=== PATIENT | male | born 1960 | race Caucasian/White ===

== ENCOUNTER 2021-02-07 11:41 | Emergency (ER) | payer OTHER ==
[2021-02-07 11:45] VITALS: TEMP 98
--- NOTE | 2021-02-07 12:02 | ED ---
General Adult HPI - General Chief complaint: Recheck/Abnormal Lab/Rx Stated complaint: cough, let sided abd pain Source: patient, RN notes reviewed, old records reviewed Mode of arrival: ambulatory Limitations: no limitations - History of Present Illness Initial comments: 61-year-old well-appearing alert and oriented 4 white male presents to the emergency room with complaints of cough since last Monday. He denies any fevers, chest pain, nausea vomiting or diarrhea. He states that his father was just diagnosed with pneumonia and told him his symptoms sounded similar to his and to come get checked out. Patient states that he decided to come in today because he's been coughing so hard that he feels like he pulled a muscle in his left side. He tried taking NyQuil and honey with no relief. Patient states the cough is nonproductive. He has a history of diabetes and hypertension -: days(s) (6) Location: abdomen (Left-sided abdominal) Severity scale (1-10): 7 Consistency: intermittent Improves with: rest Worsens with: other (Cough) Associated Symptoms: cough Treatments Prior to Arrival: other (honey, NyQuil) - Related Data Home Medications Medication Instructions Recorded Confirmed Clopidogrel [Plavix] 75 mg PO DAILY 04/02/18 07/09/18 amLODIPine [Norvasc] 10 mg PO DAILY 04/02/18 07/09/18 glipiZIDE [Glucotrol] 5 mg PO AC-BRKFST 04/02/18 07/09/18 Allergies Allergy/AdvReac Type Severity Reaction Status Date / Time No Known Allergies Allergy Verified 02/07/21 11:45 Review of Systems ROS Statement: Those systems with pertinent positive or pertinent negative responses have been documented in the HPI. ROS Other: All systems not noted in ROS Statement are negative. Past Medical History Past Medical History: Diabetes Mellitus, Hypertension History of Any Multi-Drug Resistant Organisms: None Reported Past Surgical History: Cholecystectomy Additional Past Surgical History / Comment(s): march 2018 left 5th toe amputation. Past Psychological History: No Psychological Hx Reported Smoking Status: Never smoker Past Alcohol Use History: None Reported Past Drug Use History: None Reported - Past Family History Father Family Medical History: AFIB, Hypertension Mother Family Medical History: Rheumatoid Arthritis (RA) General Exam Limitations: no limitations General appearance: alert, in no apparent distress Head exam: Present: atraumatic, normocephalic, normal inspection Eye exam: Present: normal appearance, PERRL, EOMI. Absent: scleral icterus, conjunctival injection, periorbital swelling ENT exam: Present: normal exam, normal oropharynx, mucous membranes moist Neck exam: Present: normal inspection, full ROM. Absent: tenderness, meningismus, lymphadenopathy Respiratory exam: Present: normal lung sounds bilaterally. Absent: respiratory distress, wheezes, rales, rhonchi, stridor, chest wall tenderness, accessory muscle use, decreased breath sounds Cardiovascular Exam: Present: regular rate, normal rhythm, normal heart sounds. Absent: systolic murmur, diastolic murmur, rubs, gallop, clicks GI/Abdominal exam: Present: distended. Absent: tenderness, guarding, rebound, rigid, mass, hernia Extremities exam: Present: normal inspection, full ROM, normal capillary refill. Absent: tenderness, pedal edema, joint swelling, calf tenderness Back exam: Present: full ROM. Absent: tenderness, CVA tenderness (R), CVA tenderness (L) Neurological exam: Present: alert, oriented X3, CN II-XII intact Psychiatric exam: Present: normal affect, normal mood Skin exam: Present: warm, dry, intact, normal color. Absent: rash, cyanosis, diaphoretic, petechiae, pallor Course Vital Signs 02/07/21 02/07/21 02/07/21 11:42 11:45 12:43 Temperature 98.0 F Pulse Rate 77 80 Pulse Rate [ 80 [facility] ] Respiratory 18 20 20 Rate Blood Pressure 206/104 152/101 O2 Sat by Pulse 96 97 Oximetry 02/07/21 13:34 Temperature 98.0 F Pulse Rate 82 Pulse Rate [ [facility] ] Respiratory 18 Rate Blood Pressure 158/91 O2 Sat by Pulse 98 Oximetry Medical Decision Making - Medical Decision Making Chest x-ray shows no acute pulmonary process. Patient has been afebrile and his oxygen saturation was 96% in the emergency room. He denies any chest pain, nausea , vomiting or diarrhea. States reason for visit today was he felt he pulled a muscle in the left side of his abdomen with coughing. This left-sided abdominal pain is reproducible with palpation or when patient tries to sit forward. He did get his coronavirus vaccine series in October of this year and tested negative here in the ER today. He believes that this is just a common cold as he gets them a couple times a year and usually exacerbated with his air conditioning. He states again he was here just because of muscle pain and to get some pain medication for his left side. Patient is well-appearing and was directed to return to the emergency room with any worsening symptoms. He was given some Tylenol threes to help sleep at night and directed to follow up with his primary care doctor in 1 week. Case was discussed with Dr. Interiano.. - Lab Data Lab Results 02/07/21 Range/Units 12:36 Coronavirus (PCR) Not Detected (Not Detectd) Disposition Clinical Impression: Abdominal muscle strain Disposition: HOME SELF-CARE Condition: Good Instructions (If sedation given, give patient instructions): Muscle Strain (ED) Additional Instructions: Return to the emergency room with any worsening symptoms including chest pain, worsening cough, fevers or shortness of breath. Follow-up with the primary care doctor in 1 week. Is patient prescribed a controlled substance at d/c from ED?: No Referrals: Anthony Potter [Primary Care Provider] - 1-2 days Time of Disposition: 13:16
[2021-02-07] MEDS ORDERED: HYDROcodone/APAP 5-325MG 1 EACH TAB PO STA (12:04)
--- NOTE | 2021-02-07 12:16 | XR ---
EXAMINATION TYPE: XR chest 2V DATE OF EXAM: 02/07/2021 COMPARISON: None INDICATION: Cough TECHNIQUE: Frontal and lateral views of the chest are obtained. FINDINGS: The heart size is normal. The pulmonary vasculature is normal. The lungs are clear. Nipple shadows. Be present bilaterally. IMPRESSION: 1. No acute pulmonary process.
[2021-02-07] MEDS ORDERED: ACET/COD 300 MG/30 MG STARTER PACK 6 TAB BTL PO STA (13:16)
[2021-02-07 13:37] VITALS: BP 158/91; PULSE 82; RESP 18
== END 2021-02-07 13:34 | disposition home or self-care (01) ==
LOC: EC 11:41
DX: S39.011A Strain of muscle, fascia and tendon of abdomen, initial encounter (principal); E11.9 Type 2 diabetes mellitus without complications; I10 Essential (primary) hypertension; Z82.49 Family history of ischemic heart disease and other diseases of the circulatory system; Z79.84 Long term (current) use of oral hypoglycemic drugs; Z79.899 Other long term (current) drug therapy; X58.XXXA Exposure to other specified factors, initial encounter
CPT/HCPCS: 71046; 87635; 99284

== ENCOUNTER 2021-02-26 10:29 | Emergency (ER) | payer OTHER ==
[2021-02-26 10:47] VITALS: RESP 20; TEMP 98.1
--- NOTE | 2021-02-26 12:12 | ED ---
Abdominal Pain HPI - General Chief Complaint: Abdominal Pain Stated Complaint: unable to urinate Time Seen by Provider: 02/26/21 10:51 Source: patient, RN notes reviewed Mode of arrival: ambulatory Limitations: no limitations - History of Present Illness Initial Comments: This a 61-year-old male presents emergency department complaint of lower abdominal pressure, unable to urinate. Patient states his only been getting some dribbling out. He's never been diagnosed with prostate issues. Patient states never any urinary tract infection no. Showed no upper abdominal pain. He states just feels pressure that he has to urinate. Patient denies flank pain chest pain shortness of breath or any other complaints - Related Data Home Medications Medication Instructions Recorded Confirmed glipiZIDE [Glucotrol] 5 mg PO AC-BID 04/02/18 02/26/21 Brimonidine Tartrate/Timolol 1 drop BOTH EYES BID 02/26/21 02/26/21 [Combigan 0.2%-0.5% Eye Drops] Latanoprost [Xalatan 0.005%] 1 drop BOTH EYES HS 02/26/21 02/26/21 Losartan Potassium 50 mg PO DAILY 02/26/21 02/26/21 metFORMIN HCL [Glucophage] 1,000 mg PO BID 02/26/21 02/26/21 Previous Rx's Medication Instructions Recorded Sulfamethox-Tmp 800-160Mg [Bactrim 1 each PO Q12HR #20 tab 02/26/21 Ds] Allergies Allergy/AdvReac Type Severity Reaction Status Date / Time No Known Allergies Allergy Verified 02/26/21 11:59 Review of Systems ROS Statement: Those systems with pertinent positive or pertinent negative responses have been documented in the HPI. ROS Other: All systems not noted in ROS Statement are negative. Past Medical History Past Medical History: Diabetes Mellitus, Hypertension History of Any Multi-Drug Resistant Organisms: None Reported Past Surgical History: Cholecystectomy Additional Past Surgical History / Comment(s): march 2018 left 5th toe amputation. Past Psychological History: No Psychological Hx Reported Smoking Status: Never smoker - Past Family History Father Family Medical History: AFIB, Hypertension Mother Family Medical History: Rheumatoid Arthritis (RA) General Exam Limitations: no limitations General appearance: alert, in no apparent distress Head exam: Present: atraumatic, normocephalic, normal inspection Respiratory exam: Present: normal lung sounds bilaterally. Absent: respiratory distress, wheezes, rales, rhonchi, stridor Cardiovascular Exam: Present: regular rate, normal rhythm, normal heart sounds. Absent: systolic murmur, diastolic murmur, rubs, gallop, clicks GI/Abdominal exam: Present: soft, tenderness (Suprapubic), normal bowel sounds. Absent: distended, guarding, rebound, rigid Back exam: Absent: CVA tenderness (R), CVA tenderness (L) Course Vital Signs 02/26/21 10:45 Temperature 98.1 F Pulse Rate 105 H Respiratory 20 Rate Blood Pressure 139/60 O2 Sat by Pulse 96 Oximetry Medical Decision Making - Medical Decision Making This a 61-year-old male presents emergency department for difficulty urinating. Patient does not have significant retention. Patient does have evidence of urinary tract infection. Patient we discharged on oral antibiotics return parameters were discussed. - Lab Data Lab Results 02/26/21 Range/Units 11:33 Urine Color Yellow Urine Appearance Cloudy (Clear) Urine pH 5.5 (5.0-8.0) Ur Specific [place] 1.014 (1.001-1.035) Urine Protein 2+ H (Negative) Urine Glucose (UA) Negative (Negative) Urine Ketones Trace H (Negative) Urine Blood Moderate H (Negative) Urine Nitrite Negative (Negative) Urine Bilirubin Negative (Negative) Urine Urobilinogen <2.0 (<2.0) mg/dL Ur Leukocyte Esterase Large H (Negative) Urine RBC 7 H (0-5) /hpf Urine WBC 91 H (0-5) /hpf Urine WBC Clumps Occasional H (None) /hpf Ur Squamous Epith Cells <1 (0-4) /hpf Urine Bacteria Rare H (None) /hpf Urine Mucus Rare H (None) /hpf Disposition Clinical Impression: Urinary tract infection Disposition: HOME SELF-CARE Condition: Stable Instructions (If sedation given, give patient instructions): Urinary Tract Infection in Men (ED) Additional Instructions: Please return to the Emergency Department if symptoms worsen or any other concerns. Prescriptions: Sulfamethox-Tmp 800-160Mg [Bactrim Ds] 1 each PO Q12HR #20 tab Is patient prescribed a controlled substance at d/c from ED?: No Referrals: Anthony Potter [Primary Care Provider] - 1-2 days Musa Galloway MD [STAFF PHYSICIAN] - 1-2 days Time of Disposition: 12:46
[2021-02-26 12:22] LABS: Appearance,Urine Cloudy (Clear); Bacteria,Urine Rare /hpf; Bilirubin,Urine Negative (Negative); Blood,Urine Moderate (Negative); Color,Urine Yellow; Glucose,Urine (UA) Negative (Negative); Ketones,Urine Trace (Negative); Leukocyte Esterase,Urine Large (Negative); Mucus,Urine Rare /hpf; Nitrite,Urine Negative (Negative); PH, Urine 5.5 (5.0-8.0); Protein,Urine 2+ (Negative); RBC,Urine 7 /hpf (0-5); Specific Gravity,Urine 1.014 (1.001-1.035); Squamous Epithelial Cell,Urine <1 /hpf (0-4); Urobilinogen,Urine <2.0 mg/dL (<2.0); WBC,Urine 91 /hpf (0-5)
[2021-02-26 12:58] VITALS: BP 124/85; PULSE 75
== END 2021-02-26 13:01 | disposition home or self-care (01) ==
LOC: EC 10:29
DX: R10.9 Unspecified abdominal pain (principal); N39.0 Urinary tract infection, site not specified; E11.9 Type 2 diabetes mellitus without complications; I10 Essential (primary) hypertension; Z79.84 Long term (current) use of oral hypoglycemic drugs; Z79.899 Other long term (current) drug therapy
CPT/HCPCS: 81001; 87086; 99284

== ENCOUNTER 2021-03-02 06:57 | Inpatient (IN) | payer OTHER ==
[2021-03-02] MEDS ORDERED: SODIUM CHLORIDE 0.9% 1,000 ML IV STA (07:22)
[2021-03-02] MEDS ORDERED: MORPHINE SULFATE 4 MG/ML SYRINGE IVP STA (07:24)
--- NOTE | 2021-03-02 07:46 | ED ---
General Adult HPI - General Chief complaint: Urogenital Stated complaint: Groin Pain Time Seen by Provider: 03/02/21 07:08 Source: patient Mode of arrival: ambulatory Limitations: no limitations - History of Present Illness Initial comments: 61-year-old male with a past medical history of NIDDM, hypertension presents to the emergency room for testicle swelling. Patient states he has had left testicle swelling for 2 days. States that it is very painful. Patient reports he was here last for being unable to urinate and had a catheter for ab out one hour and was treated for a urinary tract infection. Patient denies fevers or chills.Patient has no other complaints at this time including shortness of breath, chest pain, abdominal pain, nausea or vomiting, headache, or visual changes. - Related Data Home Medications Medication Instructions Recorded Confirmed glipiZIDE [Glucotrol] 5 mg PO AC-BID 04/02/18 03/02/21 Brimonidine Tartrate/Timolol 1 drop BOTH EYES BID 02/26/21 03/02/21 [Combigan 0.2%-0.5% Eye Drops] Latanoprost [Xalatan 0.005%] 1 drop BOTH EYES HS 02/26/21 03/02/21 Losartan Potassium 50 mg PO DAILY 02/26/21 03/02/21 metFORMIN HCL [Glucophage] 1,000 mg PO BID 02/26/21 03/02/21 Sulfamethox-Tmp 800-160Mg [Bactrim 1 tab PO Q12HR 03/02/21 03/02/21 Ds] Allergies Allergy/AdvReac Type Severity Reaction Status Date / Time No Known Allergies Allergy Verified 03/02/21 09:05 Review of Systems ROS Statement: Those systems with pertinent positive or pertinent negative responses have been documented in the HPI. ROS Other: All systems not noted in ROS Statement are negative. Past Medical History Past Medical History: Diabetes Mellitus, Hypertension History of Any Multi-Drug Resistant Organisms: None Reported Past Surgical History: Cholecystectomy Additional Past Surgical History / Comment(s): march 2018 left 5th toe amputation. Past Psychological History: No Psychological Hx Reported Smoking Status: Never smoker Past Alcohol Use History: None Reported Past Drug Use History: None Reported - Past Family History Father Family Medical History: AFIB, Hypertension Mother Family Medical History: Rheumatoid Arthritis (RA) General Exam Limitations: no limitations General appearance: alert Head exam: Present: atraumatic Eye exam: Present: normal appearance, PERRL, EOMI. Absent: scleral icterus ENT exam: Present: normal exam, mucous membranes moist Neck exam: Present: normal inspection, full ROM. Absent: tenderness Respiratory exam: Present: normal lung sounds bilaterally. Absent: respiratory distress, wheezes Cardiovascular Exam: Present: regular rate, normal rhythm, normal heart sounds GI/Abdominal exam: Present: soft, normal bowel sounds. Absent: distended, tenderness exam: Present: testicular tenderness (Worse on the left side), scrotal swelling (Moderate to significant scrotal swelling with erythema). Absent: other (No perineal tenderness) Course Vital Signs 03/02/21 06:59 Temperature 98 F Pulse Rate 96 Respiratory 24 Rate Blood Pressure 109/62 O2 Sat by Pulse 98 Oximetry - Reevaluation(s) Reevaluation #1: 03/02/21 07:15 Dr Tamayo also examined patient's scrotum. Medical Decision Making - Medical Decision Making Vitals are stable. Physical exam does reveal an erythematous and edematous scrotum concerning for infectious process. Laboratory evaluation was initiated. CBC shows a white blood cell count of 16.9. Left shift noted. CRP also elevated 32.7 CMP does reveal elevated creatinine compared to baseline at 2.54. Patient also has acidosis noted with a CO2 of 17. Lactic acid is normal. Pos sibly patient has ketones in his urine however we're still waiting on a urine as he is adamantly refusing a straight catheterization and has not been able to urinate. Scrotal ultrasound did reveal possible left-sided orchitis. CT abdomen and pelvis without contrast given his kidney function shows scrotal wall thickening with left-sided hydrocele, inflammatory (6 in the left inguinal canal. No evidence for drainable abscess. Patient was started on Zosyn and vancomycin. Case was discussed with Dr. Lundberg who recommended calling urology. I did talk with Dr. Blanca. At this time as there is no gas on CAT scan he does not feel this has progressed to a Ravi's gangrene. He recommends starting broad-spectrum antibiotics and admitting to medicine. I discussed this case with Dr. Anne who does except the admission. - Lab Data Result diagrams: 03/02/21 07:30 03/02/21 07:30 Lab Results 03/02/21 03/02/21 03/02/21 Range/Units 07:30 07:30 07:30 WBC 16.9 H (3.8-10.6) k/uL RBC 4.05 L (4.30-5.90) m/uL Hgb 12.8 L (13.0-17.5) gm/dL Hct 39.7 (39.0-53.0) % MCV 98.0 (80.0-100.0) fL MCH 31.6 (25.0-35.0) pg MCHC 32.2 (31.0-37.0) g/dL RDW 13.1 (11.5-15.5) % Plt Count 380 (150-450) k/uL MPV 7.9 Neutrophils % 84 % Lymphocytes % 7 % Monocytes % 5 % Eosinophils % 3 % Basophils % 0 % Neutrophils # 14.2 H (1.3-7.7) k/uL Lymphocytes # 1.1 (1.0-4.8) k/uL Monocytes # 0.9 (0-1.0) k/uL Eosinophils # 0.5 (0-0.7) k/uL Basophils # 0.1 (0-0.2) k/uL Sodium 131 L (137-145) mmol/L Potassium 4.5 (3.5-5.1) mmol/L Chloride 96 L (98-107) mmol/L Carbon Dioxide 17 L (22-30) mmol/L Anion Gap 18 mmol/L BUN 60 H (9-20) mg/dL Creatinine 2.54 H (0.66-1.25) mg/dL Est GFR (CKD-EPI)AfAm 30 (>60 ml/min/1.73 sqM) Est GFR (CKD-EPI)NonAf 26 (>60 ml/min/1.73 sqM) Glucose 143 H (74-99) mg/dL Plasma Lactic Acid Thom 1.7 (0.7-2.0) mmol/L Calcium 8.4 (8.4-10.2) mg/dL Total Bilirubin 0.6 (0.2-1.3) mg/dL AST 34 (17-59) U/L ALT 27 (4-49) U/L Alkaline Phosphatase 133 H (38-126) U/L C-Reactive Protein 32.7 H (<1.0) mg/dL Total Protein 6.7 (6.3-8.2) g/dL Albumin 3.5 (3.5-5.0) g/dL Disposition Clinical Impression: Cellulitis of scrotum, Leukocytosis, Elevated C-reactive protein (CRP), Acidosis, Scrotal edema, EMERITA (acute kidney injury) Disposition: ADMITTED IP TO THIS HOSP Is patient prescribed a controlled substance at d/c from ED?: No Referrals: Anthony Potter [Primary Care Provider] - 1-2 days Time of Disposition: 10:46
[2021-03-02 07:55] LABS: Basophils # (A) 0.1 k/uL (0-0.2); Basophils % (A) 0 %; Eosinophils # (A) 0.5 k/uL (0-0.7); Eosinophils % (A) 3 %; HCT 39.7 % (39.0-53.0); HGB 12.8 gm/dL (13.0-17.5); Lymphocytes # (A) 1.1 k/uL (1.0-4.8); Lymphocytes % (A) 7 %; MCH 31.6 pg (25.0-35.0); MCHC 32.2 g/dL (31.0-37.0); Mean Platelet Volume 7.9; Monocytes # (A) 0.9 k/uL (0-1.0); Monocytes % (A) 5 %; Neutrophils # (A) 14.2 k/uL (1.3-7.7); Neutrophils % (A) 84 %; Platelet Count 380 k/uL (150-450); RBC 4.05 m/uL (4.30-5.90); RDW 13.1 % (11.5-15.5); WBC 16.9 k/uL (3.8-10.6)
--- NOTE | 2021-03-02 08:26 | US ---
EXAMINATION TYPE: US scrotum with doppler. Grayscale and color Doppler Duplex imaging performed of t ana scrotum. DATE OF EXAM: 03/02/2021 COMPARISON: NONE CLINICAL HISTORY: edema. Redness. Swelling. Left side pain. No injury. hx recent catheter x 5 day s ago. EXAM MEASUREMENTS: TESTICLES: Right Testicle: 5.7 x 3.3 x 3.6 cm Left Testicle: 4.3 x 4.5 x 3.9 cm EPIDIDYMIS HEAD: Right Epididymis: 1.4 x 0.8 x 0.8 cm Left Epididymis: 1.9 x 1.3 x 1.0 cm Doppler performed to assess for testicular vascularity; good bilateral color flow and waveforms are s een. There is no evidence of testicular torsion. Presence of hydroceles: no Presence of varicoceles: no Left testicle appears heterogenous. Edema visualized. Left teste appears hypervascular compared to right. IMPRESSION: 1. Clinical consideration for left side orchitis.
[2021-03-02 08:46] LABS: Albumin 3.5 g/dL (3.5-5.0); Calcium 8.4 mg/dL (8.4-10.2); Potassium 4.5 mmol/L (3.5-5.1); Total Bilirubin 0.6 mg/dL (0.2-1.3); Total Protein 6.7 g/dL (6.3-8.2)
[2021-03-02] MEDS ORDERED: VANCOMYCIN IV PER PHARMACY 1 EACH MISC MISCELLANE PRN (09:08)
[2021-03-02] MEDS ORDERED: PIPERACILLIN-TAZOBACTAM 3.375 GM in SODIUM CHLORIDE 0.9% 100 ML IVPB STA (09:08)
[2021-03-02] MEDS ORDERED: SODIUM CHLORIDE 0.9% 500 ML 500 ML IV STA (09:09)
[2021-03-02] MEDS ORDERED: VANCOMYCIN 1,750 MG in SODIUM CHLORIDE 0.9% 500 ML 500 ML IVPB STA (09:14)
--- NOTE | 2021-03-02 09:40 | CT ---
EXAMINATION TYPE: CT abdomen pelvis wo con DATE OF EXAM: 03/02/2021 COMPARISON: HISTORY: Scrotum pain. CT DLP: 1359.9 mGycm Examination of the solid and hollow viscera is limited given the lack of contrast. FINDINGS: LUNG BASES: No evidence for nodule. No evidence for infiltrate. LIVER/GB: The gallbladder is surgically absent. No space-occupying hepatic lesion. PANCREAS: No pancreatic mass identified. No inflammatory process seen. SPLEEN: No evidence for splenomegaly. No intrasplenic lesions seen. ADRENALS: No adrenal nodules identified. No evidence for thickening. KIDNEYS: No evidence for renal mass. 4 mm calculus lower pole right kidney. No hydronephrosis. BOWEL: Appendix has a normal appearance. No evidence of bowel obstruction. No inflammatory process. Lymph nodes: No evidence for adenopathy greater than 1 cm. Abdominal aorta: Atheromatous changes seen. No evidence for aneurysm. Genital organs: There is scrotal wall thickening noted with left-sided hydrocele. Inflammatory proces s extends into the left inguinal canal. No evidence for drainable abscess. Other: No significant abnormality. IMPRESSION: 1.There is scrotal wall thickening noted with left-sided hydrocele. Inflammatory process extends into the left inguinal canal. No evidence for drainable abscess. 2. Nonobstructing nephrolithiasis.
[2021-03-02 09:55] LABS: C Reactive Protein 32.7 mg/dL (<1.0)
[2021-03-02] MEDS ORDERED: NALOXONE 0.4 MG/ML 1 ML VIAL IV PRN (10:46)
[2021-03-02 11:21] LABS: Glucose,Whole Blood 136 mg/dL (75-99)
[2021-03-02] MEDS: SODIUM CHLORIDE 0.9% 1,000 ML IV SCH ×2 (11:41→17:47)
[2021-03-02] MEDS: INSULIN ASPART (NovoLOG) 100 UNIT/ML VIAL SQ SCH ×3 (11:44→20:46)
[2021-03-02 14:15] LABS: Appearance,Urine Cloudy (Clear); Bilirubin,Urine Negative (Negative); Blood,Urine Moderate (Negative); Color,Urine Yellow; Glucose,Urine (UA) Negative (Negative); Hyaline Casts,Urine 7 /lpf (0-2); Ketones,Urine 1+ (Negative); Leukocyte Esterase,Urine Large (Negative); Nitrite,Urine Negative (Negative); PH, Urine 5.5 (5.0-8.0); Protein,Urine 1+ (Negative); RBC,Urine 8 /hpf (0-5); Specific Gravity,Urine 1.011 (1.001-1.035); Urobilinogen,Urine <2.0 mg/dL (<2.0); WBC,Urine 132 /hpf (0-5)
[2021-03-02] MEDS: MORPHINE SULFATE 4 MG/ML SYRINGE IV PRN (14:27)
--- NOTE | 2021-03-02 14:30 | P.HPIM ---
<Kei Harding - Last Filed: 03/02/21 15:37> History of Present Illness H&P Date: 03/02/21 History of Presenting Illness: Patient is a 61-year-old male with a past medical history of hypertension and type II uav-rifzufb-fieqcinal diabetes mellitus. Patient reports that he was re cently diagnosed with a UTI on 02/26/21 after presenting to the emergency department with the chief complaint of difficulties with urination and was discharged home on Bactrim 8001 60 mg every 12 hours 10 days. Patient reports he has been taking antibiotic as prescribed but states that evening he began noticing testicular pain and swelling. Patient reports this pain and swelling significantly increased throughout the weekend and states he came to the emergency department today because he could no longer tolerate the pain he was in. Patient was seen and fully evaluated in the emergency department. CT abdomen and pelvis revealing scrotal wall thickening with left-sided hydrocele reporting inflammatory process extended into the left inguinal canal with no evidence of drainable abscess reported. Scrotal ultrasound concerning for left- sided orchitis. Lactate normal findings at 1.7. CRP was elevated at 32.7 and patient positive for leukocytosis with WBC count of 16.9. Urinalysis was positive for infection. Patient started on IV antibiotics vancomycin and Zosyn. Patient admitted under our services with consultation to urology. Upon physical exam at bedside, patient reports having chills with testicular pain and swelling but states over the past 2 days he has been urinating without any difficulties. Patient denies having fever, headache, lightheadedness, dizziness, chest pain, palpitations, shortness of breath, abdominal pain, suprapubic pain or pressure, or experiencing any penile discharge, hematuria, or dysuria. Review of systems: Pertinent positives and negatives as discussed in HPI, a complete review of systems was performed and all other systems are negative. Physical exam: Vital signs reviewed and stable. General: Nontoxic, no distress and appears stated age. Derm: Skin warm and dry, normal coloration for ethnicity. Head: Atraumatic, normocephalic and symmetric. Eyes: EOMs intact, no lid lag, and anicteric sclera Mouth: no lip lesions, mucus membranes moist Cardiovascular: regular rate and rhythm with normal S1S2, no murmur, positive posterior tibial pulses bilaterally, and cap refill < 2 seconds. Lungs: Respirations even, regular, and unlabored on room air. Lungs CTA bilaterally, no rhonchi, no rales, no wheezing, and no accessory muscle usage. GI/: Abdomen soft, nontender to palpation, no guarding, no appreciable organomegaly. Significant left testicular swelling and erythema with increased warmth. Patient reports significantly painful to touch. Ext: ROM intact. No gross muscle atrophy, no edema, no contractures Neuro: Speech clear, face symmetrical and CN II-XII grossly intact with no noted focal neuro deficits Psych: Alert and oriented to person, place, time, and situation. Appropriate and pleasant affect. Assessment and Plan of Care: Left testicular pain and swelling, scrotal ultrasound concerning for left-sided Orchitis UTI, failed outpatient treatment -CT abdomen and pelvis revealing scrotal wall thickening with left-sided hydrocele reporting inflammatory process extended into the left inguinal canal with no evidence of drainable abscess reported. -Scrotal ultrasound concerning for left-sided orchitis. -Urine culture -Blood culture -Continue IV antibiotics vancomycin and Zosyn pending culture results -Bladder management -Consult to urology, appreciate further recommendations. Hypertension -Monitor vital signs and continue daily medication regimen with losartan. Type II ahp-[id number] diabetes mellitus -Hold oral glycemic medications in place patient on glycemic protocol with NovoLog sliding scale. -Heart healthy and carb consistent diet. Glaucoma -Continue daily medication regimen The patient is admitted with an anticipated greater than 2 midnight stay for evaluation of left-sided orchitis. CODE STATUS: Full code DVT prophylaxis: Heparin Discussed with: Patient and RN Anticipated discharge date: Clinical course to determine Anticipated discharge place: Home A total of 45 minutes was spent on the care of this complex patient more than 50% of the time was spent in counseling and care coordination. Past Medical History Past Medical History: Diabetes Mellitus, Hypertension History of Any Multi-Drug Resistant Organisms: None Reported Past Surgical History: Cholecystectomy Additional Past Surgical History / Comment(s): march 2018 left 5th toe amputation. Past Anesthesia/Blood Transfusion Reactions: No Reported Reaction Past Psychological History: No Psychological Hx Reported Smoking Status: Never smoker Past Alcohol Use History: None Reported Past Drug Use History: None Reported - Past Family History Father Family Medical History: AFIB, Hypertension Mother Family Medical History: Rheumatoid Arthritis (RA) Medications and Allergies Home Medications Medication Instructions Recorded Confirmed Type glipiZIDE [Glucotrol] 5 mg PO AC-BID 04/02/18 03/02/21 History Brimonidine Tartrate/Timolol 1 drop BOTH EYES BID 02/26/21 03/02/21 History [Combigan 0.2%-0.5% Eye Drops] Latanoprost [Xalatan 0.005%] 1 drop BOTH EYES HS 02/26/21 03/02/21 History Losartan Potassium 50 mg PO DAILY 02/26/21 03/02/21 History metFORMIN HCL [Glucophage] 1,000 mg PO BID 02/26/21 03/02/21 History Sulfamethox-Tmp 800-160Mg [Bactrim 1 tab PO Q12HR 03/02/21 03/02/21 History Ds] Allergies Allergy/AdvReac Type Severity Reaction Status Date / Time No Known Allergies Allergy Verified 03/02/21 09:05 Physical Exam Vitals: Vital Signs Temp Pulse Pulse Resp BP BP Pulse Ox 03/02/21 14:23 97.9 F 84 18 122/67 96 03/02/21 11:29 76 18 103/69 96 03/02/21 06:59 98 F 96 24 109/62 98 Intake and Output 03/01/21 03/02/21 03/02/21 22:59 06:59 14:59 Other: Voiding Method Urinal # Voids 1 Weight 104.326 kg 104.326 kg Results CBC & Chem 7: 03/02/21 07:30 03/02/21 07:30 Labs: Abnormal Lab Results - Last 24 Hours (Table) 03/02/21 03/02/21 03/02/21 Range/Units 07:30 07:30 07:30 WBC 16.9 H (3.8-10.6) k/uL RBC 4.05 L (4.30-5.90) m/uL Hgb 12.8 L (13.0-17.5) gm/dL Neutrophils # 14.2 H (1.3-7.7) k/uL Sodium 131 L (137-145) mmol/L Chloride 96 L (98-107) mmol/L Carbon Dioxide 17 L (22-30) mmol/L BUN 60 H (9-20) mg/dL Creatinine 2.54 H (0.66-1.25) mg/dL Glucose 143 H (74-99) mg/dL POC Glucose (mg/dL) (75-99) mg/dL Alkaline Phosphatase 133 H (38-126) U/L C-Reactive Protein 32.7 H (<1.0) mg/dL Urine Protein 1+ H (Negative) Urine Ketones 1+ H (Negative) Urine Blood Moderate H (Negative) Ur Leukocyte Esterase Large H (Negative) Urine RBC 8 H (0-5) /hpf Urine WBC 132 H (0-5) /hpf Urine WBC Clumps Occasional H (None) /hpf Hyaline Casts 7 H (0-2) /lpf 03/02/21 Range/Units 11:18 WBC (3.8-10.6) k/uL RBC (4.30-5.90) m/uL Hgb (13.0-17.5) gm/dL Neutrophils # (1.3-7.7) k/uL Sodium (137-145) mmol/L Chloride (98-107) mmol/L Carbon Dioxide (22-30) mmol/L BUN (9-20) mg/dL Creatinine (0.66-1.25) mg/dL Glucose (74-99) mg/dL POC Glucose (mg/dL) 136 H (75-99) mg/dL Alkaline Phosphatase (38-126) U/L C-Reactive Protein (<1.0) mg/dL Urine Protein (Negative) Urine Ketones (Negative) Urine Blood (Negative) Ur Leukocyte Esterase (Negative) Urine RBC (0-5) /hpf Urine WBC (0-5) /hpf Urine WBC Clumps (None) /hpf Hyaline Casts (0-2) /lpf Thrombosis Risk Factor Assmnt - Choose All That Apply Each Factor Represents 1 point: Obesity (BMI >25) Each Risk Factor Represents 2 Points: Age 61-74 years Each Risk Factor Represents 3 Points: Family history of DVT/PE Thrombosis Risk Factor Assessment Total Risk Factor Score: 6 Thrombosis Risk Factor Assessment Level: High Risk <Yumiko Chavarria - Last Filed: 03/02/21 19:44> History of Present Illness Patient seen and examined independently. Patient was also seen by Kei Harding NP and case was discussed. I am in agreement with subjective, physical exam, assessment and plan as written above and amended below. Complains of testicular pain, does not want recurrent Vu catheter. No nausea, vomiting, or diarrhea. Additional diagnosis: Acute kidney injury, hyponatremia Anion gap metabolic acidosis of undetermined etiology -Likely secondary to decreased oral intake, also possible interstitial nephritis due to bactrim -Hold Cozaar and bactrim -IV fluids -Repeat BMP in a.m. -Pharmacy to dose vancomycin -Avoid additional nephrotoxic agents General: non toxic, no distress, appears at stated age Derm: warm, dry Head: atraumatic, normocephalic, symmetric Eyes: EOMI, no lid lag, anicteric sclera Mouth: no lip lesion, mucus membranes moist Cardiovascular: S1S2 reg, no murmur, positive posterior tibial pulse bilateral, Lungs: CTA bilateral, no rhonchi, no rales , no accessory muscle use Abdominal: soft, nontender to palpation, no guarding, no appreciable organomegaly Genitourinary: Circumcised male with significant induration, erythema, and swelling of bilateral testicles with tenderness to palpation Ext: no gross muscle atrophy, no edema, no contractures Neuro: CN II-XI grossly intact, no focal neuro deficits Psych: Alert, oriented, appropriate affect Physical Exam Osteopathic Statement: *. No significant issues noted on an osteopathic structural exam other than those noted in the History and Physical/Consult. Vitals: Vital Signs Temp Pulse Pulse Resp BP BP Pulse Ox 03/02/21 14:23 97.9 F 84 18 122/67 96 03/02/21 11:29 76 18 103/69 96 03/02/21 06:59 98 F 96 24 109/62 98 Intake and Output 03/02/21 03/02/21 03/02/21 06:59 14:59 22:59 Other: Voiding Method Urinal # Voids 1 Weight 104.326 kg 104.326 kg Results CBC & Chem 7: 03/02/21 07:30 03/02/21 07:30 Labs: Abnormal Lab Results - Last 24 Hours (Table) 03/02/21 03/02/21 03/02/21 Range/Units 07:30 07:30 07:30 WBC 16.9 H (3.8-10.6) k/uL RBC 4.05 L (4.30-5.90) m/uL Hgb 12.8 L (13.0-17.5) gm/dL Neutrophils # 14.2 H (1.3-7.7) k/uL Sodium 131 L (137-145) mmol/L Chloride 96 L (98-107) mmol/L Carbon Dioxide 17 L (22-30) mmol/L BUN 60 H (9-20) mg/dL Creatinine 2.54 H (0.66-1.25) mg/dL Glucose 143 H (74-99) mg/dL POC Glucose (mg/dL) (75-99) mg/dL Alkaline Phosphatase 133 H (38-126) U/L C-Reactive Protein 32.7 H (<1.0) mg/dL Urine Protein 1+ H (Negative) Urine Ketones 1+ H (Negative) Urine Blood Moderate H (Negative) Ur Leukocyte Esterase Large H (Negative) Urine RBC 8 H (0-5) /hpf Urine WBC 132 H (0-5) /hpf Urine WBC Clumps Occasional H (None) /hpf Hyaline Casts 7 H (0-2) /lpf 03/02/21 03/02/21 Range/Units 11:18 17:20 WBC (3.8-10.6) k/uL RBC (4.30-5.90) m/uL Hgb (13.0-17.5) gm/dL Neutrophils # (1.3-7.7) k/uL Sodium (137-145) mmol/L Chloride (98-107) mmol/L Carbon Dioxide (22-30) mmol/L BUN (9-20) mg/dL Creatinine (0.66-1.25) mg/dL Glucose (74-99) mg/dL POC Glucose (mg/dL) 136 H 182 H (75-99) mg/dL Alkaline Phosphatase (38-126) U/L C-Reactive Protein (<1.0) mg/dL Urine Protein (Negative) Urine Ketones (Negative) Urine Blood (Negative) Ur Leukocyte Esterase (Negative) Urine RBC (0-5) /hpf Urine WBC (0-5) /hpf Urine WBC Clumps (None) /hpf Hyaline Casts (0-2) /lpf
--- NOTE | 2021-03-02 16:32 | P.GSCN ---
History of Present Illness Consult date: 03/02/21 Reason for Consult: Left epididymo-orchitis Requesting physician: Yumiko Chavarria History of present illness: The patient is a 61-year-old white male who presented to the ER on February 26 with complaints of difficulty voiding. Urinalysis was suggestive of infection, and he was treated with Bactrim DS. A urine culture showed Staph aureus. He presented back to the ER today with left scrotal pain and swelling of 2-3 days duration. Ultrasound shows the left testicle to be heterogenous, hypervascular, with surrounding edema. CT scan shows similar findings. Neither study shows evidence of abscess or subcutaneous air. Review of Systems - Constitutional Denies chills, Denies fever - Genitourinary Reports as per HPI Past Medical History Past Medical History: Diabetes Mellitus, Hypertension History of Any Multi-Drug Resistant Organisms: None Reported Past Surgical History: Cholecystectomy Additional Past Surgical History / Comment(s): march 2018 left 5th toe amputation. Past Anesthesia/Blood Transfusion Reactions: No Reported Reaction Past Psychological History: No Psychological Hx Reported Smoking Status: Never smoker Past Alcohol Use History: None Reported Past Drug Use History: None Reported - Past Family History Father Family Medical History: AFIB, Hypertension Mother Family Medical History: Rheumatoid Arthritis (RA) Medications and Allergies Home Medications Medication Instructions Recorded Confirmed Type glipiZIDE [Glucotrol] 5 mg PO AC-BID 04/02/18 03/02/21 History Brimonidine Tartrate/Timolol 1 drop BOTH EYES BID 02/26/21 03/02/21 History [Combigan 0.2%-0.5% Eye Drops] Latanoprost [Xalatan 0.005%] 1 drop BOTH EYES HS 02/26/21 03/02/21 History Losartan Potassium 50 mg PO DAILY 02/26/21 03/02/21 History metFORMIN HCL [Glucophage] 1,000 mg PO BID 02/26/21 03/02/21 History Sulfamethox-Tmp 800-160Mg [Bactrim 1 tab PO Q12HR 03/02/21 03/02/21 History Ds] Allergies Allergy/AdvReac Type Severity Reaction Status Date / Time No Known Allergies Allergy Verified 03/02/21 09:05 Surgical - Exam Vital Signs Temp Pulse Resp BP Pulse Ox 98 F 96 24 109/62 98 03/02/21 06:59 03/02/21 06:59 03/02/21 06:59 03/02/21 06:59 03/02/21 06:59 - General well developed, well nourished, no distress - Respiratory normal respiratory effort - Abdomen Abdomen: soft, non tender, no guarding, no rigid, no rebound - Genitourinary Normal phallus, normal urethral meatus. The left testicle is enlarged and tender, consistent with epididymo-orchitis. There is evidence of left scrotal wall edema. There is no evidence of fluctuance, crepitance, or drainage. - Psychiatric oriented to time, oriented to person, oriented to place, speech is normal, memory intact Results - Labs 03/02/21 07:30 03/02/21 07:30 Abnormal Lab Results - Last 24 Hours (Table) 03/02/21 03/02/21 03/02/21 Range/Units 07:30 07:30 07:30 WBC 16.9 H (3.8-10.6) k/uL RBC 4.05 L (4.30-5.90) m/uL Hgb 12.8 L (13.0-17.5) gm/dL Neutrophils # 14.2 H (1.3-7.7) k/uL Sodium 131 L (137-145) mmol/L Chloride 96 L (98-107) mmol/L Carbon Dioxide 17 L (22-30) mmol/L BUN 60 H (9-20) mg/dL Creatinine 2.54 H (0.66-1.25) mg/dL Glucose 143 H (74-99) mg/dL POC Glucose (mg/dL) (75-99) mg/dL Alkaline Phosphatase 133 H (38-126) U/L C-Reactive Protein 32.7 H (<1.0) mg/dL Urine Protein 1+ H (Negative) Urine Ketones 1+ H (Negative) Urine Blood Moderate H (Negative) Ur Leukocyte Esterase Large H (Negative) Urine RBC 8 H (0-5) /hpf Urine WBC 132 H (0-5) /hpf Urine WBC Clumps Occasional H (None) /hpf Hyaline Casts 7 H (0-2) /lpf 03/02/21 Range/Units 11:18 WBC (3.8-10.6) k/uL RBC (4.30-5.90) m/uL Hgb (13.0-17.5) gm/dL Neutrophils # (1.3-7.7) k/uL Sodium (137-145) mmol/L Chloride (98-107) mmol/L Carbon Dioxide (22-30) mmol/L BUN (9-20) mg/dL Creatinine (0.66-1.25) mg/dL Glucose (74-99) mg/dL POC Glucose (mg/dL) 136 H (75-99) mg/dL Alkaline Phosphatase (38-126) U/L C-Reactive Protein (<1.0) mg/dL Urine Protein (Negative) Urine Ketones (Negative) Urine Blood (Negative) Ur Leukocyte Esterase (Negative) Urine RBC (0-5) /hpf Urine WBC (0-5) /hpf Urine WBC Clumps (None) /hpf Hyaline Casts (0-2) /lpf Diabetes panel 03/02/21 Range/Units 07:30 Sodium 131 L (137-145) mmol/L Potassium 4.5 (3.5-5.1) mmol/L Chloride 96 L (98-107) mmol/L Carbon Dioxide 17 L (22-30) mmol/L BUN 60 H (9-20) mg/dL Creatinine 2.54 H (0.66-1.25) mg/dL Glucose 143 H (74-99) mg/dL Calcium 8.4 (8.4-10.2) mg/dL AST 34 (17-59) U/L ALT 27 (4-49) U/L Alkaline Phosphatase 133 H (38-126) U/L Total Protein 6.7 (6.3-8.2) g/dL Albumin 3.5 (3.5-5.0) g/dL Calcium panel 03/02/21 Range/Units 07:30 Calcium 8.4 (8.4-10.2) mg/dL Albumin 3.5 (3.5-5.0) g/dL Pituitary panel 03/02/21 Range/Units 07:30 Sodium 131 L (137-145) mmol/L Potassium 4.5 (3.5-5.1) mmol/L Chloride 96 L (98-107) mmol/L Carbon Dioxide 17 L (22-30) mmol/L BUN 60 H (9-20) mg/dL Creatinine 2.54 H (0.66-1.25) mg/dL Glucose 143 H (74-99) mg/dL Calcium 8.4 (8.4-10.2) mg/dL Adrenal panel 03/02/21 Range/Units 07:30 Sodium 131 L (137-145) mmol/L Potassium 4.5 (3.5-5.1) mmol/L Chloride 96 L (98-107) mmol/L Carbon Dioxide 17 L (22-30) mmol/L BUN 60 H (9-20) mg/dL Creatinine 2.54 H (0.66-1.25) mg/dL Glucose 143 H (74-99) mg/dL Calcium 8.4 (8.4-10.2) mg/dL Total Bilirubin 0.6 (0.2-1.3) mg/dL AST 34 (17-59) U/L ALT 27 (4-49) U/L Alkaline Phosphatase 133 H (38-126) U/L Total Protein 6.7 (6.3-8.2) g/dL Albumin 3.5 (3.5-5.0) g/dL - Imaging CT scan - pelvis: report reviewed, image reviewed US - pelvic: report reviewed Assessment and Plan Plan: The patient has been admitted for treatment of left epididymo-orchitis. He is receiving Zosyn and vancomycin, pending urine and blood cultures. As stated, the urine culture from February 26 showed Staph aureus, sensitive to vancomycin. There is no indication for surgical intervention at this time, the but the patient will be watched closely for the development of an abscess or necrotizing fasciitis. Time with Patient: Greater than 30
[2021-03-02] MEDS: HEPARIN SODIUM,PORCINE/PF 5,000 UNIT/0.5 ML SYRINGE SQ SCH (17:01)
[2021-03-02] MEDS: PIPERACILLIN-TAZOBACTAM 3.375 GM in SODIUM CHLORIDE 0.9% 100 ML IVPB SCH (17:01)
[2021-03-02 17:21] LABS: Glucose,Whole Blood 182 mg/dL (75-99)
[2021-03-02] MEDS: TIMOLOL 0.5% OPHTH DROPS 5 ML BTL BOTH EYES SCH (20:11)
[2021-03-02] MEDS: BRIMONIDINE TARTRATE 0.2% DROPS 5 ML BTL BOTH EYES SCH (20:12)
[2021-03-02] MEDS: LATANOPROST 0.005% OPHTH DROPS 2.5 ML BTL BOTH EYES SCH (20:12)
[2021-03-02 20:38] LABS: Glucose,Whole Blood 165 mg/dL (75-99)
[2021-03-02] MEDS ORDERED: NON FORMULARY DRUG (Brimonidine Tartrate/Timolol [Combigan 0.2%-0.5% Eye Drops] 5 ML Drops BOTH EYES SCH (21:00)
[2021-03-02 21:44] LABS: Alcohol <10 mg/dL
[2021-03-03] MEDS: HEPARIN SODIUM,PORCINE/PF 5,000 UNIT/0.5 ML SYRINGE SQ SCH ×4 (01:08→23:29)
[2021-03-03] MEDS: PIPERACILLIN-TAZOBACTAM 3.375 GM in SODIUM CHLORIDE 0.9% 100 ML IVPB SCH ×4 (01:09→23:29)
[2021-03-03] MEDS: SODIUM CHLORIDE 0.9% 1,000 ML IV SCH ×3 (03:31→18:01)
[2021-03-03] MEDS: VANCOMYCIN 1,750 MG in SODIUM CHLORIDE 0.9% 500 ML 500 ML IVPB SCH (05:44)
[2021-03-03 06:10] LABS: HCT 34.5 % (39.0-53.0); HGB 10.7 gm/dL (13.0-17.5); MCH 30.9 pg (25.0-35.0); MCHC 30.9 g/dL (31.0-37.0); MCV 100.1 fL (80.0-100.0); Platelet Count 355 k/uL (150-450); RBC 3.45 m/uL (4.30-5.90); RDW 12.6 % (11.5-15.5); WBC 15.1 k/uL (3.8-10.6)
[2021-03-03 06:20] LABS: Magnesium 1.8 mg/dL (1.6-2.3)
[2021-03-03 06:31] LABS: C Reactive Protein 21.1 mg/dL (<1.0)
[2021-03-03 06:47] LABS: African American GFR (CKD) 42 (>60 ml/min/1.73 sqM); Anion Gap 10 mmol/L; Blood Urea Nitrogen 49 mg/dL (9-20); Calcium 7.9 mg/dL (8.4-10.2); Carbon Dioxide 16 mmol/L (22-30); Chloride 107 mmol/L (98-107); Glucose 203 mg/dL (74-99); Non-African American GFR(CKD) 37 (>60 ml/min/1.73 sqM); Potassium 4.9 mmol/L (3.5-5.1); Sodium 133 mmol/L (137-145)
[2021-03-03 07:03] LABS: Glucose,Whole Blood 179 mg/dL (75-99)
[2021-03-03] MEDS: INSULIN ASPART (NovoLOG) 100 UNIT/ML VIAL SQ SCH ×4 (07:47→21:33)
[2021-03-03] MEDS: MORPHINE SULFATE 4 MG/ML SYRINGE IV PRN ×3 (07:49→23:29)
[2021-03-03] MEDS: BRIMONIDINE TARTRATE 0.2% DROPS 5 ML BTL BOTH EYES SCH ×2 (08:00→21:34)
[2021-03-03] MEDS: TIMOLOL 0.5% OPHTH DROPS 5 ML BTL BOTH EYES SCH ×2 (08:00→21:34)
[2021-03-03] MEDS ORDERED: LOSARTAN 50 MG TAB PO SCH (09:00)
--- NOTE | 2021-03-03 09:00 | P.PN ---
Subjective Progress Note Date: 03/03/21 Principal diagnosis: Left epididymo-orchitis The patient was admitted yesterday for treatment of left epididymo-orchitis. He is currently receiving vancomycin and Zosyn. He feels that his pain may be slightly improved. Objective - Vital Signs Vital signs: Vital Signs Temp 97.5 F L 03/03/21 04:41 Pulse 88 03/03/21 04:41 Resp 18 03/03/21 04:41 BP 132/61 03/03/21 04:41 Pulse Ox 94 L 03/03/21 04:41 Intake & Output 03/02/21 03/02/21 03/03/21 06:59 18:59 06:59 Intake Total 600 Balance 600 Weight 104.326 kg 104.326 kg Intake: Oral 600 Other: Voiding Method Urinal Urinal # Voids 1 - Constitutional General appearance: Present: cooperative, no acute distress - Genitourinary Genitourinary Comment(s): The penis is normal. The left testicle remains enlarged and tender. The scrotal skin is edematous. There is no evidence of abscess or crepitus. - Labs CBC & Chem 7: 03/03/21 05:22 03/03/21 05:22 Labs: Abnormal Lab Results - Last 24 Hours (Table) 03/02/21 03/02/21 03/02/21 Range/Units 07:30 07:30 07:30 WBC 16.9 H (3.8-10.6) k/uL RBC 4.05 L (4.30-5.90) m/uL Hgb 12.8 L (13.0-17.5) gm/dL Hct (39.0-53.0) % MCV (80.0-100.0) fL MCHC (31.0-37.0) g/dL Neutrophils # 14.2 H (1.3-7.7) k/uL Sodium 131 L (137-145) mmol/L Chloride 96 L (98-107) mmol/L Carbon Dioxide 17 L (22-30) mmol/L BUN 60 H (9-20) mg/dL Creatinine 2.54 H (0.66-1.25) mg/dL Glucose 143 H (74-99) mg/dL POC Glucose (mg/dL) (75-99) mg/dL Calcium (8.4-10.2) mg/dL Alkaline Phosphatase 133 H (38-126) U/L C-Reactive Protein 32.7 H (<1.0) mg/dL Urine Protein 1+ H (Negative) Urine Ketones 1+ H (Negative) Urine Blood Moderate H (Negative) Ur Leukocyte Esterase Large H (Negative) Urine RBC 8 H (0-5) /hpf Urine WBC 132 H (0-5) /hpf Urine WBC Clumps Occasional H (None) /hpf Hyaline Casts 7 H (0-2) /lpf 03/02/21 03/02/21 03/02/21 Range/Units 11:18 17:20 20:37 WBC (3.8-10.6) k/uL RBC (4.30-5.90) m/uL Hgb (13.0-17.5) gm/dL Hct (39.0-53.0) % MCV (80.0-100.0) fL MCHC (31.0-37.0) g/dL Neutrophils # (1.3-7.7) k/uL Sodium (137-145) mmol/L Chloride (98-107) mmol/L Carbon Dioxide (22-30) mmol/L BUN (9-20) mg/dL Creatinine (0.66-1.25) mg/dL Glucose (74-99) mg/dL POC Glucose (mg/dL) 136 H 182 H 165 H (75-99) mg/dL Calcium (8.4-10.2) mg/dL Alkaline Phosphatase (38-126) U/L C-Reactive Protein (<1.0) mg/dL Urine Protein (Negative) Urine Ketones (Negative) Urine Blood (Negative) Ur Leukocyte Esterase (Negative) Urine RBC (0-5) /hpf Urine WBC (0-5) /hpf Urine WBC Clumps (None) /hpf Hyaline Casts (0-2) /lpf 03/03/21 03/03/21 03/03/21 Range/Units 05:22 05:22 05:22 WBC 15.1 H (3.8-10.6) k/uL RBC 3.45 L (4.30-5.90) m/uL Hgb 10.7 L (13.0-17.5) gm/dL Hct 34.5 L (39.0-53.0) % MCV 100.1 H (80.0-100.0) fL MCHC 30.9 L (31.0-37.0) g/dL Neutrophils # (1.3-7.7) k/uL Sodium 133 L (137-145) mmol/L Chloride (98-107) mmol/L Carbon Dioxide 16 L (22-30) mmol/L BUN 49 H (9-20) mg/dL Creatinine 1.92 H (0.66-1.25) mg/dL Glucose 203 H (74-99) mg/dL POC Glucose (mg/dL) (75-99) mg/dL Calcium 7.9 L (8.4-10.2) mg/dL Alkaline Phosphatase (38-126) U/L C-Reactive Protein 21.1 H (<1.0) mg/dL Urine Protein (Negative) Urine Ketones (Negative) Urine Blood (Negative) Ur Leukocyte Esterase (Negative) Urine RBC (0-5) /hpf Urine WBC (0-5) /hpf Urine WBC Clumps (None) /hpf Hyaline Casts (0-2) /lpf Microbiology - Last 24 Hours (Table) 03/02/21 07:30 Urine Culture - Preliminary Urine,Voided Assessment and Plan Plan: The patient's epididymo-orchitis is stable to slightly improved. He is receiving Zosyn and vancomycin, pending urine and blood cultures. There is no indication for surgical intervention at this time, the but the patient will be watched closely for the development of an abscess or necrotizing fasciitis.
[2021-03-03 10:47] LABS: Amphetamine Screen,Urine Not Detected (NotDetected); Barbiturate Screen,Urine Not Detected (NotDetected); Benzodiazepines Screen,Urine Not Detected (NotDetected); Cocaine Screen,Urine Not Detected (NotDetected); Methadone Screen, Urine Not Detected (NotDetected); Opiate Screen,Urine Detected (NotDetected); Oxycodone Screen, Urine Not Detected (NotDetected); Phencyclidine Screen,Urine Not Detected (NotDetected); Tricyclic Antidepressant,Urine Not Detected (NotDetected); Urn Cannabinoid Scrn Not Detected (NotDetected)
[2021-03-03 11:33] LABS: Glucose,Whole Blood 261 mg/dL (75-99)
--- NOTE | 2021-03-03 14:21 | P.PN ---
<Kei Harding - Last Filed: 03/03/21 14:08> Progress Note - Text Progress Note Date: 03/03/21 Hospital course: Patient is a 61-year-old male with a past medical history of hypertension and type II byv-gfucdjz-ofefogtbw diabetes mellitus. Patient reports that he was recently diagnosed with a UTI on 02/26/21 after presenting to the emergency department with the chief complaint of difficulties with urination and was discharged home on Bactrim 8001 60 mg every 12 hours 10 days. Patient reports he has been taking antibiotic as prescribed but states that evening he began noticing testicular pain and swelling. Patient reports this pain and swelling significantly increased throughout the weekend and states he came to the emergency department today because he could no longer tolerate the pain he was in. Patient was seen and fully evaluated in the emergency department. CT abdomen and pelvis revealing scrotal wall thickening with left-sided hydrocele reporting inflammatory process extended into the left inguinal canal with no evidence of drainable abscess reported. Scrotal ultrasound concerning for left- sided orchitis. Lactate normal findings at 1.7. CRP was elevated at 32.7 and patient positive for leukocytosis with WBC count of 16.9. AK with BUN 60, creatinine 2.54, and GFR of 26. Urinalysis was positive for infection. Patient started on IV antibiotics vancomycin and Zosyn. Patient admitted under our services with consultation to urology. 03/03/21: Patient was seen and fully evaluated at the bedside this morning. He reports continued testicular swelling and pain. Upon assessment testicular swelling shows slight improvement however significant erythema and reports of tenderness to touch remains. Patient reports that he continues to urinate without any difficulties and denies having any dysuria or hematuria. Physical exam: Vital signs reviewed and stable. General: Nontoxic, no distress and appears stated age. Derm: Skin warm and dry, normal coloration for ethnicity. Head: Atraumatic, normocephalic and symmetric. Eyes: EOMs intact, no lid lag, and anicteric sclera Mouth: no lip lesions, mucus membranes moist Cardiovascular: regular rate and rhythm with normal S1S2, no murmur, positive posterior tibial pulses bilaterally, and cap refill < 2 seconds. Lungs: Respirations even, regular, and unlabored on room air. Lungs CTA bilaterally, no rhonchi, no rales, no wheezing, and no accessory muscle usage. GI/: Abdomen soft, nontender to palpation, no guarding, no appreciable organomegaly. Significant left testicular swelling and erythema with increased warmth. Patient reports significantly painful to touch. Ext: ROM intact. No gross muscle atrophy, no edema, no contractures Neuro: Speech clear, face symmetrical and CN II-XII grossly intact with no noted focal neuro deficits Psych: Alert and oriented to person, place, time, and situation. Appropriate and pleasant affect. Assessment and Plan of Care: Left testicular pain and swelling, scrotal ultrasound concerning for left-sided epididymo-orchitis UTI, failed outpatient treatment -CT abdomen and pelvis revealing scrotal wall thickening with left-sided hydrocele reporting inflammatory process extended into the left inguinal canal with no evidence of drainable abscess reported. -Scrotal ultrasound concerning for left-sided orchitis. -Urine culture pending -Blood culture showing no growth after 24 hours -Continue IV antibiotics vancomycin and Zosyn pending culture results -Bladder management -Consult to urology, appreciate further recommendations. Acute kidney injury, improving with hydration -Likely secondary to reports of previous urinary retention, current infection, and dehydration. -Continue hydration with IV fluids -Hold nephrotoxic medications Bactrim and losartan -Continue close monitoring with repeat a.m. labs. Hyponatremia, improving -Continue hydration with IV fluids -Continue close monitoring with repeat a.m. labs. Anion gap metabolic acidosis of unclear etiology -Likely secondary to decreased oral intake/dehydration. -Continue hydration with IV fluid. -Continue close monitoring with repeat a.m. labs. Hypertension -Monitor vital signs, Cozaar held secondary to acute kidney injury. Type II jiu-udujatr-qqcbegoxy diabetes mellitus -Hold oral glycemic medications in place patient on glycemic protocol with NovoLog sliding scale. -Heart healthy and carb consistent diet. Glaucoma -Continue daily medication regimen CODE STATUS: Full code DVT prophylaxis: Heparin Discussed with: Patient and RN Anticipated discharge date: Clinical course to determine Anticipated discharge place: Home A total of 45 minutes was spent on the care of this complex patient more than 50% of the time was spent in counseling and care coordination. <Yumiko Chavarria - Last Filed: 03/03/21 15:11> Progress Note - Text Patient seen and examined independently. Patient was also seen by Kei Harding NP and case was discussed. I am in agreement with subjective, physical exam, assessment and plan as written above and amended below. He states that he does not want a Vu catheter. His pain is slightly improved from yesterday. Denies any nausea, vomiting, diarrhea. Patient will need a total of 10-14 days of IV antibiotics. We do not see significant improvement in 48 hours consider repeat ultrasound to rule out scrotal abscess. Urology is actively following. Monitor closely for increasing white blood cell count. General: non toxic, no distress, appears at stated age Derm: warm, dry Head: atraumatic, normocephalic, symmetric Eyes: EOMI, no lid lag, anicteric sclera Mouth: no lip lesion, mucus membranes moist Cardiovascular: S1S2 reg, no murmur, positive posterior tibial pulse bilateral, Lungs: CTA bilateral, no rhonchi, no rales , no accessory muscle use Abdominal: soft, nontender to palpation, no guarding, no appreciable organomegaly : Still with erythema, induration, and swelling and scrotal sac, some skin sloughing noted, no areas of necrotic tissue or purple discoloration noted. Ext: no gross muscle atrophy, no edema, no contractures Neuro: CN II-XI grossly intact, no focal neuro deficits Psych: Alert, oriented, appropriate affect
[2021-03-03 17:08] LABS: Glucose,Whole Blood 103 mg/dL (75-99)
[2021-03-03 20:05] LABS: Glucose,Whole Blood 139 mg/dL (75-99)
[2021-03-03] MEDS: LATANOPROST 0.005% OPHTH DROPS 2.5 ML BTL BOTH EYES SCH (21:34)
[2021-03-04 06:17] LABS: African American GFR (CKD) 55 (>60 ml/min/1.73 sqM); Non-African American GFR(CKD) 47 (>60 ml/min/1.73 sqM)
[2021-03-04] MEDS: SODIUM CHLORIDE 0.9% 1,000 ML IV SCH ×2 (06:27→09:10)
[2021-03-04] MEDS: VANCOMYCIN 1,750 MG in SODIUM CHLORIDE 0.9% 500 ML 500 ML IVPB SCH (06:29)
[2021-03-04 07:24] LABS: Glucose,Whole Blood 154 mg/dL (75-99)
[2021-03-04 08:08] LABS: HCT 35.3 % (39.0-53.0); HGB 11.2 gm/dL (13.0-17.5); MCH 31.4 pg (25.0-35.0); MCHC 31.6 g/dL (31.0-37.0); MCV 99.2 fL (80.0-100.0); Platelet Count 411 k/uL (150-450); RBC 3.56 m/uL (4.30-5.90); RDW 12.9 % (11.5-15.5); WBC 12.7 k/uL (3.8-10.6)
[2021-03-04 08:15] LABS: Anion Gap 7 mmol/L; Blood Urea Nitrogen 33 mg/dL (9-20); Calcium 8.1 mg/dL (8.4-10.2); Carbon Dioxide 18 mmol/L (22-30); Chloride 112 mmol/L (98-107); Glucose 161 mg/dL (74-99); Potassium 4.7 mmol/L (3.5-5.1); Sodium 137 mmol/L (137-145)
[2021-03-04] MEDS: INSULIN ASPART (NovoLOG) 100 UNIT/ML VIAL SQ SCH ×4 (09:09→21:25)
[2021-03-04] MEDS: PIPERACILLIN-TAZOBACTAM 3.375 GM in SODIUM CHLORIDE 0.9% 100 ML IVPB SCH ×3 (09:09→23:25)
[2021-03-04] MEDS: HEPARIN SODIUM,PORCINE/PF 5,000 UNIT/0.5 ML SYRINGE SQ SCH ×3 (09:10→23:25)
[2021-03-04] MEDS: TIMOLOL 0.5% OPHTH DROPS 5 ML BTL BOTH EYES SCH ×2 (09:12→21:26)
[2021-03-04] MEDS: BRIMONIDINE TARTRATE 0.2% DROPS 5 ML BTL BOTH EYES SCH ×2 (09:12→21:26)
[2021-03-04] MEDS: MORPHINE SULFATE 4 MG/ML SYRINGE IV PRN (09:14)
--- NOTE | 2021-03-04 10:34 | P.PN ---
Subjective Progress Note Date: 03/04/21 Principal diagnosis: Left epididymo-orchitis The patient continues to receive vancomycin and Zosyn. Urine and blood cultures are negative. He feels that his pain may be slightly improved. Objective - Vital Signs Vital signs: Vital Signs Temp 97.6 F 03/04/21 04:19 Pulse 71 03/04/21 04:19 Resp 18 03/04/21 04:19 BP 148/74 03/04/21 04:19 Pulse Ox 95 03/04/21 04:19 Intake & Output 03/03/21 03/04/21 03/04/21 18:59 06:59 18:59 Other: Voiding Method Urinal Urinal Urinal # Voids 1 - Constitutional General appearance: Present: average body habitus, no acute distress - Genitourinary Genitourinary Comment(s): The left testicle remains tender and enlarged. The right testicle is palpably normal. The left scrotal wall is edematous, and extending to the penis. There is no fluctuance or crepitus. - Labs CBC & Chem 7: 03/04/21 05:49 03/04/21 05:49 Labs: Abnormal Lab Results - Last 24 Hours (Table) 03/03/21 03/03/21 03/03/21 Range/Units 10:15 11:31 17:05 WBC (3.8-10.6) k/uL RBC (4.30-5.90) m/uL Hgb (13.0-17.5) gm/dL Hct (39.0-53.0) % Chloride (98-107) mmol/L Carbon Dioxide (22-30) mmol/L BUN (9-20) mg/dL Creatinine (0.66-1.25) mg/dL Glucose (74-99) mg/dL POC Glucose (mg/dL) 261 H 103 H (75-99) mg/dL Calcium (8.4-10.2) mg/dL Urine Opiates Screen Detected H (NotDetected) 03/03/21 03/04/21 03/04/21 Range/Units 20:03 05:49 05:49 WBC 12.7 H (3.8-10.6) k/uL RBC 3.56 L (4.30-5.90) m/uL Hgb 11.2 L (13.0-17.5) gm/dL Hct 35.3 L (39.0-53.0) % Chloride 112 H (98-107) mmol/L Carbon Dioxide 18 L (22-30) mmol/L BUN 33 H (9-20) mg/dL Creatinine 1.55 H (0.66-1.25) mg/dL Glucose 161 H (74-99) mg/dL POC Glucose (mg/dL) 139 H (75-99) mg/dL Calcium 8.1 L (8.4-10.2) mg/dL Urine Opiates Screen (NotDetected) 03/04/21 Range/Units 07:22 WBC (3.8-10.6) k/uL RBC (4.30-5.90) m/uL Hgb (13.0-17.5) gm/dL Hct (39.0-53.0) % Chloride (98-107) mmol/L Carbon Dioxide (22-30) mmol/L BUN (9-20) mg/dL Creatinine (0.66-1.25) mg/dL Glucose (74-99) mg/dL POC Glucose (mg/dL) 154 H (75-99) mg/dL Calcium (8.4-10.2) mg/dL Urine Opiates Screen (NotDetected) Microbiology - Last 24 Hours (Table) 03/02/21 07:30 Blood Culture - Preliminary Blood No Growth after 48 hours 03/02/21 07:30 Urine Culture - Final Urine,Voided 03/02/21 07:30 Blood Culture - Preliminary Blood No Growth after 24 hours Assessment and Plan Plan: The patient's epididymo-orchitis is stable to slightly improved. There is no indication for surgical intervention at this time. I am hopeful that he can be discharged home on oral antibiotics within the next couple of days. I would suggest that an oral antibiotic be chosen to which the Staph aureus was sensitive on the recent urine culture.
--- NOTE | 2021-03-04 11:39 | P.CONS ---
History of Present Illness - Reason for Consult Consult date: 03/04/21 - History of Present Illness This is a 61-year-old patient known to the wound care center who sees Dr. Lopez. Being seen on [address] for nonhealing ulcerations to the left plantar foot. The wound is currently classified as a Grade 2 wound with etiology of Diabetic Wound/Ulcer of the Lower Extremity and is located on the Left,Plantar Foot. The wound measures 1.1cm length x 1.4cm width x 0.1cm depth; 1.21cm^2 area and 0.121cm^3 volume. The wound is limited to skin breakdown. There is no tunneling or undermining noted. There is a medium amount of serous drainage noted. The wound margin is distinct with the outline attached to the wound base. There is large (67-100%) pink granulation within the wound bed. There is a small (1-33%) amount of necrotic tissue within the wound bed including Adherent Slough. The periwound skin appearance exhibited: Scarring. The periwound skin appearance did not exhibit: Callus, Crepitus, Excoriation, Induration, Rash, Dry/Scaly, Maceration, Atrophie [place], Cyanosis, Ecchymosis, Hemosiderin Staining, Mottled, Pallor, Rubor, Erythema. Periwound temperature was noted as No Abnormality. Review Of Systems: Constitutional: No fever, no chills, no night sweats. No weight change. No weakness, fatigue or lethargy. No daytime sleepiness. Integumentary:reports wounds, no lesions. No rash or pruritus. No unusual bruising. No change in hair or nails. Physical exam: General Appearance: Alert, cooperative, no distress, appears stated age. Skin: See HPI all other Skin color, texture, tugor normal, no rashes or lesions. Neurologic: Alert oriented x3 Assessment: 1. Type 2 diabetes with foot ulcer 2. 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 Apply theraHoney, dry gauze, thin rolled gauze, and secure with tape. Change Monday. Minimal weightbearing utilize diabetic shoes. 2. Next wound appointment is March 15 at 1:30 Thank you for the consultation any questions please contact the wound care center DNP note has been reviewed and discussed with Dr. Burks and the impression and plan of care has been directed as dictated. Past Medical History Past Medical History: Diabetes Mellitus, Hypertension History of Any Multi-Drug Resistant Organisms: None Reported Past Surgical History: Cholecystectomy Additional Past Surgical History / Comment(s): march 2018 left 5th toe amputation. Past Anesthesia/Blood Transfusion Reactions: No Reported Reaction Past Psychological History: No Psychological Hx Reported Smoking Status: Never smoker Past Alcohol Use History: None Reported Past Drug Use History: None Reported - Past Family History Father Family Medical History: AFIB, Hypertension Mother Family Medical History: Rheumatoid Arthritis (RA) Medications and Allergies Home Medications Medication Instructions Recorded Confirmed Type glipiZIDE [Glucotrol] 5 mg PO AC-BID 04/02/18 03/02/21 History Brimonidine Tartrate/Timolol 1 drop BOTH EYES BID 02/26/21 03/02/21 History [Combigan 0.2%-0.5% Eye Drops] Latanoprost [Xalatan 0.005%] 1 drop BOTH EYES HS 02/26/21 03/02/21 History Losartan Potassium 50 mg PO DAILY 02/26/21 03/02/21 History metFORMIN HCL [Glucophage] 1,000 mg PO BID 02/26/21 03/02/21 History Sulfamethox-Tmp 800-160Mg [Bactrim 1 tab PO Q12HR 03/02/21 03/02/21 History Ds] Allergies Allergy/AdvReac Type Severity Reaction Status Date / Time No Known Allergies Allergy Verified 03/02/21 09:05 Physical Exam Vitals: Vital Signs Temp Pulse Resp BP Pulse Ox 03/04/21 04:19 97.6 F 71 18 148/74 95 03/03/21 20:15 97.5 F L 79 18 144/69 95 Intake and Output 03/03/21 03/04/21 03/04/21 22:59 06:59 14:59 Other: Voiding Method Urinal Urinal # Voids 1 Results CBC & Chem 7: 03/04/21 05:49 03/04/21 05:49 Labs: Abnormal Lab Results - Last 24 Hours (Table) 03/03/21 03/03/21 03/04/21 Range/Units 17:05 20:03 05:49 WBC (3.8-10.6) k/uL RBC (4.30-5.90) m/uL Hgb (13.0-17.5) gm/dL Hct (39.0-53.0) % Chloride 112 H (98-107) mmol/L Carbon Dioxide 18 L (22-30) mmol/L BUN 33 H (9-20) mg/dL Creatinine 1.55 H (0.66-1.25) mg/dL Glucose 161 H (74-99) mg/dL POC Glucose (mg/dL) 103 H 139 H (75-99) mg/dL Calcium 8.1 L (8.4-10.2) mg/dL 03/04/21 03/04/21 Range/Units 05:49 07:22 WBC 12.7 H (3.8-10.6) k/uL RBC 3.56 L (4.30-5.90) m/uL Hgb 11.2 L (13.0-17.5) gm/dL Hct 35.3 L (39.0-53.0) % Chloride (98-107) mmol/L Carbon Dioxide (22-30) mmol/L BUN (9-20) mg/dL Creatinine (0.66-1.25) mg/dL Glucose (74-99) mg/dL POC Glucose (mg/dL) 154 H (75-99) mg/dL Calcium (8.4-10.2) mg/dL Microbiology - Last 24 Hours (Table) 03/02/21 07:30 Blood Culture - Preliminary Blood No Growth after 48 hours 03/02/21 07:30 Urine Culture - Final Urine,Voided 03/02/21 07:30 Blood Culture - Preliminary Blood No Growth after 24 hours Assessment and Plan (1) Diabetic foot ulcer Current Visit: Yes Status: Acute Code(s): E11.621 - TYPE 2 DIABETES MELLITUS WITH FOOT ULCER; L97.509 - NON-PRESSURE CHRONIC ULCER OTH PRT UNSP FOOT W UNSP SEVERITY SNOMED Code(s): 710288481 (2) Non-pressure chronic ulcer of other part of left foot with fat layer exposed Current Visit: Yes Status: Acute Code(s): L97.522 - NON-PRS CHRONIC ULCER OTH PRT LEFT FOOT W FAT LAYER EXPOSED SNOMED Code(s): 156819275
[2021-03-04 12:20] LABS: Glucose,Whole Blood 155 mg/dL (75-99)
--- NOTE | 2021-03-04 15:22 | P.PN ---
<Kei Harding - Last Filed: 03/04/21 15:14> Subjective Progress Note Date: 03/04/21 Hospital course: Patient is a 61-year-old male with a past medical history of hypertension and type II zdn-rpmlblx-fqsyekegv diabetes mellitus. Patient reports that he was recently diagnosed with a UTI on 02/26/21 after presenting to the emergency department with the chief complaint of difficulties with urination and was discharged home on Bactrim 8001 60 mg every 12 hours 10 days. Patient reports he has been taking antibiotic as prescribed but states that evening he began noticing testicular pain and swelling. Patient reports this pain and swelling significantly increased throughout the weekend and states he came to the emergency department today because he could no longer tolerate the pain he was in. Patient was seen and fully evaluated in the emergency department. CT abdomen and pelvis revealing scrotal wall thickening with left-sided hydrocele reporting inflammatory process extended into the left inguinal canal with no evidence of drainable abscess reported. Scrotal ultrasound concerning for left- sided orchitis. Lactate normal findings at 1.7. CRP was elevated at 32.7 and patient positive for leukocytosis with WBC count of 16.9. AK with BUN 60, creatinine 2.54, and GFR of 26. Urinalysis was positive for infection. Patient started on IV antibiotics vancomycin and Zosyn. Patient admitted under our services with consultation to urology. 03/03/21: Patient was seen and fully evaluated at the bedside this morning. He reports continued testicular swelling and pain. Upon assessment testicular swelling shows slight improvement however significant erythema and reports of tenderness to touch remains. Patient reports that he continues to urinate without any difficulties and denies having any dysuria or hematuria. 03/04/21: Patient was seen and fully evaluated at the bedside again this morning. Testicular swelling appears to be lightly improved however significant erythema and reports of tenderness remains. Patient reports pain is similar to the pain he felt upon arrival and states pain medication does help. Patient denies worsening of these symptoms. He continues to deny having any hematuria or dysuria and denies having any chills, diaphoresis, abdominal pain, suprapubic pain or pressure, nausea, vomiting, or any other concerns at this time. WBC count decreasing daily. Currently 12.7 from initial 16.9. Physical exam: Vital signs reviewed and stable. General: Nontoxic, no distress and appears stated age. Derm: Skin warm and dry, normal coloration for ethnicity. Head: Atraumatic, normocephalic and symmetric. Eyes: EOMs intact, no lid lag, and anicteric sclera Mouth: no lip lesions, mucus membranes moist Cardiovascular: regular rate and rhythm with normal S1S2, no murmur, positive posterior tibial pulses bilaterally, and cap refill < 2 seconds. Lungs: Respirations even, regular, and unlabored on room air. Lungs CTA bilaterally, no rhonchi, no rales, no wheezing, and no accessory muscle usage. GI/: Abdomen soft, nontender to palpation, no guarding, no appreciable organomegaly. Significant left testicular swelling and erythema with increased warmth. Patient reports significantly painful to touch. Slight decrease in swelling Ext: ROM intact. No gross muscle atrophy, no edema, no contractures Neuro: Speech clear, face symmetrical and CN II-XII grossly intact with no noted focal neuro deficits Psych: Alert and oriented to person, place, time, and situation. Appropriate and pleasant affect. Assessment and Plan of Care: Left testicular pain and swelling, scrotal ultrasound concerning for left-sided epididymo-orchitis UTI, failed outpatient treatment -CT abdomen and pelvis revealing scrotal wall thickening with left-sided hydrocele reporting inflammatory process extended into the left inguinal canal with no evidence of drainable abscess reported. -Scrotal ultrasound concerning for left-sided orchitis. -Urine culture pending -Blood culture showing no growth after 24 hours -Continue IV antibiotics vancomycin and Zosyn pending culture results -Bladder management -Consult to urology, appreciate further recommendations. Acute kidney injury, improving with hydration -Likely secondary to reports of previous urinary retention, current infection, and dehydration. -Hold nephrotoxic medications Bactrim and losartan -Continue close monitoring with repeat a.m. labs. Hyponatremia, resolved -Continue hydration with IV fluids -Continue close monitoring with repeat a.m. labs. Anion gap metabolic acidosis of unclear etiology -Fluid hydration showing no improvement, fluids discontinued at this time. -Continue close monitoring with repeat a.m. labs. Hypertension -Monitor vital signs, Cozaar held secondary to acute kidney injury. Type II uhn-mppcbgc-kneaxwahz diabetes mellitus -Hold oral glycemic medications in place patient on glycemic protocol with NovoLog sliding scale. -Heart healthy and carb consistent diet. Glaucoma -Continue daily medication regimen CODE STATUS: Full code DVT prophylaxis: Heparin Discussed with: Patient and RN Anticipated discharge date: Clinical course to determine Anticipated discharge place: Home A total of 45 minutes was spent on the care of this complex patient more than 50% of the time was spent in counseling and care coordination. Objective - Vital Signs Vital signs: Vital Signs Temp 97.6 F 03/04/21 04:19 Pulse 71 03/04/21 04:19 Resp 18 03/04/21 04:19 BP 148/74 03/04/21 04:19 Pulse Ox 95 03/04/21 04:19 Intake & Output 03/03/21 03/04/21 03/04/21 18:59 06:59 18:59 Other: Voiding Method Urinal Urinal # Voids 1 - Labs CBC & Chem 7: 03/04/21 05:49 03/04/21 05:49 Labs: Abnormal Lab Results - Last 24 Hours (Table) 03/03/21 03/03/21 03/03/21 Range/Units 10:15 11:31 17:05 WBC (3.8-10.6) k/uL RBC (4.30-5.90) m/uL Hgb (13.0-17.5) gm/dL Hct (39.0-53.0) % Chloride (98-107) mmol/L Carbon Dioxide (22-30) mmol/L BUN (9-20) mg/dL Creatinine (0.66-1.25) mg/dL Glucose (74-99) mg/dL POC Glucose (mg/dL) 261 H 103 H (75-99) mg/dL Calcium (8.4-10.2) mg/dL Urine Opiates Screen Detected H (NotDetected) 03/03/21 03/04/21 03/04/21 Range/Units 20:03 05:49 05:49 WBC 12.7 H (3.8-10.6) k/uL RBC 3.56 L (4.30-5.90) m/uL Hgb 11.2 L (13.0-17.5) gm/dL Hct 35.3 L (39.0-53.0) % Chloride 112 H (98-107) mmol/L Carbon Dioxide 18 L (22-30) mmol/L BUN 33 H (9-20) mg/dL Creatinine 1.55 H (0.66-1.25) mg/dL Glucose 161 H (74-99) mg/dL POC Glucose (mg/dL) 139 H (75-99) mg/dL Calcium 8.1 L (8.4-10.2) mg/dL Urine Opiates Screen (NotDetected) 03/04/21 Range/Units 07:22 WBC (3.8-10.6) k/uL RBC (4.30-5.90) m/uL Hgb (13.0-17.5) gm/dL Hct (39.0-53.0) % Chloride (98-107) mmol/L Carbon Dioxide (22-30) mmol/L BUN (9-20) mg/dL Creatinine (0.66-1.25) mg/dL Glucose (74-99) mg/dL POC Glucose (mg/dL) 154 H (75-99) mg/dL Calcium (8.4-10.2) mg/dL Urine Opiates Screen (NotDetected) Microbiology - Last 24 Hours (Table) 03/02/21 07:30 Urine Culture - Final Urine,Voided 03/02/21 07:30 Blood Culture - Preliminary Blood No Growth after 24 hours 03/02/21 07:30 Blood Culture - Preliminary Blood No Growth after 24 hours <Yumiko Chavarria - Last Filed: 03/04/21 18:51> Subjective Patient seen and examined independently. Patient was also seen by Kei Harding NP and case was discussed. I am in agreement with subjective, physical exam, assessment and plan as written above and amended below. Overall pain is better. Denies any nausea, vomiting, diarrhea. General: non toxic, no distress, appears at stated age Derm: warm, dry Head: atraumatic, normocephalic, symmetric Eyes: EOMI, no lid lag, anicteric sclera Mouth: no lip lesion, mucus membranes moist Cardiovascular: S1S2 reg, no murmur, positive posterior tibial pulse bilateral, Lungs: CTA bilateral, no rhonchi, no rales , no accessory muscle use Abdominal: soft, nontender to palpation, no guarding, no appreciable organomegaly Genitourinary: Scrotal area appears less edematous, still with significant swelling left testicle, erythema Ext: no gross muscle atrophy, no edema, no contractures Neuro: CN II-XI grossly intact, no focal neuro deficits Psych: Alert, oriented, appropriate affect Objective - Vital Signs Vital signs: Vital Signs Temp 97.5 F L 03/04/21 16:00 Pulse 78 03/04/21 16:00 Resp 16 03/04/21 16:00 BP 149/77 03/04/21 16:00 Pulse Ox 98 03/04/21 16:00 Intake & Output 03/03/21 03/04/21 03/04/21 18:59 06:59 18:59 Other: Voiding Method Urinal Urinal Toilet # Voids 1 1 - Labs CBC & Chem 7: 03/04/21 05:49 03/04/21 05:49 Labs: Abnormal Lab Results - Last 24 Hours (Table) 03/03/21 03/04/21 03/04/21 Range/Units 20:03 05:49 05:49 WBC 12.7 H (3.8-10.6) k/uL RBC 3.56 L (4.30-5.90) m/uL Hgb 11.2 L (13.0-17.5) gm/dL Hct 35.3 L (39.0-53.0) % Chloride 112 H (98-107) mmol/L Carbon Dioxide 18 L (22-30) mmol/L BUN 33 H (9-20) mg/dL Creatinine 1.55 H (0.66-1.25) mg/dL Glucose 161 H (74-99) mg/dL POC Glucose (mg/dL) 139 H (75-99) mg/dL Calcium 8.1 L (8.4-10.2) mg/dL 03/04/21 03/04/21 03/04/21 Range/Units 07:22 12:05 17:14 WBC (3.8-10.6) k/uL RBC (4.30-5.90) m/uL Hgb (13.0-17.5) gm/dL Hct (39.0-53.0) % Chloride (98-107) mmol/L Carbon Dioxide (22-30) mmol/L BUN (9-20) mg/dL Creatinine (0.66-1.25) mg/dL Glucose (74-99) mg/dL POC Glucose (mg/dL) 154 H 155 H 266 H (75-99) mg/dL Calcium (8.4-10.2) mg/dL Microbiology - Last 24 Hours (Table) 03/02/21 07:30 Blood Culture - Preliminary Blood No Growth after 48 hours 03/02/21 07:30 Blood Culture - Preliminary Blood No Growth after 48 hours 03/02/21 07:30 Urine Culture - Final Urine,Voided
[2021-03-04 17:15] LABS: Glucose,Whole Blood 266 mg/dL (75-99)
[2021-03-04] MEDS ORDERED: VANCOMYCIN TROUGH DUE 1 EACH MISC MISCELLANE ONE (21:00)
[2021-03-04 21:06] LABS: Glucose,Whole Blood 198 mg/dL (75-99)
[2021-03-04] MEDS: LATANOPROST 0.005% OPHTH DROPS 2.5 ML BTL BOTH EYES SCH (21:26)
[2021-03-04] MEDS ORDERED: VANCOMYCIN 1,750 MG in SODIUM CHLORIDE 0.9% 500 ML 500 ML IVPB SCH (22:00)
[2021-03-05] MEDS: MORPHINE SULFATE 4 MG/ML SYRINGE IV PRN (01:22)
[2021-03-05 06:15] LABS: HCT 34.8 % (39.0-53.0); HGB 10.9 gm/dL (13.0-17.5); Hypochromasia Slight; MCH 31.5 pg (25.0-35.0); MCHC 31.4 g/dL (31.0-37.0); MCV 100.2 fL (80.0-100.0); Mean Platelet Volume 7.7; Platelet Count 409 k/uL (150-450); RBC 3.47 m/uL (4.30-5.90); RDW 12.4 % (11.5-15.5); WBC 12.7 k/uL (3.8-10.6)
[2021-03-05 06:40] LABS: African American GFR (CKD) 61 (>60 ml/min/1.73 sqM); Anion Gap 8 mmol/L; Blood Urea Nitrogen 24 mg/dL (9-20); Calcium 8.2 mg/dL (8.4-10.2); Carbon Dioxide 19 mmol/L (22-30); Chloride 110 mmol/L (98-107); Glucose 123 mg/dL (74-99); Non-African American GFR(CKD) 52 (>60 ml/min/1.73 sqM); Sodium 137 mmol/L (137-145)
[2021-03-05 06:47] LABS: Glucose,Whole Blood 110 mg/dL (75-99)
[2021-03-05] MEDS: INSULIN ASPART (NovoLOG) 100 UNIT/ML VIAL SQ SCH ×4 (08:02→21:41)
[2021-03-05] MEDS: PIPERACILLIN-TAZOBACTAM 3.375 GM in SODIUM CHLORIDE 0.9% 100 ML IVPB SCH (08:12)
[2021-03-05] MEDS: HEPARIN SODIUM,PORCINE/PF 5,000 UNIT/0.5 ML SYRINGE SQ SCH ×2 (08:12→16:57)
--- NOTE | 2021-03-05 08:12 | P.PN ---
Subjective Progress Note Date: 03/05/21 Principal diagnosis: Left epididymo-orchitis The patient continues to receive vancomycin and Zosyn. Urine and blood cultures are negative. He is a vague historian but believes that his pain is improved. Objective - Vital Signs Vital signs: Vital Signs Temp 97.9 F 03/05/21 05:15 Pulse 91 03/05/21 05:15 Resp 20 03/05/21 05:15 BP 159/73 03/05/21 05:15 Pulse Ox 95 03/05/21 05:15 Intake & Output 03/04/21 03/05/21 03/05/21 18:59 06:59 18:59 Other: Voiding Method Toilet Toilet # Voids 1 - Constitutional General appearance: Present: average body habitus, cooperative, no acute distress - Genitourinary Genitourinary Comment(s): The left testicle remains enlarged and tender, though somewhat less tender to palpation. There is no evidence of fluctuance or crepitus. The left scrotal wall edema may be slightly diminished. - Labs CBC & Chem 7: 03/05/21 04:51 03/05/21 04:51 Labs: Abnormal Lab Results - Last 24 Hours (Table) 03/04/21 03/04/21 03/04/21 Range/Units 05:49 12:05 17:14 WBC (3.8-10.6) k/uL RBC (4.30-5.90) m/uL Hgb (13.0-17.5) gm/dL Hct (39.0-53.0) % MCV (80.0-100.0) fL Chloride 112 H (98-107) mmol/L Carbon Dioxide 18 L (22-30) mmol/L BUN 33 H (9-20) mg/dL Creatinine (0.66-1.25) mg/dL Glucose 161 H (74-99) mg/dL POC Glucose (mg/dL) 155 H 266 H (75-99) mg/dL Calcium 8.1 L (8.4-10.2) mg/dL 03/04/21 03/05/21 03/05/21 Range/Units 21:04 04:51 04:51 WBC 12.7 H (3.8-10.6) k/uL RBC 3.47 L (4.30-5.90) m/uL Hgb 10.9 L (13.0-17.5) gm/dL Hct 34.8 L (39.0-53.0) % MCV 100.2 H (80.0-100.0) fL Chloride 110 H (98-107) mmol/L Carbon Dioxide 19 L (22-30) mmol/L BUN 24 H (9-20) mg/dL Creatinine 1.43 H (0.66-1.25) mg/dL Glucose 123 H (74-99) mg/dL POC Glucose (mg/dL) 198 H (75-99) mg/dL Calcium 8.2 L (8.4-10.2) mg/dL 03/05/21 Range/Units 06:47 WBC (3.8-10.6) k/uL RBC (4.30-5.90) m/uL Hgb (13.0-17.5) gm/dL Hct (39.0-53.0) % MCV (80.0-100.0) fL Chloride (98-107) mmol/L Carbon Dioxide (22-30) mmol/L BUN (9-20) mg/dL Creatinine (0.66-1.25) mg/dL Glucose (74-99) mg/dL POC Glucose (mg/dL) 110 H (75-99) mg/dL Calcium (8.4-10.2) mg/dL Microbiology - Last 24 Hours (Table) 03/02/21 07:30 Blood Culture - Preliminary Blood No Growth after 48 hours 03/02/21 07:30 Blood Culture - Preliminary Blood No Growth after 48 hours Assessment and Plan Plan: The patient's epididymo-orchitis is stable to slightly improved. There is no indication for surgical intervention at this time. I am hopeful that he can be discharged home on oral antibiotics within the next couple of days. I would suggest that an oral antibiotic be chosen to which the Staph aureus was sens itive on the recent urine culture.
[2021-03-05] MEDS: BRIMONIDINE TARTRATE 0.2% DROPS 5 ML BTL BOTH EYES SCH ×2 (08:24→20:08)
[2021-03-05] MEDS: TIMOLOL 0.5% OPHTH DROPS 5 ML BTL BOTH EYES SCH ×2 (08:24→20:08)
--- NOTE | 2021-03-05 11:11 | P.PN ---
<Kei Harding - Last Filed: 03/05/21 17:41> Subjective Progress Note Date: 03/05/21 Hospital course: Patient is a 61-year-old male with a past medical history of hypertension and type II zdz-njyaljb-jnbuuvgrw diabetes mellitus. Patient reports that he was recently diagnosed with a UTI on 02/26/21 after presenting to the emergency department with the chief complaint of difficulties with urination and was discharged home on Bactrim 8001 60 mg every 12 hours 10 days. Patient reports he has been taking antibiotic as prescribed but states that evening he began noticing testicular pain and swelling. Patient reports this pain and swelling significantly increased throughout the weekend and states he came to the emergency department today because he could no longer tolerate the pain he was in. Patient was seen and fully evaluated in the emergency department. CT abdomen and pelvis revealing scrotal wall thickening with left-sided hydrocele reporting inflammatory process extended into the left inguinal canal with no evidence of drainable abscess reported. Scrotal ultrasound concerning for left- sided orchitis. Lactate normal findings at 1.7. CRP was elevated at 32.7 and patient positive for leukocytosis with WBC count of 16.9. AK with BUN 60, creatinine 2.54, and GFR of 26. Urinalysis was positive for infection. Patient started on IV antibiotics vancomycin and Zosyn. Patient admitted under our services with consultation to urology. 03/03/21: Patient was seen and fully evaluated at the bedside this morning. He reports continued testicular swelling and pain. Upon assessment testicular swelling shows slight improvement however significant erythema and reports of tenderness to touch remains. Patient reports that he continues to urinate without any difficulties and denies having any dysuria or hematuria. 03/04/21: Patient was seen and fully evaluated at the bedside again this morning. Testicular swelling appears to be lightly improved however significant erythema and reports of tenderness remains. Patient reports pain is similar to the pain he felt upon arrival and states pain medication does help. Patient denies worsening of these symptoms. He continues to deny having any hematuria or dysuria and denies having any chills, diaphoresis, abdominal pain, suprapubic pain or pressure, nausea, vomiting, or any other concerns at this time. WBC count decreasing daily. Currently 12.7 from initial 16.9. 03/05/21: Patient was seen and fully evaluated at the bedside. Testicular swelling remains unchanged with persistent significant erythema. Patient states pain remains the same and unchanged from yesterday. Blood culture showing no growth after 72 hours and urine culture is negative. Secondary to be very slow to no improvement in epididymoorchitis, consult placed to infectious disease for further evaluation. Vital signs remained stable. Patient remains afebrile and leukocytosis continues to improve. Patient denies having any headache, lightheadedness, dizziness, chest pain, palpitations, shortness of breath, abdominal pain or suprapubic pain, dysuria, urinary retention, frequency, or urgency. Physical exam: Vital signs reviewed and stable. General: Nontoxic, no distress and appears stated age. Derm: Skin warm and dry, normal coloration for ethnicity. Head: Atraumatic, normocephalic and symmetric. Eyes: EOMs intact, no lid lag, and anicteric sclera Mouth: no lip lesions, mucus membranes moist Cardiovascular: regular rate and rhythm with normal S1S2, no murmur, positive posterior tibial pulses bilaterally, and cap refill < 2 seconds. Lungs: Respirations even, regular, and unlabored on room air. Lungs CTA bilaterally, no rhonchi, no rales, no wheezing, and no accessory muscle usage. GI/: Abdomen soft, nontender to palpation, no guarding, no appreciable organomegaly. Significant left testicular swelling and erythema with increased warmth. Patient reports significantly painful to touch. Slight decrease in swelling Ext: ROM intact. No gross muscle atrophy, no edema, no contractures Neuro: Speech clear, face symmetrical and CN II-XII grossly intact with no noted focal neuro deficits Psych: Alert and oriented to person, place, time, and situation. Appropriate and pleasant affect. Assessment and Plan of Care: Left testicular pain and swelling, scrotal ultrasound concerning for left-sided epididymo-orchitis UTI, failed outpatient treatment -CT abdomen and pelvis revealing scrotal wall thickening with left-sided hydrocele reporting inflammatory process extended into the left inguinal canal with no evidence of drainable abscess reported. -Scrotal ultrasound concerning for left-sided orchitis. -Urine culture negative -Blood culture showing no growth after 72 hours -Infectious disease consulted secondary to little to no improvement after 4 day course of vancomycin and Zosyn, Dr. Manriquez changed antibiotics to Unasyn at this time. -Continue Bladder management -Urology following Acute kidney injury, improving with hydration -Likely secondary to reports of previous urinary retention, current infection, and dehydration. -Hold nephrotoxic medications Bactrim and losartan -Continue close monitoring with repeat a.m. labs. Hyponatremia, resolved -Continue hydration with IV fluids. -Continue close monitoring with repeat a.m. labs. Anion gap metabolic acidosis of unclear etiology -Fluid hydration showing no improvement, fluids discontinued at this time. -Continue close monitoring with repeat a.m. labs. Hypertension -Monitor vital signs, Cozaar held secondary to acute kidney injury. Type II qdm-zkjihln-egatepikw diabetes mellitus -Hold oral glycemic medications in place patient on glycemic protocol with NovoLog sliding scale. -Heart healthy and carb consistent diet. Glaucoma -Continue daily medication regimen CODE STATUS: Full code DVT prophylaxis: Heparin Discussed with: Patient and RN Anticipated discharge date: Clinical course to determine Anticipated discharge place: Home A total of 45 minutes was spent on the care of this complex patient more than 50% of the time was spent in counseling and care coordination. Objective - Vital Signs Vital signs: Vital Signs Temp 97.9 F 03/05/21 05:15 Pulse 91 03/05/21 05:15 Resp 20 03/05/21 05:15 BP 159/73 03/05/21 05:15 Pulse Ox 95 03/05/21 05:15 Intake & Output 03/04/21 03/05/21 03/05/21 18:59 06:59 18:59 Other: Voiding Method Toilet Toilet # Voids 1 - Labs CBC & Chem 7: 03/05/21 04:51 03/05/21 04:51 Labs: Abnormal Lab Results - Last 24 Hours (Table) 03/04/21 03/04/21 03/04/21 Range/Units 12:05 17:14 21:04 WBC (3.8-10.6) k/uL RBC (4.30-5.90) m/uL Hgb (13.0-17.5) gm/dL Hct (39.0-53.0) % MCV (80.0-100.0) fL Chloride (98-107) mmol/L Carbon Dioxide (22-30) mmol/L BUN (9-20) mg/dL Creatinine (0.66-1.25) mg/dL Glucose (74-99) mg/dL POC Glucose (mg/dL) 155 H 266 H 198 H (75-99) mg/dL Calcium (8.4-10.2) mg/dL 03/05/21 03/05/21 03/05/21 Range/Units 04:51 04:51 06:47 WBC 12.7 H (3.8-10.6) k/uL RBC 3.47 L (4.30-5.90) m/uL Hgb 10.9 L (13.0-17.5) gm/dL Hct 34.8 L (39.0-53.0) % MCV 100.2 H (80.0-100.0) fL Chloride 110 H (98-107) mmol/L Carbon Dioxide 19 L (22-30) mmol/L BUN 24 H (9-20) mg/dL Creatinine 1.43 H (0.66-1.25) mg/dL Glucose 123 H (74-99) mg/dL POC Glucose (mg/dL) 110 H (75-99) mg/dL Calcium 8.2 L (8.4-10.2) mg/dL Microbiology - Last 24 Hours (Table) 03/02/21 07:30 Blood Culture - Preliminary Blood No Growth after 72 hours 03/02/21 07:30 Blood Culture - Preliminary Blood No Growth after 48 hours <Yumiko Chavarria - Last Filed: 03/05/21 18:54> Subjective Patient seen and examined independently. Patient was also seen by Kei Harding NP and case was discussed. I am in agreement with subjective, physical exam, assessment and plan as written above and amended below. Patient states his pain is somewhat better than yesterday, he does not want me to examine him. He denies any nausea, vomiting, diarrhea. He complains that we always at inappropriate times. General: non toxic, no distress, appears at stated age Derm: warm, dry Head: atraumatic, normocephalic, symmetric Eyes: EOMI, no lid lag, anicteric sclera Mouth: no lip lesion, mucus membranes moist Cardiovascular: S1S2 reg, no murmur, positive posterior tibial pulse bilateral, Lungs: Decreased breath sounds bilateral, no rhonchi, no rales , no accessory muscle use Neuro: CN II-XI grossly intact, no focal neuro deficits Psych: Alert, oriented, appropriate affect Objective - Vital Signs Vital signs: Vital Signs Temp 97.5 F L 03/05/21 12:37 Pulse 65 03/05/21 12:37 Resp 20 03/05/21 12:37 BP 157/84 03/05/21 12:37 Pulse Ox 97 03/05/21 12:37 Intake & Output 03/04/21 03/05/21 03/05/21 18:59 06:59 18:59 Intake Total 240 Balance 240 Intake: Oral 240 Other: Voiding Method Toilet Toilet Toilet # Voids 1 - Labs CBC & Chem 7: 03/05/21 04:51 03/05/21 04:51 Labs: Abnormal Lab Results - Last 24 Hours (Table) 03/04/21 03/05/21 03/05/21 Range/Units 21:04 04:51 04:51 WBC 12.7 H (3.8-10.6) k/uL RBC 3.47 L (4.30-5.90) m/uL Hgb 10.9 L (13.0-17.5) gm/dL Hct 34.8 L (39.0-53.0) % MCV 100.2 H (80.0-100.0) fL Chloride 110 H (98-107) mmol/L Carbon Dioxide 19 L (22-30) mmol/L BUN 24 H (9-20) mg/dL Creatinine 1.43 H (0.66-1.25) mg/dL Glucose 123 H (74-99) mg/dL POC Glucose (mg/dL) 198 H (75-99) mg/dL Calcium 8.2 L (8.4-10.2) mg/dL 03/05/21 03/05/21 03/05/21 Range/Units 06:47 11:57 17:05 WBC (3.8-10.6) k/uL RBC (4.30-5.90) m/uL Hgb (13.0-17.5) gm/dL Hct (39.0-53.0) % MCV (80.0-100.0) fL Chloride (98-107) mmol/L Carbon Dioxide (22-30) mmol/L BUN (9-20) mg/dL Creatinine (0.66-1.25) mg/dL Glucose (74-99) mg/dL POC Glucose (mg/dL) 110 H 176 H 276 H (75-99) mg/dL Calcium (8.4-10.2) mg/dL Microbiology - Last 24 Hours (Table) 03/02/21 07:30 Blood Culture - Preliminary Blood No Growth after 72 hours 03/02/21 07:30 Blood Culture - Preliminary Blood No Growth after 72 hours
[2021-03-05 12:00] LABS: Glucose,Whole Blood 176 mg/dL (75-99)
[2021-03-05] MEDS: AMPICILLIN-SULBACTAM 3 GM in SODIUM CHLORIDE 0.9% 100 ML IVPB SCH ×2 (12:14→17:00)
[2021-03-05 17:07] LABS: Glucose,Whole Blood 276 mg/dL (75-99)
[2021-03-05] MEDS: LATANOPROST 0.005% OPHTH DROPS 2.5 ML BTL BOTH EYES SCH (20:08)
[2021-03-05 21:33] LABS: Glucose,Whole Blood 250 mg/dL (75-99)
--- NOTE | 2021-03-05 22:45 | P.CONS ---
History of Present Illness - Reason for Consult Consult date: 03/05/21 epididmorchitis/scrotal cellulits Requesting physician: Kei Harding - Chief Complaint left scrotal pain x days - History of Present Illness History of present illness : Patient is 61-year-old male presenting to the ER 4 days ago for evaluation of left testicular swelling there was going on for 2 days before presentation to the hospital patient denies having history of any trauma patient was recently evaluated in this ER the patient did have a problem with difficulty to urinate did have a catheter and was treated for UTI however the patient subsequently presented hospital with her left testicular pain describing more of a throbbing almost 6-7 out of 10 and worse with touching patient recommend open wound or any drainage on presentation to the hospital pat ient was afebrile and did not have any fever the last 3 to 4 days patient did have a white count of 16.9 which is down to 12.7 patient did have a elevated creatinine 2.54 did have a positive UA james PCR was negative culture this admission so far negative urine culture done on the was MSSA patient has been treated with the vancomycin and Zosyn infectious disease was consulted today for further management of antibiotic therapy patient did have a scrotal ultrasound done on left testicle appears heterogeneous edema visualized no varicocele or hydrocele patient also have a CT of abdominal pelvis scrotal wall thickening with left-sided hydrocele inflammatory process extends into the left inguinal canal no evidence of drainable abscess patient has been evaluated by urology and no plan for any surgical intervention Review of system: CONSTITUTIONAL: Positive for weakness however denies high-grade fever. EYES: No complaint. ENT: No complaint. RESPIRATORY: No complaint. CARDIOVASCULAR: No complaint. GENITOURINARY: As per history of present illness. GASTROINTESTINAL: No complaint. MUSCULOSKELETAL: No complaint. INTEGUMENTARY: No complaint. PSYCHOLOGIC: No complaint. ENDOCRINE: No complaint. NEUROLOGIC: No complaint. Past medical history : Reviewed, documented below Past surgical history : Reviewed, documented below Social history: Reviewed, documented below Medications: Reviewed, as documented below GENERAL DESCRIPTION: Middle-aged male lying in bed, no distress. No tachypnea or accessory muscle of respiration use. HEENT: Shows Pallor , no scleral icterus. Oral mucous membrane is dry. NECK: Trachea central, no thyromegaly. LUNGS: Unlabored breathing. Clear to auscultation anteriorly. No wheeze or crackle. HEART: S1, S2, regular rate and rhythm. ABDOMEN: Soft, no tenderness , guarding or rigidity : Patient did have mild lateral testicular swelling and redness with left testicular more swollen and tender stretch EXTREMITIES: No edema of feet. SKIN: No rash, no masses palpable. NEUROLOGICAL: The patient is awake, alert, oriented x3, mood and affect normal. LABS AND RADIOLOGY: Reviewed results see below Assessment : Patient with left scrotal cellulitis with concern for possible epididymitis in this patient with recently treated for urinary retention and UTI and urine culture positive for MSSA patient not sure what antibiotic he was giv en bloody urine culture has been negative this admission and will need to target MSSA to the likely pathogen Plan: 1-discontinue vancomycin and Zosyn to decrease risk of his nephrotoxicity as the patient only have elevated creatinine on admission 2-start the patient on Unasyn 3 g every 6 hours and recommended to the patient for a another 24 to 48-hour before transition to oral antibiotics We will follow on clinical condition and cultures to further adjust medication if needed Thank you for this consultation we will follow the patient along with you Past Medical History Past Medical History: Diabetes Mellitus, Hypertension History of Any Multi-Drug Resistant Organisms: None Reported Past Surgical History: Cholecystectomy Additional Past Surgical History / Comment(s): march 2018 left 5th toe amputation. Past Anesthesia/Blood Transfusion Reactions: No Reported Reaction Past Psychological History: No Psychological Hx Reported Smoking Status: Never smoker Past Alcohol Use History: None Reported Past Drug Use History: None Reported - Past Family History Father Family Medical History: AFIB, Hypertension Mother Family Medical History: Rheumatoid Arthritis (RA) Medications and Allergies Home Medications Medication Instructions Recorded Confirmed Type glipiZIDE [Glucotrol] 5 mg PO AC-BID 04/02/18 03/02/21 History Brimonidine Tartrate/Timolol 1 drop BOTH EYES BID 02/26/21 03/02/21 History [Combigan 0.2%-0.5% Eye Drops] Latanoprost [Xalatan 0.005%] 1 drop BOTH EYES HS 02/26/21 03/02/21 History Losartan Potassium 50 mg PO DAILY 02/26/21 03/02/21 History metFORMIN HCL [Glucophage] 1,000 mg PO BID 02/26/21 03/02/21 History Sulfamethox-Tmp 800-160Mg [Bactrim 1 tab PO Q12HR 03/02/21 03/02/21 History Ds] Allergies Allergy/AdvReac Type Severity Reaction Status Date / Time No Known Allergies Allergy Verified 03/02/21 09:05 Physical Exam Vitals: Vital Signs Temp Pulse Resp BP Pulse Ox 03/05/21 19:16 97.5 F L 74 17 167/81 97 03/05/21 12:37 97.5 F L 65 20 157/84 97 03/05/21 05:15 97.9 F 91 20 159/73 95 Intake and Output 03/05/21 03/05/21 03/05/21 06:59 14:59 22:59 Intake Total 240 Balance 240 Intake: Oral 240 Other: Voiding Method Toilet Results CBC & Chem 7: 03/05/21 04:51 03/05/21 04:51 Labs: Abnormal Lab Results - Last 24 Hours (Table) 03/05/21 03/05/21 03/05/21 Range/Units 04:51 04:51 06:47 WBC 12.7 H (3.8-10.6) k/uL RBC 3.47 L (4.30-5.90) m/uL Hgb 10.9 L (13.0-17.5) gm/dL Hct 34.8 L (39.0-53.0) % MCV 100.2 H (80.0-100.0) fL Chloride 110 H (98-107) mmol/L Carbon Dioxide 19 L (22-30) mmol/L BUN 24 H (9-20) mg/dL Creatinine 1.43 H (0.66-1.25) mg/dL Glucose 123 H (74-99) mg/dL POC Glucose (mg/dL) 110 H (75-99) mg/dL Calcium 8.2 L (8.4-10.2) mg/dL 03/05/21 03/05/21 Range/Units 11:57 17:05 WBC (3.8-10.6) k/uL RBC (4.30-5.90) m/uL Hgb (13.0-17.5) gm/dL Hct (39.0-53.0) % MCV (80.0-100.0) fL Chloride (98-107) mmol/L Carbon Dioxide (22-30) mmol/L BUN (9-20) mg/dL Creatinine (0.66-1.25) mg/dL Glucose (74-99) mg/dL POC Glucose (mg/dL) 176 H 276 H (75-99) mg/dL Calcium (8.4-10.2) mg/dL Microbiology - Last 24 Hours (Table) 03/02/21 07:30 Blood Culture - Preliminary Blood No Growth after 72 hours 03/02/21 07:30 Blood Culture - Preliminary Blood No Growth after 72 hours
[2021-03-06] MEDS: HEPARIN SODIUM,PORCINE/PF 5,000 UNIT/0.5 ML SYRINGE SQ SCH ×4 (00:10→23:16)
[2021-03-06] MEDS: AMPICILLIN-SULBACTAM 3 GM in SODIUM CHLORIDE 0.9% 100 ML IVPB SCH ×5 (00:12→23:16)
[2021-03-06] MEDS ORDERED: VANCOMYCIN TROUGH DUE 1 EACH MISC MISCELLANE ONE (05:00)
[2021-03-06 07:38] LABS: Glucose,Whole Blood 135 mg/dL (75-99)
--- NOTE | 2021-03-06 08:18 | P.PN ---
Progress Note - Text Progress Note Date: 03/06/21 The patient reports diminished left orchialgia. He remains afebrile. The testicle remains tender and enlarged, though considerably less tender to palpation than it was at the time of admission. My suggestion is that he be discharged home soon on antibiotics targeting the MSSA. He will follow up with me in approximately 3 weeks.
[2021-03-06] MEDS: INSULIN ASPART (NovoLOG) 100 UNIT/ML VIAL SQ SCH ×4 (08:34→21:01)
[2021-03-06] MEDS: TIMOLOL 0.5% OPHTH DROPS 5 ML BTL BOTH EYES SCH ×2 (08:36→21:01)
[2021-03-06] MEDS: BRIMONIDINE TARTRATE 0.2% DROPS 5 ML BTL BOTH EYES SCH ×2 (08:36→21:02)
[2021-03-06 11:52] LABS: Glucose,Whole Blood 274 mg/dL (75-99)
--- NOTE | 2021-03-06 15:30 | P.PN ---
<Kei Harding - Last Filed: 03/06/21 15:09> Subjective Progress Note Date: 03/06/21 Hospital course: Patient is a 61-year-old male with a past medical history of hypertension and type II ixf-qrjrppl-hobhjwlxr diabetes mellitus. Patient reports that he was recently diagnosed with a UTI on 02/26/21 after presenting to the emergency department with the chief complaint of difficulties with urination and was discharged home on Bactrim 8001 60 mg every 12 hours 10 days. Patient reports he has been taking antibiotic as prescribed but states that evening he began noticing testicular pain and swelling. Patient reports this pain and swelling significantly increased throughout the weekend and states he came to the emergency department today because he could no longer tolerate the pain he was in. Patient was seen and fully evaluated in the emergency department. CT abdomen and pelvis revealing scrotal wall thickening with left-sided hydrocele reporting inflammatory process extended into the left inguinal canal with no evidence of drainable abscess reported. Scrotal ultrasound concerning for left- sided orchitis. Lactate normal findings at 1.7. CRP was elevated at 32.7 and patient positive for leukocytosis with WBC count of 16.9. AK with BUN 60, creatinine 2.54, and GFR of 26. Urinalysis was positive for infection. Patient started on IV antibiotics vancomycin and Zosyn. Patient admitted under our services with consultation to urology. 03/03/21: Patient was seen and fully evaluated at the bedside this morning. He reports continued testicular swelling and pain. Upon assessment testicular swelling shows slight improvement however significant erythema and reports of tenderness to touch remains. Patient reports that he continues to urinate without any difficulties and denies having any dysuria or hematuria. 03/04/21: Patient was seen and fully evaluated at the bedside again this morning. Testicular swelling appears to be lightly improved however significant erythema and reports of tenderness remains. Patient reports pain is similar to the pain he felt upon arrival and states pain medication does help. Patient denies worsening of these symptoms. He continues to deny having any hematuria or dysuria and denies having any chills, diaphoresis, abdominal pain, suprapubic pain or pressure, nausea, vomiting, or any other concerns at this time. WBC count decreasing daily. Currently 12.7 from initial 16.9. 03/05/21: Patient was seen and fully evaluated at the bedside. Testicular swelling remains unchanged with persistent significant erythema. Patient states pain remains the same and unchanged from yesterday. Blood culture showing no growth after 72 hours and urine culture is negative. Secondary to be very slow to no improvement in epididymoorchitis, consult placed to infectious disease for further evaluation. Vital signs remained stable. Patient remains afebrile and leukocytosis continues to improve. Patient denies having any headache, lightheadedness, dizziness, chest pain, palpitations, shortness of breath, abdominal pain or suprapubic pain, dysuria, urinary retention, frequency, or urgency. 03/06/21: Patient seen at bedside this morning. He was resting comfortably in bed at this time. He reports pain and swelling beginning to slightly improved today. Upon assessment mild improvement in swelling noted. Patient blood culture positive for Staphylococcus epidermidis, likely contaminant. Patient is on Unasyn at this time for treatment of his orchitis and ID is following. Patient denies having any questions or concerns at this time. We will continue to monitor with plans to transition over to oral antibiotics possibly tomorrow and likely discharge home in the next 1-2 days pending further blood culture results. Physical exam: Vital signs reviewed and stable. General: Nontoxic, no distress and appears stated age. Derm: Skin warm and dry, normal coloration for ethnicity. Head: Atraumatic, normocephalic and symmetric. Eyes: EOMs intact, no lid lag, and anicteric sclera Mouth: no lip lesions, mucus membranes moist Cardiovascular: regular rate and rhythm with normal S1S2, no murmur, positive posterior tibial pulses bilaterally, and cap refill < 2 seconds. Lungs: Respirations even, regular, and unlabored on room air. Lungs CTA bilaterally, no rhonchi, no rales, no wheezing, and no accessory muscle usage. GI/: Abdomen soft, nontender to palpation, no guarding, no appreciable organomegaly. Significant left testicular swelling and erythema with increased warmth. Patient reports significantly painful to touch. Slight decrease in swe lling Ext: ROM intact. No gross muscle atrophy, no edema, no contractures Neuro: Speech clear, face symmetrical and CN II-XII grossly intact with no noted focal neuro deficits Psych: Alert and oriented to person, place, time, and situation. Appropriate and pleasant affect. Assessment and Plan of Care: Left testicular pain and swelling, scrotal ultrasound concerning for left-sided epididymo-orchitis UTI, failed outpatient treatment -CT abdomen and pelvis revealing scrotal wall thickening with left-sided hydrocele reporting inflammatory process extended into the left inguinal canal with no evidence of drainable abscess reported. -Scrotal ultrasound concerning for left-sided orchitis. -Urine culture negative -Blood culture positive for Staphylococcus epidermidis, patient on Unasyn. Likely contaminant, blood cultures repeated. -Infectious disease consulted secondary to little to no improvement after 4 day course of vancomycin and Zosyn, Dr. Manriquez changed antibiotics to Unasyn.. -Continue Bladder management -Urology following Acute kidney injury, improving -Likely secondary to reports of previous urinary retention, current infection, a nd dehydration. -Hold nephrotoxic medications Bactrim and losartan -Continue close monitoring with repeat a.m. labs. Hyponatremia, resolved -Continue hydration with IV fluids. -Continue close monitoring with repeat a.m. labs. Anion gap metabolic acidosis of unclear etiology -Fluid hydration showing no improvement, fluids discontinued at this time. -Continue close monitoring with repeat a.m. labs. Hypertension -Monitor vital signs, Cozaar held secondary to acute kidney injury. Type II xqt-toxssue-jefxqpgnl diabetes mellitus -Hold oral glycemic medications in place patient on glycemic protocol with NovoLog sliding scale. -Heart healthy and carb consistent diet. Glaucoma -Continue daily medication regimen CODE STATUS: Full code DVT prophylaxis: Heparin Discussed with: Patient and RN Anticipated discharge date: Clinical course to determine Anticipated discharge place: Home A total of 45 minutes was spent on the care of this complex patient more than 50% of the time was spent in counseling and care coordination. Objective - Vital Signs Vital signs: Vital Signs Temp 98.2 F 03/06/21 04:00 Pulse 74 03/05/21 19:16 Resp 20 03/06/21 04:00 BP 156/88 03/06/21 04:00 Pulse Ox 95 03/06/21 04:00 Intake & Output 03/05/21 03/06/21 03/06/21 18:59 06:59 18:59 Intake Total 240 337 Balance 240 337 Intake: Oral 240 337 Other: Voiding Method Toilet Toilet # Voids 4 - Labs CBC & Chem 7: 03/05/21 04:51 03/05/21 04:51 Labs: Abnormal Lab Results - Last 24 Hours (Table) 03/05/21 03/05/21 03/05/21 Range/Units 11:57 17:05 21:31 POC Glucose (mg/dL) 176 H 276 H 250 H (75-99) mg/dL 03/06/21 Range/Units 07:34 POC Glucose (mg/dL) 135 H (75-99) mg/dL Microbiology - Last 24 Hours (Table) 03/02/21 07:30 Blood Culture - Preliminary Blood No Growth after 96 hours 03/02/21 07:30 Blood Culture Gram Stain - Preliminary Blood 03/02/21 07:30 Blood Culture - Final Blood <Yumiko Chavarria - Last Filed: 03/06/21 17:47> Subjective Patient seen and examined independently. Patient was also seen by Kei Harding NP and case was discussed. I am in agreement with subjective, physical exam, assessment and plan as written above and amended below. States that he thinks pain and swelling is slightly better. No nausea vomiting or diarrhea. Likely home in a.m. Blood culture came back as staph epi and this is likely reflective of contaminant and not true source of infection is urine culture has staph aureus General: non toxic, no distress, appears at stated age Derm: warm, dry Head: atraumatic, normocephalic, symmetric Eyes: EOMI, no lid lag, anicteric sclera Mouth: no lip lesion, mucus membranes moist Cardiovascular: S1S2 reg, no murmur, positive posterior tibial pulse bilateral, Lungs: Decreased breath sounds bilateral, no rhonchi, no rales , no accessory muscle use Abdominal: soft, nontender to palpation, no guarding, no appreciable organomegaly : Erythema with swelling, skin sloughing of left testicle Ext: no gross muscle atrophy, no edema, no contractures Neuro: CN II-XI grossly intact, no focal neuro deficits Psych: Alert, oriented, appropriate affect Objective - Vital Signs Vital signs: Vital Signs Temp 97.6 F 03/06/21 12:30 Pulse 63 03/06/21 12:30 Resp 19 03/06/21 12:30 BP 167/87 03/06/21 12:30 Pulse Ox 97 03/06/21 12:30 Intake & Output 03/05/21 03/06/21 03/06/21 18:59 06:59 18:59 Intake Total 240 337 Balance 240 337 Intake: Oral 240 337 Other: Voiding Method Toilet Toilet Toilet # Voids 4 - Labs CBC & Chem 7: 03/05/21 04:51 03/05/21 04:51 Labs: Abnormal Lab Results - Last 24 Hours (Table) 03/05/21 03/06/21 03/06/21 Range/Units 21:31 07:34 11:38 POC Glucose (mg/dL) 250 H 135 H 274 H (75-99) mg/dL 03/06/21 Range/Units 17:08 POC Glucose (mg/dL) 191 H (75-99) mg/dL Microbiology - Last 24 Hours (Table) 03/02/21 07:30 Blood Culture Gram Stain - Preliminary Blood Blood Culture - Preliminary Staphylococcus epidermidis 03/02/21 07:30 Blood Culture - Preliminary Blood No Growth after 96 hours 03/02/21 07:30 Blood Culture - Final Blood
[2021-03-06 17:10] LABS: Glucose,Whole Blood 191 mg/dL (75-99)
[2021-03-06 20:40] LABS: Glucose,Whole Blood 244 mg/dL (75-99)
--- NOTE | 2021-03-06 20:40 | PN ---
PROGRESS NOTE DATE OF SERVICE: 03/06/2021 REASON FOR FOLLOW UP: Left epididymo-orchitis and scrotal cellulitis. INTERVAL HISTORY: The patient is afebrile. Still complaining of pain to the left scrotal area, no worsening though. No chest pain, shortness of breath or cough. No abdominal pain or diarrhea. PHYSICAL EXAMINATION: Blood pressure is 137/87, pulse of 63, temperature is97.6. He is 97% on room air. General description is a middle-aged male lying in bed in no distress. Respiratory system: Unlabored breathing, clear to auscultation anteriorly. Heart S1, S2. Regular rate and rhythm. Abdomen soft, no tenderness. Scrotum still has significant swelling and some hardness on the left scrotal testicular area. No open wound or any drainage. DIAGNOSTIC IMPRESSION AND PLAN: Patient with left scrotal cellulitis and underlying epididymo-orchitis. Patient is covered with Unasyn on the basis of the culture positive for MSSA, to continue and monitor clinical course closely. Continue supportive care. MMODL / IJN: [id number] /
[2021-03-06] MEDS: LATANOPROST 0.005% OPHTH DROPS 2.5 ML BTL BOTH EYES SCH (21:01)
[2021-03-07] MEDS: AMPICILLIN-SULBACTAM 3 GM in SODIUM CHLORIDE 0.9% 100 ML IVPB SCH ×2 (06:15→12:19)
[2021-03-07 06:28] LABS: HCT 34.9 % (39.0-53.0); HGB 11.6 gm/dL (13.0-17.5); MCH 32.6 pg (25.0-35.0); MCHC 33.2 g/dL (31.0-37.0); Mean Platelet Volume 7.1; Platelet Count 522 k/uL (150-450); RBC 3.56 m/uL (4.30-5.90); RDW 12.8 % (11.5-15.5); WBC 10.3 k/uL (3.8-10.6)
[2021-03-07 07:37] LABS: Glucose,Whole Blood 124 mg/dL (75-99)
[2021-03-07] MEDS: INSULIN ASPART (NovoLOG) 100 UNIT/ML VIAL SQ SCH ×2 (07:48→12:19)
[2021-03-07 09:39] LABS: African American GFR (CKD) 74.7 (60.0-200.0); Anion Gap 7.7 mmol/L (4.00-12.00); BUN/Creat Ratio 15.83 Ratio (12.00-20.00); Calcium 8.4 mg/dL (8.7-10.3); Carbon Dioxide 24.3 mmol/L (21.6-31.8); Non-African American GFR(CKD) 64.4 (60.0-200.0); Potassium 4.1 mmol/L (3.5-5.5)
[2021-03-07] MEDS: TIMOLOL 0.5% OPHTH DROPS 5 ML BTL BOTH EYES SCH (10:16)
[2021-03-07] MEDS: HEPARIN SODIUM,PORCINE/PF 5,000 UNIT/0.5 ML SYRINGE SQ SCH (10:16)
[2021-03-07] MEDS: BRIMONIDINE TARTRATE 0.2% DROPS 5 ML BTL BOTH EYES SCH (10:16)
--- NOTE | 2021-03-07 10:54 | P.PN ---
Progress Note - Text Progress Note Date: 03/07/21 The patient's pain continues to improve, and he remains afebrile. On examination, the testicle remains enlarged but is somewhat less tender. I am in agreement with him being discharged home on an antibiotic to which the MSSA is sensitive. He will follow up with me in 3 weeks, sooner if needed. He has been advised to contact me if his condition begins to worsen.
[2021-03-07 12:05] LABS: Glucose,Whole Blood 144 mg/dL (75-99)
[2021-03-07 12:38] VITALS: BP 164/89; PULSE 67; RESP 18; TEMP 98.3
--- NOTE | 2021-03-07 13:38 | P.DS ---
<Kei Harding - Last Filed: 03/07/21 18:03> Providers Expected date of discharge: 03/07/21 Hospital Course: Discharge Diagnosis: Left testicular pain and swelling, scrotal ultrasound concerning for left-sided epididymo-orchitis UTI, failed outpatient treatment Acute kidney injury, resolved Hyponatremia, resolved Anion gap metabolic acidosis of unclear etiology likely secondary to EMERITA and current infection, resolved Hypertension Type II ddg-oootyrq-rsuptmwlv diabetes mellitus Glaucoma Hospital Course: Patient is a 61-year-old male with a past medical history of hypertension and type II lnf-nlgkzyc-nngfnwqpz diabetes mellitus. Patient reports that he was recently diagnosed with a UTI on 02/26/21 after presenting to the emergency department with the chief complaint of difficulties with urination and was discharged home on Bactrim 8001 60 mg every 12 hours 10 days. Patient reports he has been taking antibiotic as prescribed but states that evening he began noticing testicular pain and swelling. Patient reports this pain and swelling significantly increased throughout the weekend and states he came to the emergency department today because he could no longer tolerate the pain he was in. Patient was seen and fully evaluated in the emergency department. CT abdomen and pelvis revealing scrotal wall thickening with left-sided hydrocele reporting inflammatory process extended into the left inguinal canal with no evidence of drainable abscess reported. Scrotal ultrasound concerning for left- sided orchitis. Lactate normal findings at 1.7. CRP was elevated at 32.7 and patient positive for leukocytosis with WBC count of 16.9. EMERITA with BUN 60, creatinine 2.54, and GFR of 26. Urinalysis was positive for infection. Patient started on IV antibiotics and admitted under our services with consultation to urology and infectious disease. Urine culture negative. One blood culture positive for Staphylococcus epidermidis believed to be contaminant as additional Blood cultures 4 revealed no growth. Patient received 5 day course of IV antibiotics and has now began to show improvement in swelling and tenderness of testicles. Patient cleared by infectious disease and urology for discharge home on oral antibiotic at this time. Patient being discharged home on Augmentin 875-125 mg tablet to take every 12 hours 14 days. Patient to follow-up with Dr. Green in office in 3 weeks or sooner if symptoms worsen. Physical exam: Vital signs reviewed and stable. General: Nontoxic, no distress and appears stated age. Derm: Skin warm and dry, normal coloration for ethnicity. Head: Atraumatic, normocephalic and symmetric. Eyes: EOMs intact, no lid lag, and anicteric sclera Mouth: no lip lesions, mucus membranes moist Cardiovascular: regular rate and rhythm with normal S1S2, no murmur, positive posterior tibial pulses bilaterally, and cap refill < 2 seconds. Lungs: Respirations even, regular, and unlabored on room air. Lungs CTA bilaterally, no rhonchi, no rales, no wheezing, and no accessory muscle usage. GI/: Abdomen soft, nontender to palpation, no guarding, no appreciable organomegaly. Left testicular swelling and erythema with increased warmth. Patient reports improvement in pain and decrease in swelling. Ext: ROM intact. No gross muscle atrophy, no edema, no contractures Neuro: Speech clear, face symmetrical and CN II-XII grossly intact with no noted focal neuro deficits Psych: Alert and oriented to person, place, time, and situation. Appropriate and pleasant affect. A total of 45 minutes of time were spent preparing this complex discharge summary. Patient Condition at Discharge: Stable Plan - Discharge Summary Discharge Rx Participant: No New Discharge Prescriptions: New Amoxicillin/Potassium Clav [Augmentin 875-125 Tablet] 1 tab PO Q12HR 14 Days #28 tab Continue glipiZIDE [Glucotrol] 5 mg PO AC-BID metFORMIN HCL [Glucophage] 1,000 mg PO BID Latanoprost [Xalatan 0.005%] 1 drop BOTH EYES HS Losartan Potassium 50 mg PO DAILY Brimonidine Tartrate/Timolol [Combigan 0.2%-0.5% Eye Drops] 1 drop BOTH EYES BID Discontinued Sulfamethox-Tmp 800-160Mg [Bactrim Ds] 1 tab PO Q12HR Discharge Medication List glipiZIDE [Glucotrol] 5 mg PO AC-BID 04/02/18 [History] Brimonidine Tartrate/Timolol [Combigan 0.2%-0.5% Eye Drops] 1 drop BOTH EYES BID 02/26/21 [History] Latanoprost [Xalatan 0.005%] 1 drop BOTH EYES HS 02/26/21 [History] Losartan Potassium 50 mg PO DAILY 02/26/21 [History] metFORMIN HCL [Glucophage] 1,000 mg PO BID 02/26/21 [History] Amoxicillin/Potassium Clav [Augmentin 875-125 Tablet] 1 tab PO Q12HR 14 Days #28 tab 03/07/21 [Rx] Follow up Appointment(s)/Referral(s): Eduardo Green MD [STAFF PHYSICIAN] - [facility] [NON-STAFF] - 03/15/21 1:30 am Anthony Potter [Primary Care Provider] - 1-2 days Patient Instructions/Handouts: Amoxicillin (By mouth), Epididymo-Orchitis (GEN), Orchitis (GEN) Activity/Diet/Wound Care/Special Instructions: It is very important to take your antibiotic directly as prescribed without missing any doses. You will need to follow up outpatient with your urologist, Dr. Green as well as your primary care doctor, Dr. Potter. You also have an appointment at the wound care center on 03/15/21 at 1:30 PM Thank you for allowing us to participate in your care, it was truly a pleasure having a for our patient. Discharge Disposition: HOME SELF-CARE <Yumiko Chavarria - Last Filed: 03/07/21 18:38> Providers Date of admission: 03/02/21 10:35 Attending physician: Yumiko Chavarria DO Consults: 03/02/21 10:47 Consult Physician Routine Consulting Provider: Eduardo Green Consult Reason/Comments: scrotal edema/cellulitis Do you want consulting provider notified?: Yes 03/05/21 11:08 Consult Physician Routine Consulting Provider: Tushar Manriquez Consult Reason/Comments: pt w/ epididymo-orchitis little improvement day 4 vanc &zosyn w cult neg Do you want consulting provider notified?: Yes Primary care physician: Anthony Potter Hospital Course: Additional Diagnosis: left-sided epididymo-orchitis Kei Harding NP rendered care for this patient independently, reviewed the findings and plan as documented in the note above. I did not physically speak with or examine the patient on this date.
[2021-03-09 10:57] LABS: Chlamydia trachomatis rRNA Not detected (Not detected); Neisseria gonorrhoeae rRNA Not detected (Not detected)
== END 2021-03-07 16:07 | disposition home or self-care (01) | DRG 728 ==
LOC: EC 06:57 → 5NMEDONC 10:35
PROVIDERS: ADMIT Internal Medicine; ATTEND Internal Medicine
DX: N45.3 Epididymo-orchitis (principal); E87.1 Hypo-osmolality and hyponatremia; E87.2 Acidosis; N12 Tubulo-interstitial nephritis, not specified as acute or chronic; N17.9 Acute kidney failure, unspecified; L97.528 Non-pressure chronic ulcer of other part of left foot with other specified severity; E11.621 Type 2 diabetes mellitus with foot ulcer; L97.522 Non-pressure chronic ulcer of other part of left foot with fat layer exposed; T36.8X5A Adverse effect of other systemic antibiotics, initial encounter; Z20.822 Contact with and (suspected) exposure to COVID-19; N43.3 Hydrocele, unspecified; B95.61 Methicillin susceptible Staphylococcus aureus infection as the cause of diseases classified elsewhere; H40.9 Unspecified glaucoma; I10 Essential (primary) hypertension; Z79.84 Long term (current) use of oral hypoglycemic drugs; X58.XXXA Exposure to other specified factors, initial encounter; Z79.899 Other long term (current) drug therapy
CPT/HCPCS: 36415; 74176; 76870; 80048; 80053; 80202; 80306; 80320; 81001; 83605; 83735; 83930; 83935; 85025; 85027; 86140; 87040; 87086; 87491; 87635; 93975; 96361; 96365; 96367; 96375; 99285

== ENCOUNTER 2021-05-03 06:22 | Emergency (ER) | payer OTHER ==
[2021-05-03 06:27] VITALS: BP 180/90; PULSE 75; RESP 18; TEMP 98
[2021-05-03] MEDS ORDERED: KETOROLAC 15 MG/ML 1 ML VIAL IM STA (06:42)
--- NOTE | 2021-05-03 06:46 | ED ---
General Adult HPI - General Chief complaint: Extremity Injury, Upper Stated complaint: Right shoulder pain Time Seen by Provider: 05/03/21 06:28 Source: patient Mode of arrival: ambulatory - History of Present Illness Initial comments: 61-year-old male presents to the emergency room for a chief complaint of right arm pain. Patient states a couple weeks ago he fell and believes he injured his right shoulder. Patient states that he went to urgent care but they did not do x-rays and tried muscle relaxers. It is very painful to lift his arm. States sometimes he is unable to do this because of pain. States he thought his arm was maybe a bit swollen. States he would like an x-ray today. Patient denies any chest pain. Patient has no other complaints at this time including shortness of breath, chest pain, abdominal pain, nausea or vomiting, headache, or visual changes. - Related Data Home Medications Medication Instructions Recorded Confirmed glipiZIDE [Glucotrol] 5 mg PO AC-BID 04/02/18 03/02/21 Brimonidine Tartrate/Timolol 1 drop BOTH EYES BID 02/26/21 03/02/21 [Combigan 0.2%-0.5% Eye Drops] Latanoprost [Xalatan 0.005%] 1 drop BOTH EYES HS 02/26/21 03/02/21 Losartan Potassium 50 mg PO DAILY 02/26/21 03/02/21 metFORMIN HCL [Glucophage] 1,000 mg PO BID 02/26/21 03/02/21 Previous Rx's Medication Instructions Recorded Amoxicillin/Potassium Clav 1 tab PO Q12HR 14 Days #28 tab 03/07/21 [Augmentin 875-125 Tablet] Allergies Allergy/AdvReac Type Severity Reaction Status Date / Time No Known Allergies Allergy Verified 05/03/21 06:27 Review of Systems ROS Statement: Those systems with pertinent positive or pertinent negative responses have been documented in the HPI. ROS Other: All systems not noted in ROS Statement are negative. Past Medical History Past Medical History: Diabetes Mellitus, Hypertension History of Any Multi-Drug Resistant Organisms: None Reported Past Surgical History: Cholecystectomy Additional Past Surgical History / Comment(s): march 2018 left 5th toe amputation. Past Anesthesia/Blood Transfusion Reactions: No Reported Reaction Past Psychological History: No Psychological Hx Reported Smoking Status: Never smoker Past Alcohol Use History: None Reported Past Drug Use History: None Reported - Past Family History Father Family Medical History: AFIB, Hypertension Mother Family Medical History: Rheumatoid Arthritis (RA) General Exam General appearance: alert, in no apparent distress Head exam: Present: atraumatic Eye exam: Present: normal appearance, PERRL, EOMI. Absent: scleral icterus, conjunctival injection ENT exam: Present: normal exam, mucous membranes moist Neck exam: Present: normal inspection, full ROM. Absent: tenderness Respiratory exam: Present: normal lung sounds bilaterally. Absent: respiratory distress, wheezes Cardiovascular Exam: Present: regular rate, normal rhythm, normal heart sounds Extremities exam: Present: normal capillary refill (Capillary refill less than 2 seconds, radial pulse 2+ right upper extremity), other (Sensation intact right upper extremity.). Absent: full ROM (Patient has 30 flexion, 30 abduction of the right shoulder), tenderness (No tenderness in the right arm.) Course Vital Signs 05/03/21 06:23 Temperature 98 F Pulse Rate 75 Respiratory 18 Rate Blood Pressure 180/90 O2 Sat by Pulse 98 Oximetry Medical Decision Making - Medical Decision Making vitals stable, pt hypertensive likely secondary to pain with history of htn. HPI and physical exam as documented. Neurovascular status intact in the right arm. There is arthropathy at the AC joint. No fracture or dislocation in the right shoulder or right humerus. Ultrasound of the right arm shows no DVT. Patient needs further evaluation from orthopedics. He will be referred there and will call this morning. We will send him home with Tylenol 3 for pain. He will return here for any worsening symptoms. Disposition Clinical Impression: Shoulder pain, right Disposition: HOME SELF-CARE Condition: Good Instructions (If sedation given, give patient instructions): Shoulder Pain (ED) Additional Instructions: Please take pain medication as directed. Do not drive while taking it. Follow- up with your doctor in one to 2 days. Return to the emergency room for any worsening symptoms. Is patient prescribed a controlled substance at d/c from ED?: No Referrals: Anthony Potter [Primary Care Provider] - 1-2 days Chris Whitfield DO [Doctor of Osteopathic Medicine] - 1-2 days Time of Disposition: 08:01
--- NOTE | 2021-05-03 07:03 | XR ---
Right shoulder and right humerus HISTORY: Trauma and pain 2 views of the right humerus, 3 views the right shoulder, no comparisons Arthropathy is present at the acromioclavicular joint. Bone mineralization, joint spaces and alignmen t are maintained. Right lung apex as visualized is normal, thoracic spondylosis is present. IMPRESSION: No fracture or dislocation.
--- NOTE | 2021-05-03 07:44 | US ---
EXAMINATION TYPE: US venous doppler duplex UE RT DATE OF EXAM: 05/03/2021 COMPARISON: NONE CLINICAL HISTORY: pain. Right arm pain and swelling SIDE PERFORMED: Right Grayscale, color doppler, spectral doppler imaging performed of the deep veins of the right upper ext remity. Visualized portions of the right internal jugular vein, right subclavian vein, right axillary vein, b rachial veins, right basilic and right cephalic vein, radial and ulnar veins show normal compressibil ity, no abnormal luminal echoes, there are normal venous waveforms. Right Arm: Appears negative for DVT IMPRESSION: No evident deep venous thrombosis in the right upper extremity as described
[2021-05-03] MEDS ORDERED: ACET/COD 300 MG/30 MG STARTER PACK 6 TAB BTL PO STA (08:01)
== END 2021-05-03 08:18 | disposition home or self-care (01) ==
LOC: EC 06:22
DX: M25.511 Pain in right shoulder (principal); I10 Essential (primary) hypertension; E11.9 Type 2 diabetes mellitus without complications; Z79.84 Long term (current) use of oral hypoglycemic drugs; Z90.49 Acquired absence of other specified parts of digestive tract
CPT/HCPCS: 99284; 96372; 73030; 73060; 93971; J1885

== ENCOUNTER → 2021-06-24 | Outpatient (CLI) | payer OTHER ==
--- NOTE | 2021-06-25 05:02 | MR ---
EXAMINATION TYPE: MR shoulder RT wo con DATE OF EXAM: 06/24/2021 COMPARISON: None HISTORY: Right shoulder pain & limited range of movement since 2020 due to fall. Multiplanar multiecho imaging of the right shoulder without contrast. There is large amount of fluid at the shoulder joint. There is large defect in the supraspinatus tend on with significant retraction of the tendon to the AC joint. There is patchy increased signal on the T2 images in the humeral head. There is partial tear of the biceps tendon. There is some deformity o f the anterior glenoid labrum consistent with degenerative phenomenon. Subscapularis tendon shows thi ckening and increased signal on the anterior aspect consistent with partial tear. There is 3 cm area of increased signal on T2 images in the posterior aspect of the humeral head with irregular cortex an d cortical destruction and consistent with a depressed fracture. There is some spurring at the AC larisa nt. IMPRESSION: Large rotator cuff tear with retraction of the supraspinatus tendon. Large shoulder joint effusion. L arge lesion on the posterior aspect of the humeral head that could be sequela of a fracture. Destruct valerie tumor not excluded. There is spurring at the AC joint with subacromial impingement.
== END | disposition home or self-care (01) ==
LOC: RADMRIMAIN 12:35
PROVIDERS: ATTEND Orthopaedic Surgery Hand Surgery
DX: S43.421A Sprain of right rotator cuff capsule, initial encounter (principal); M89.8X2 Other specified disorders of bone, upper arm; M75.41 Impingement syndrome of right shoulder; M25.411 Effusion, right shoulder; W19.XXXA Unspecified fall, initial encounter

== ENCOUNTER 2021-07-21 10:14 | Emergency (ER) | payer OTHER ==
[2021-07-21 10:23] VITALS: BP 113/70; PULSE 95; RESP 18; TEMP 97.2
[2021-07-21 11:40] LABS: Basophils # (A) 0.1 k/uL (0-0.2); Basophils % (A) 1 %; Eosinophils # (A) 0.3 k/uL (0-0.7); Eosinophils % (A) 4 %; HCT 33.6 % (39.0-53.0); Lymphocytes # (A) 1.3 k/uL (1.0-4.8); Lymphocytes % (A) 15 %; MCH 30.4 pg (25.0-35.0); MCHC 32.7 g/dL (31.0-37.0); MCV 92.8 fL (80.0-100.0); Mean Platelet Volume 7.2; Monocytes # (A) 0.5 k/uL (0-1.0); Monocytes % (A) 6 %; Neutrophils # (A) 6.2 k/uL (1.3-7.7); Neutrophils % (A) 73 %; Platelet Count 396 k/uL (150-450); RBC 3.62 m/uL (4.30-5.90); RDW 13.4 % (11.5-15.5); WBC 8.5 k/uL (3.8-10.6)
--- NOTE | 2021-07-21 11:49 | ED ---
General Adult HPI - General Chief complaint: Recheck/Abnormal Lab/Rx Stated complaint: high potassium Time Seen by Provider: 07/21/21 10:25 Source: patient, family, RN notes reviewed Mode of arrival: ambulatory Limitations: no limitations - History of Present Illness Initial comments: 61-year-old male presents emergency Department with chief complaint of abnormal labs. Patient states he had some basic labs drawn yesterday for presurgical clearance states she received a phone call stating that his potassium was high. Patient states does not take any potassium medication denies any history of renal failure. Denies any complaints including chest pain palpitations shortness breath leg swelling abdominal pain - Related Data Home Medications Medication Instructions Recorded Confirmed glipiZIDE [Glucotrol] 5 mg PO AC-BID 04/02/18 07/21/21 Brimonidine Tartrate/Timolol 1 drop BOTH EYES BID 02/26/21 07/21/21 [Combigan 0.2%-0.5% Eye Drops] Latanoprost [Xalatan 0.005%] 1 drop BOTH EYES HS 02/26/21 07/21/21 Losartan Potassium 50 mg PO DAILY 02/26/21 07/21/21 metFORMIN HCL [Glucophage] 1,000 mg PO BID 02/26/21 07/21/21 HYDROcodone/APAP 5-325MG [[place] 1 tab PO Q8H PRN 07/21/21 07/21/21 5-325] Allergies Allergy/AdvReac Type Severity Reaction Status Date / Time No Known Allergies Allergy Verified 07/21/21 12:13 Review of Systems ROS Statement: Those systems with pertinent positive or pertinent negative responses have been documented in the HPI. ROS Other: All systems not noted in ROS Statement are negative. Past Medical History Past Medical History: Diabetes Mellitus, Hypertension History of Any Multi-Drug Resistant Organisms: None Reported Past Surgical History: Cholecystectomy Additional Past Surgical History / Comment(s): march 2018 left 5th toe amputation. Past Anesthesia/Blood Transfusion Reactions: No Reported Reaction Past Psychological History: No Psychological Hx Reported Smoking Status: Never smoker Past Alcohol Use History: None Reported Past Drug Use History: None Reported - Past Family History Father Family Medical History: AFIB, Hypertension Mother Family Medical History: Rheumatoid Arthritis (RA) General Exam Limitations: no limitations General appearance: alert, in no apparent distress Head exam: Present: atraumatic, normocephalic, normal inspection Eye exam: Present: normal appearance, PERRL, EOMI. Absent: scleral icterus, conjunctival injection, periorbital swelling ENT exam: Present: normal exam, normal oropharynx, mucous membranes moist Neck exam: Present: normal inspection, full ROM. Absent: tenderness, meningismus, lymphadenopathy Respiratory exam: Present: normal lung sounds bilaterally. Absent: respiratory distress, wheezes, rales, rhonchi, stridor Cardiovascular Exam: Present: regular rate, normal rhythm, normal heart sounds. Absent: systolic murmur, diastolic murmur, rubs, gallop, clicks GI/Abdominal exam: Present: soft, normal bowel sounds. Absent: distended, tenderness, guarding, rebound, rigid Course Vital Signs 07/21/21 10:16 Temperature 97.2 F L Pulse Rate 95 Respiratory 18 Rate Blood Pressure 113/70 O2 Sat by Pulse 98 Oximetry Medical Decision Making - Medical Decision Making patient's potassium is 5.2. patient's creatinine didn mildly trend down though patient hydrated, will continue oral hydration recheck in 48 hours. - Lab Data Result diagrams: 07/21/21 11:22 07/21/21 11:22 Lab Results 07/21/21 07/21/21 Range/Units 11:22 11:22 WBC 8.5 (3.8-10.6) k/uL RBC 3.62 L (4.30-5.90) m/uL Hgb 11.0 L (13.0-17.5) gm/dL Hct 33.6 L (39.0-53.0) % MCV 92.8 (80.0-100.0) fL MCH 30.4 (25.0-35.0) pg MCHC 32.7 (31.0-37.0) g/dL RDW 13.4 (11.5-15.5) % Plt Count 396 (150-450) k/uL MPV 7.2 Neutrophils % 73 % Lymphocytes % 15 % Monocytes % 6 % Eosinophils % 4 % Basophils % 1 % Neutrophils # 6.2 (1.3-7.7) k/uL Lymphocytes # 1.3 (1.0-4.8) k/uL Monocytes # 0.5 (0-1.0) k/uL Eosinophils # 0.3 (0-0.7) k/uL Basophils # 0.1 (0-0.2) k/uL Sodium 137 (137-145) mmol/L Potassium 5.2 H (3.5-5.1) mmol/L Chloride 107 (98-107) mmol/L Carbon Dioxide 17 L (22-30) mmol/L Anion Gap 13 mmol/L BUN 39 H (9-20) mg/dL Creatinine 1.54 H (0.66-1.25) mg/dL Est GFR (CKD-EPI)AfAm 55 (>60 ml/min/1.73 sqM) Est GFR (CKD-EPI)NonAf 48 (>60 ml/min/1.73 sqM) Glucose 87 (74-99) mg/dL Calcium 9.3 (8.4-10.2) mg/dL Magnesium 1.5 L (1.6-2.3) mg/dL Total Bilirubin 0.6 (0.2-1.3) mg/dL AST 22 (17-59) U/L ALT 16 (4-49) U/L Alkaline Phosphatase 102 (38-126) U/L Total Protein 7.7 (6.3-8.2) g/dL Albumin 3.7 (3.5-5.0) g/dL Disposition Clinical Impression: Hyperkalemia Disposition: HOME SELF-CARE Condition: Stable Instructions (If sedation given, give patient instructions): Hyperkalemia (ED) Additional Instructions: Please return to the Emergency Department if symptoms worsen or any other concerns. Is patient prescribed a controlled substance at d/c from ED?: No Referrals: Anthony Potter [Primary Care Provider] - 1-2 days Time of Disposition: 12:16
[2021-07-21 12:05] LABS: Albumin 3.7 g/dL (3.5-5.0); Calcium 9.3 mg/dL (8.4-10.2); Magnesium 1.5 mg/dL (1.6-2.3); Potassium 5.2 mmol/L (3.5-5.1); Total Bilirubin 0.6 mg/dL (0.2-1.3); Total Protein 7.7 g/dL (6.3-8.2)
== END 2021-07-21 12:45 | disposition home or self-care (01) ==
LOC: EC 10:14
DX: E87.5 Hyperkalemia (principal); E11.9 Type 2 diabetes mellitus without complications; I10 Essential (primary) hypertension; Z79.84 Long term (current) use of oral hypoglycemic drugs; Z79.899 Other long term (current) drug therapy
CPT/HCPCS: 36415; 80053; 83735; 85025; 99284

== ENCOUNTER 2021-09-17 14:50 | Observation (INO) | payer OTHER ==
[2021-09-17 15:23] LABS: Glucose,Whole Blood 172 mg/dL (75-99)
--- NOTE | 2021-09-17 15:43 | ED ---
General Adult HPI - General Chief complaint: Syncope Stated complaint: syncope Time Seen by Provider: 09/17/21 15:03 Source: patient, EMS Mode of arrival: EMS - History of Present Illness Initial comments: This 61-year-old male with past medical history of diabetes and hypertension who presents to the emergency department with a chief complaint of syncope. Patient reports he was getting over a cold and went to play [employer] today. Patient reports that during the game he experienced 2 syncopal episodes while sitting on a chair per the other individuals at his table. Patient woke up on the hard floor on his right side. Patient is unsure if he has had. Patient is not on bl ood thinners. Patient currently endorses right shoulder and right upper arm pain although this pain is unchanged from his previous supraspinatus tendon injury. Patient reports he is having surgery on the tendon on 09/29/21. Patient has no other concerns at this time including including fever, chills, headache, neck pain, shortness of breath, chest pain, abdominal pain, nausea, vomiting, diarrhea, and burning with urination. - Related Data Home Medications Medication Instructions Recorded Confirmed glipiZIDE [Glucotrol] 5 mg PO AC-BID 04/02/18 08/17/21 Brimonidine Tartrate/Timolol 1 drop BOTH EYES BID 02/26/21 08/17/21 [Combigan 0.2%-0.5% Eye Drops] Latanoprost [Xalatan 0.005%] 1 drop BOTH EYES HS 02/26/21 08/17/21 metFORMIN HCL [Glucophage] 1,000 mg PO BID 02/26/21 08/17/21 Losartan Potassium 100 mg PO DAILY 09/17/21 09/17/21 Allergies Allergy/AdvReac Type Severity Reaction Status Date / Time No Known Allergies Allergy Verified 09/17/21 17:22 Review of Systems ROS Statement: Those systems with pertinent positive or pertinent negative responses have been documented in the HPI. ROS Other: All systems not noted in ROS Statement are negative. Past Medical History Past Medical History: Diabetes Mellitus, Hypertension History of Any Multi-Drug Resistant Organisms: None Reported Past Surgical History: Cholecystectomy Additional Past Surgical History / Comment(s): march 2018 left 5th toe amputation. Past Anesthesia/Blood Transfusion Reactions: No Reported Reaction Past Psychological History: No Psychological Hx Reported Smoking Status: Never smoker Past Alcohol Use History: None Reported Past Drug Use History: None Reported - Past Family History Father Family Medical History: AFIB, Hypertension Mother Family Medical History: Rheumatoid Arthritis (RA) General Exam General appearance: alert, in no apparent distress Head exam: Absent: normal inspection (Mild contusion in the right parietal area, patient denies pain with palpation) Eye exam: Present: normal appearance, PERRL, EOMI. Absent: scleral icterus, conjunctival injection, periorbital swelling Neck exam: Present: normal inspection. Absent: tenderness Respiratory exam: Present: normal lung sounds bilaterally. Absent: respiratory distress, wheezes Cardiovascular Exam: Present: regular rate, normal rhythm GI/Abdominal exam: Present: soft, normal bowel sounds. Absent: distended, tenderness, guarding, rebound, rigid Right Shoulder Exam: Present: tenderness (Anteriorly near AC joint ), erythema (Anteriorly). Absent: full ROM (Range of motion limited due to pain) Upper Arm exam: Present: normal inspection. Absent: full ROM (ROM limited due to pain), tenderness Elbow exam: Present: normal inspection, full ROM. Absent: tenderness Forearm Wrist exam: Present: normal inspection, full ROM. Absent: tenderness Hand Wrist exam: Present: normal inspection, full ROM. Absent: tenderness Neuro motor exam: Present: wrist extension intact, thumb opposition intact, thumb IP flexion intact, thumb adduction intact, fingers 2-5 abduction intact Vascular: Present: radial pulse, brachial pulse, ulnar pulse. Absent: pulse deficit radial art, pulse deficit ulnar art, pulse deficit brachial art Neurological exam: Present: alert, oriented X3, CN II-XII intact Psychiatric exam: Present: normal affect, normal mood Skin exam: Present: warm, dry, intact, normal color. Absent: rash Course Vital Signs 09/17/21 09/17/21 14:56 16:32 Temperature 98.1 F Pulse Rate 74 71 Respiratory 18 18 Rate Blood Pressure 111/67 126/71 O2 Sat by Pulse 94 L 99 Oximetry EKG Findings - EKG Comments: EKG Findings:: EKG taken at 15:20. Sinus rhythm with sinus arrhythmia, moderate intraventricular conduction delay, nonspecific T-wave abnormality. Ventricular rate 75. WV interval 189. QRS duration 114. QTC 389 Medical Decision Making - Medical Decision Making This is a 61-year-old who presents with multiple syncopal episodes and fall off of a chair playing while playing [employer] today. Thorough history and examination were performed. Patient is hemodynamically stable. EKG reveals sinus rhythm with sinus arrhythmia. Patient has no white count at 10.6. Troponin is within normal limits. Other laboratory studies are significant for hyperkalemia at 5.9 and hyponatremia at 132. Patient has a mild EMERITA with creatinine at 1.71. CT of the brain and C-spine was obtained which was significant for a moderate scalp contusion along the right parietal convexity with underlying calvarial fracture. 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 Right shoulder and right humerus x-ray were obtained which show no acute changes. Patient offered pain medication and declined. Case discussed with Dr. Boswell. Patient will be admitted for observation due to syncope of unknown etiology, hyperkalemia, and EMERITA. Maintenance fluids were ordered. CTA of the chest and COVID-19 test were ordered per Dr. Boswell's request. Results discussed with patient who verbalizes understanding and is agreeable to admission for observation. Dr. Interiano is my attending. - Lab Data Result diagrams: 09/17/21 15:52 09/17/21 15:52 Lab Results 09/17/21 09/17/21 09/17/21 Range/Units 15:16 15:52 15:52 WBC 10.6 (3.8-10.6) k/uL RBC 4.28 L (4.30-5.90) m/uL Hgb 12.2 L (13.0-17.5) gm/dL Hct 38.1 L (39.0-53.0) % MCV 88.9 (80.0-100.0) fL MCH 28.5 (25.0-35.0) pg MCHC 32.0 (31.0-37.0) g/dL RDW 13.3 (11.5-15.5) % Plt Count 308 (150-450) k/uL MPV 7.2 Neutrophils % 77 % Lymphocytes % 11 % Monocytes % 7 % Eosinophils % 3 % Basophils % 1 % Neutrophils # 8.2 H (1.3-7.7) k/uL Lymphocytes # 1.2 (1.0-4.8) k/uL Monocytes # 0.8 (0-1.0) k/uL Eosinophils # 0.3 (0-0.7) k/uL Basophils # 0.1 (0-0.2) k/uL Sodium 132 L (137-145) mmol/L Potassium 5.9 H (3.5-5.1) mmol/L Chloride 102 (98-107) mmol/L Carbon Dioxide 18 L (22-30) mmol/L Anion Gap 12 mmol/L BUN 27 H (9-20) mg/dL Creatinine 1.71 H (0.66-1.25) mg/dL Est GFR (CKD-EPI)AfAm 49 (>60 ml/min/1.73 sqM) Est GFR (CKD-EPI)NonAf 42 (>60 ml/min/1.73 sqM) Glucose 176 H (74-99) mg/dL POC Glucose (mg/dL) 172 H (75-99) mg/dL POC Glu Team Driver ID John Jensen Calcium 8.6 (8.4-10.2) mg/dL Magnesium 1.4 L (1.6-2.3) mg/dL Total Bilirubin 0.6 (0.2-1.3) mg/dL AST 24 (17-59) U/L ALT 16 (4-49) U/L Alkaline Phosphatase 125 (38-126) U/L Troponin I (0.000-0.034) ng/mL Total Protein 7.7 (6.3-8.2) g/dL Albumin 3.6 (3.5-5.0) g/dL Serum Alcohol <10 mg/dL 09/17/21 Range/Units 15:52 WBC (3.8-10.6) k/uL RBC (4.30-5.90) m/uL Hgb (13.0-17.5) gm/dL Hct (39.0-53.0) % MCV (80.0-100.0) fL MCH (25.0-35.0) pg MCHC (31.0-37.0) g/dL RDW (11.5-15.5) % Plt Count (150-450) k/uL MPV Neutrophils % % Lymphocytes % % Monocytes % % Eosinophils % % Basophils % % Neutrophils # (1.3-7.7) k/uL Lymphocytes # (1.0-4.8) k/uL Monocytes # (0-1.0) k/uL Eosinophils # (0-0.7) k/uL Basophils # (0-0.2) k/uL Sodium (137-145) mmol/L Potassium (3.5-5.1) mmol/L Chloride (98-107) mmol/L Carbon Dioxide (22-30) mmol/L Anion Gap mmol/L BUN (9-20) mg/dL Creatinine (0.66-1.25) mg/dL Est GFR (CKD-EPI)AfAm (>60 ml/min/1.73 sqM) Est GFR (CKD-EPI)NonAf (>60 ml/min/1.73 sqM) Glucose (74-99) mg/dL POC Glucose (mg/dL) (75-99) mg/dL POC Glu Team Driver ID Calcium (8.4-10.2) mg/dL Magnesium (1.6-2.3) mg/dL Total Bilirubin (0.2-1.3) mg/dL AST (17-59) U/L ALT (4-49) U/L Alkaline Phosphatase (38-126) U/L Troponin I <0.012 (0.000-0.034) ng/mL Total Protein (6.3-8.2) g/dL Albumin (3.5-5.0) g/dL Serum Alcohol mg/dL Disposition Clinical Impression: Hyperkalemia, Syncope, Acute kidney injury Disposition: ADMITTED IP TO THIS HOSP Condition: Fair Referrals: Anthony Potter [Primary Care Provider] - 1-2 days Decision Time: 18:01
[2021-09-17 15:58] LABS: Basophils # (A) 0.1 k/uL (0-0.2); Basophils % (A) 1 %; Eosinophils # (A) 0.3 k/uL (0-0.7); Eosinophils % (A) 3 %; HCT 38.1 % (39.0-53.0); HGB 12.2 gm/dL (13.0-17.5); Lymphocytes # (A) 1.2 k/uL (1.0-4.8); Lymphocytes % (A) 11 %; MCH 28.5 pg (25.0-35.0); MCV 88.9 fL (80.0-100.0); Mean Platelet Volume 7.2; Monocytes # (A) 0.8 k/uL (0-1.0); Monocytes % (A) 7 %; Neutrophils # (A) 8.2 k/uL (1.3-7.7); Neutrophils % (A) 77 %; Platelet Count 308 k/uL (150-450); RBC 4.28 m/uL (4.30-5.90); RDW 13.3 % (11.5-15.5); WBC 10.6 k/uL (3.8-10.6)
[2021-09-17 16:08] LABS: ALT 16 U/L (4-49); AST 24 U/L (17-59); African American GFR (CKD) 49 (>60 ml/min/1.73 sqM); Albumin 3.6 g/dL (3.5-5.0); Alcohol <10 mg/dL; Alkaline Phosphatase 125 U/L (38-126); Anion Gap 12 mmol/L; Blood Urea Nitrogen 27 mg/dL (9-20); Calcium 8.6 mg/dL (8.4-10.2); Carbon Dioxide 18 mmol/L (22-30); Chloride 102 mmol/L (98-107); Glucose 176 mg/dL (74-99); Magnesium 1.4 mg/dL (1.6-2.3); Non-African American GFR(CKD) 42 (>60 ml/min/1.73 sqM); Potassium 5.9 mmol/L (3.5-5.1); Sodium 132 mmol/L (137-145); Total Bilirubin 0.6 mg/dL (0.2-1.3); Total Protein 7.7 g/dL (6.3-8.2)
--- NOTE | 2021-09-17 16:17 | CT ---
EXAMINATION TYPE: CT brain roland ramos con DATE OF EXAM: 09/17/2021 COMPARISON: None HISTORY: 61-year-old male Syncope with fall. CT DLP: 1696 mGycm Automated exposure control for dose reduction was used. Technique: Examination of the head was done in axial plane without intravenous contrast. Coronal and sagittal reconstructions performed. CT of the cervical spine was obtained in axial plane without intravenous injection of contrast mater ial. Coronal and sagittal reformatted images were obtained from the axial views for evaluation of f ractures, spinal alignment and canal. FINDINGS: Head: There is no evidence of acute intracranial hemorrhage, acute ischemic changes, mass, mass-effect, or extra-axial fluid collection. There is no effacement of cerebral sulci or basal subarachnoid cister ns. There is no hydrocephalus. There is no midline shift. Atkinson-white matter distinction is preserv ed. Scalp contusion along the right parietal region. Underlying calvarial fracture. Mild patchy white matter hypodensities in both cervical hemispheres. Moderate lobulated mucosal thickening floors of the maxillary sinuses. Additional moderate pleural th ickening ethmoid air cells. Rightward nasal septal deviation. Orbits and globes are intact. Left mastoid air cells are somewhat hypoplastic. Moderate cerumen right external auditory canal. Cervical spine: Large dental caries involving right maxillary molars. 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 No craniocervical junction of the midbody, predental space widening, or prevertebral soft tissue swel ling. Degenerative grade 1 anterolisthesis C3-C4 and C7-T1. Grade 1 retrolisthesis C4-C5, and C6/C7. Remaining alignment is maintained though there is straightening of the normal cervical lordosis. Moderate degenerative disc disease. Disc osteophyte complexes likely contributed to mild spinal canal stenoses such as at C6/C7 and C4-C5. Assessment of the spinal canal limited from C5 and below due to artifact from the patient's shoulders. Multilevel hypertrophic facet and uncovertebral joint arthropathy is present. No acute fracture of the cervical spine. At C3-C4, moderate right neural foraminal stenosis. At C4-C5, moderate to severe left and moderate right neuroforaminal stenosis. At C6-C7, mild bilateral neural foraminal stenosis. Sagittal and coronal reformatted images confirm above findings. COMBINED IMPRESSION: 1. Moderate scalp contusion along the right parietal convexity. No underlying calvarial fracture or a cute intracranial abnormality seen. There is mild patchy burden of chronic small vessel ischemic dise ase. 2. No acute fracture of the cervical spine. Moderate to advanced multilevel spondylotic change with d egenerative grade 1 spondylolisthesis C3-C4, C4-C5, C6-C7, and C7-T1. 3. Incidental: Moderate chronic ethmoid and maxillary sinus disease. 4. 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 5. Incidental: Large dental caries involving the right maxillary molars.
--- NOTE | 2021-09-17 16:33 | XR ---
EXAMINATION TYPE: XR shoulder complete 3 views RT, XR humerus 2 views RT DATE OF EXAM: 09/17/2021 Comparison: Humerus 05/03/2021 and MRI 06/24/2021. Outside radiographs to 822 Clinical History: 61-year-old male syncope with fall Findings: Right shoulder: Particular osteopenia. Large erosions both the greater and lesser tuberosity noted. Moderate degenera tive change AC joint. No displaced fracture identified. Soft tissue swelling along the lateral aspect of the shoulder probably bruising and soft tissue contu karlee. Right humerus: No humeral shaft fracture seen. Elbow articulation grossly intact. IMPRESSION: 1. Right shoulder: Osteopenia and redemonstrated large erosions involving both lesser and greater tub erosities. Correlate for any known diagnosis such as an inflammatory arthropathy/rheumatoid arthritis . Septic arthritis considered less likely given that these findings were present to some extent even back to 06/24/2021. No displaced fracture. Moderate AC joint OA. Suspect development of bruising and soft tissue swelling along the lateral aspect of the shoulder. 2. Right humerus: No acute osseous abnormality seen of the more mid to distal humerus.
[2021-09-17] MEDS ORDERED: RX INFO: IV CONTRAST WAS GIVEN 1 EACH MISC MISCELLANE PRN (17:32)
[2021-09-17] MEDS ORDERED: SODIUM CHLORIDE 0.9% 1,000 ML IV STA (17:32)
[2021-09-17] MEDS ORDERED: SODIUM CHLORIDE 0.9% 500 ML 500 ML IV ONE (18:09)
--- NOTE | 2021-09-17 18:51 | CT ---
EXAMINATION TYPE: CT angio chest DATE OF EXAM: 09/17/2021 COMPARISON: None HISTORY: Syncope. History of thoracic aneurysm. CT DLP: 1451.2 mGycm Automated exposure control for dose reduction was used. CONTRAST: Performed without and with IV Contrast, patient injected with 80ml mL of Isovue 370. There are Three-D postprocessed images. There are some mild interstitial infiltrate in the mid and lower lung masterson. Heart is enlarged. Ther e is no pericardial effusion. There are no hilar masses. There is no mediastinal adenopathy. There is a 5 cm aneurysm of the ascending aorta. No dissection. There is no evidence of filling defect in the pulmonary arteries. There are cystic changes and erosio n in the right humeral head. IMPRESSION: No evidence of pulmonary embolism. Cardiomegaly. Mild interstitial pulmonary infiltrates could be dwight e pulmonary fibrosis. No pleural fluid seen to suggest heart failure. Thoracic aortic aneurysm. Changes in the right humeral head could relate to inflammatory arthritis. This appears new compared t o the old x-ray exam of 05/03/2021. Septic arthritis also possible.
[2021-09-17] MEDS ORDERED: cloNIDine HCL 0.2 MG TAB PO PRN (19:55)
[2021-09-17 20:54] LABS: Glucose,Whole Blood 260 mg/dL (75-99)
[2021-09-17] MEDS: INSULIN ASPART (NovoLOG) 100 UNIT/ML VIAL SQ SCH (22:12)
[2021-09-18 00:17] LABS: Appearance,Urine Cloudy (Clear); Bacteria,Urine Few /hpf; Bilirubin,Urine Negative (Negative); Blood,Urine Small (Negative); Budding Yeast,Urine Few /hpf; Color,Urine Yellow; Glucose,Urine (UA) Negative (Negative); Hyaline Casts,Urine 7 /lpf (0-2); Ketones,Urine Negative (Negative); Leukocyte Esterase,Urine Large (Negative); Mucus,Urine Rare /hpf; Nitrite,Urine Positive (Negative); PH, Urine 5.5 (5.0-8.0); Protein,Urine 2+ (Negative); RBC,Urine 11 /hpf (0-5); Specific Gravity,Urine 1.042 (1.001-1.035); Squamous Epithelial Cell,Urine <1 /hpf (0-4); Urobilinogen,Urine <2.0 mg/dL (<2.0); WBC,Urine >182 /hpf (0-5)
[2021-09-18 00:20] LABS: Amphetamine Screen,Urine Not Detected (NotDetected); Barbiturate Screen,Urine Not Detected (NotDetected); Benzodiazepines Screen,Urine Not Detected (NotDetected); Cocaine Screen,Urine Not Detected (NotDetected); Methadone Screen, Urine Not Detected (NotDetected); Opiate Screen,Urine Not Detected (NotDetected); Oxycodone Screen, Urine Not Detected (NotDetected); Phencyclidine Screen,Urine Not Detected (NotDetected); Tricyclic Antidepressant,Urine Not Detected (NotDetected); Urn Cannabinoid Scrn Not Detected (NotDetected)
[2021-09-18] MEDS ORDERED: HYDROcodone/APAP 7.5-325MG 1 EACH TAB PO PRN (04:08)
--- NOTE | 2021-09-18 04:35 | P.HPIM ---
History of Present Illness H&P Date: 09/17/21 Chief Complaint: Syncope 61-year-old male with diabetes mellitus hypertension Patient comes in after having 2 episodes of syncope. while playing cards, after the second one he woke up on the floor , with pain in his shoulder . he was laying on his right side. this has never happened before. he denies any associated dizziness lightheadedness, denies any loss of bladder or bowel control with these episodes , no witnessed tonic clonic jerks. he felt fine after waking up from the episode, denies any changes in his medications. he does report having some cold symptoms over the past few days, mainly coughing, but denies any nausea , vomiting, diarrhea, muscle aches, sore throat, fever, or chills. he is vaccinated against covid and booster with moderna. he feels fine at time of interview. and denies any medical concerns in the ED CTA of chest performed, and was negative for PE, no d-dimer was done, CTA showed mild infiltrates or fibrosis , ascending thoracic aortic aneurysm of 4.2 cm and inflammatory arthritis of the right shoulder CT head showed moderate scalp contusion over the right parietal convexity , no fractures. blood work showed hyperkalemia , EMERITA, and hypomagnesemia trops were negative COVID positive Review of Systems Pertinent positives as noted in HPI. All other systems were reviewed and are negative Past Medical History Past Medical History: Diabetes Mellitus, Hypertension History of Any Multi-Drug Resistant Organisms: None Reported Past Surgical History: Cholecystectomy Additional Past Surgical History / Comment(s): march 2018 left 5th toe amputation, cataract surgery and retina repair Past Anesthesia/Blood Transfusion Reactions: No Reported Reaction Past Psychological History: No Psychological Hx Reported Smoking Status: Never smoker Past Alcohol Use History: None Reported Past Drug Use History: None Reported - Past Family History Father Family Medical History: AFIB, Hypertension Mother Family Medical History: Rheumatoid Arthritis (RA) Medications and Allergies Home Medications Medication Instructions Recorded Confirmed Type glipiZIDE [Glucotrol] 5 mg PO AC-BID 04/02/18 09/17/21 History Brimonidine Tartrate/Timolol 1 drop BOTH EYES BID 02/26/21 09/17/21 History [Combigan 0.2%-0.5% Eye Drops] Latanoprost [Xalatan 0.005%] 1 drop BOTH EYES HS 02/26/21 09/17/21 History metFORMIN HCL [Glucophage] 1,000 mg PO BID 02/26/21 09/17/21 History Losartan Potassium 100 mg PO DAILY 09/17/21 09/17/21 History Allergies Allergy/AdvReac Type Severity Reaction Status Date / Time No Known Allergies Allergy Verified 09/17/21 17:22 Physical Exam Vitals: Vital Signs Temp Pulse Pulse Resp BP BP Pulse Ox 09/17/21 20:00 72 18 09/17/21 19:52 97.6 F 72 18 177/76 99 09/17/21 18:33 71 18 136/85 99 09/17/21 16:32 71 18 126/71 99 09/17/21 14:56 98.1 F 74 18 111/67 94 L Intake and Output 09/17/21 09/17/21 09/18/21 14:59 22:59 06:59 Other: Voiding Method Toilet # Voids 1 Weight 104.326 kg 104.326 kg Constitutional: No acute distress, conversant, pleasant Eyes: Anicteric sclerae, moist conjunctiva, Pupils equal round reactive to light ENMT: Oropharynx clear, no erythema, or exudates Neck: Supple, no masses, or JVD No carotid bruits No thyromegaly Lungs: Clear to auscultation Clear to percussion Normal respiratory effort, no accessory muscle use Cardiovascular: Heart regular in rate and rhythm, No murmurs, gallops, or rubs No peripheral edema Abdominal: Soft Nontender, no guarding, rebound or rigidity Abdomen moving with respiration Normoactive bowel sounds No hepatomegaly, No splenomegaly No palpable mass No abdominal wall hernia noted Skin: Normal temperature, tone, texture, turgor No induration No subcutaneous nodules No rash, lesions No ulcers Extremities: No digital cyanosis No clubbing Pedal pulses intact and symmetrical Radial pulses intact and symmetrical No calf tenderness Psychiatric: Alert and oriented to person, place and time Appropriate affect fair judgement Neuro Muscles Strength 5/5 in all 4 extremities Sensation to light touch grossly present throughout Cranial nerves II-XII grossly intact No focal sensory deficits Lymphatics: no palpable cervical or supraclavicular , or inguinal lymph nodes Results CBC & Chem 7: 09/17/21 15:52 09/17/21 15:52 Labs: Abnormal Lab Results - Last 24 Hours (Table) 09/17/21 09/17/21 09/17/21 Range/Units 15:16 15:52 15:52 RBC 4.28 L (4.30-5.90) m/uL Hgb 12.2 L (13.0-17.5) gm/dL Hct 38.1 L (39.0-53.0) % Neutrophils # 8.2 H (1.3-7.7) k/uL Sodium 132 L (137-145) mmol/L Potassium 5.9 H (3.5-5.1) mmol/L Carbon Dioxide 18 L (22-30) mmol/L BUN 27 H (9-20) mg/dL Creatinine 1.71 H (0.66-1.25) mg/dL Glucose 176 H (74-99) mg/dL POC Glucose (mg/dL) 172 H (75-99) mg/dL Magnesium 1.4 L (1.6-2.3) mg/dL Ur Specific [place] (1.001-1.035) Urine Protein (Negative) Urine Blood (Negative) Ur Leukocyte Esterase (Negative) Urine RBC (0-5) /hpf Urine WBC (0-5) /hpf Urine WBC Clumps (None) /hpf Urine Bacteria (None) /hpf Hyaline Casts (0-2) /lpf Urine Mucus (None) /hpf Urine Yeast (Budding) (None) /hpf Coronavirus (PCR) (Not Detectd) 09/17/21 09/17/21 09/17/21 Range/Units 18:35 20:52 23:37 RBC (4.30-5.90) m/uL Hgb (13.0-17.5) gm/dL Hct (39.0-53.0) % Neutrophils # (1.3-7.7) k/uL Sodium (137-145) mmol/L Potassium (3.5-5.1) mmol/L Carbon Dioxide (22-30) mmol/L BUN (9-20) mg/dL Creatinine (0.66-1.25) mg/dL Glucose (74-99) mg/dL POC Glucose (mg/dL) 260 H (75-99) mg/dL Magnesium (1.6-2.3) mg/dL Ur Specific [place] 1.042 H (1.001-1.035) Urine Protein 2+ H (Negative) Urine Blood Small H (Negative) Ur Leukocyte Esterase Large H (Negative) Urine RBC 11 H (0-5) /hpf Urine WBC >182 H (0-5) /hpf Urine WBC Clumps Few H (None) /hpf Urine Bacteria Few H (None) /hpf Hyaline Casts 7 H (0-2) /lpf Urine Mucus Rare H (None) /hpf Urine Yeast (Budding) Few H (None) /hpf Coronavirus (PCR) Detected A (Not Detectd) Thrombosis Risk Factor Assmnt - Choose All That Apply Each Risk Factor Represents 2 Points: Age 61-74 years Thrombosis Risk Factor Assessment Total Risk Factor Score: 2 Thrombosis Risk Factor Assessment Level: Low Risk Assessment and Plan Assessment: 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 echocardiogram monitor vital signs fall precautions orthostatic vitals CT brain noted , no acute pathology intracranially EMERITA hyperkalemia monitor K level IVF hydration with normal saline avoid nephro toxic meds monitor urine output COVID positive mild cough not requiring oxygen CTA no acute PE continue with supportive care monitor oxygen requirement patient vaccinated fully contact and droplet precautions incidental findings of thoracic aortic aneurysm cardiology eval and echocardiogram Diabetes mellitus with A1c of 8.3 insulin sliding scale hypertension Continue with blood pressure medications Right shoulder pain with supraspinatus tendon injury norco PRN full code heparin sc tid for dvt ppx anticipated length of stay << 2 midnights
[2021-09-18 06:57] LABS: Glucose,Whole Blood 115 mg/dL (75-99)
[2021-09-18] MEDS: INSULIN ASPART (NovoLOG) 100 UNIT/ML VIAL SQ SCH ×4 (07:50→21:26)
[2021-09-18 09:23] LABS: Albumin 3.4 g/dL (3.8-4.9); Albumin/Globulin Ratio 0.92 (1.60-3.17); BUN/Creat Ratio 19.49 Ratio (12.00-20.00); Blood Urea Nitrogen 30.6 mg/dL (9.0-27.0); Calcium 8.7 mg/dL (8.7-10.3); Carbon Dioxide 19.6 mmol/L (20.0-27.5); Globulin 3.7 g/dL (1.6-3.3); Magnesium 1.7 mg/dL (1.5-2.4); Non-African American GFR(CKD) 46.6 (60.0-200.0); Potassium 4.9 mmol/L (3.5-5.5); Total Bilirubin 0.2 mg/dL (0.30-1.20); Total Protein 7.2 g/dL (6.2-8.2)
[2021-09-18] MEDS: HEPARIN SODIUM,PORCINE/PF 5,000 UNIT/0.5 ML SYRINGE SQ SCH ×3 (09:24→21:26)
[2021-09-18 11:45] LABS: Glucose,Whole Blood 211 mg/dL (75-99)
--- NOTE | 2021-09-18 14:27 | P.PN ---
Subjective Progress Note Date: 09/18/21 Pt has no new complaints today, feels back to baseline. Shoulder still quite painful. 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 echocardiogram, pending monitor vital signs fall precautions orthostatic vitals CT brain noted , no acute pathology intracranially EMERITA hyperkalemia monitor K level IVF hydration with normal saline avoid nephro toxic meds monitor urine output COVID positive mild cough not requiring oxygen CTA no acute PE continue with supportive care monitor oxygen requirement patient vaccinated fully contact and droplet precautions incidental findings of thoracic aortic aneurysm cardiology eval and echocardiogram Diabetes mellitus with A1c of 8.3 insulin sliding scale hypertension Continue with blood pressure medications Right shoulder pain with supraspinatus tendon injury norco PRN CTA of chest showed what appeared to be inflammatory changes in the shoulder joint full code heparin sc tid for dvt ppx anticipated length of stay << 2 midnights Objective - Vital Signs Vital signs: Vital Signs Temp 98.3 F 09/18/21 07:00 Pulse 79 09/18/21 08:00 Resp 20 09/18/21 08:00 BP 119/71 09/18/21 07:00 Pulse Ox 97 09/18/21 07:00 Intake & Output 09/17/21 09/18/21 09/18/21 18:59 06:59 18:59 Intake Total 236 Balance 236 Weight 104.326 kg 104.326 kg Intake: Oral 236 Other: Voiding Method Toilet Toilet # Voids 1 3 # Bowel Movements 0 - Labs CBC & Chem 7: 09/17/21 15:52 09/18/21 04:43 Labs: Abnormal Lab Results - Last 24 Hours (Table) 09/17/21 09/17/21 09/17/21 Range/Units 15:16 15:52 15:52 RBC 4.28 L (4.30-5.90) m/uL Hgb 12.2 L (13.0-17.5) gm/dL Hct 38.1 L (39.0-53.0) % Neutrophils # 8.2 H (1.3-7.7) k/uL Sodium 132 L (137-145) mmol/L Potassium 5.9 H (3.5-5.1) mmol/L Carbon Dioxide 18 L (22-30) mmol/L BUN 27 H (9-20) mg/dL Creatinine 1.71 H (0.66-1.25) mg/dL Est GFR (CKD-EPI)AfAm (60.0-200.0) Est GFR (CKD-EPI)NonAf (60.0-200.0) Glucose 176 H (74-99) mg/dL POC Glucose (mg/dL) 172 H (75-99) mg/dL Magnesium 1.4 L (1.6-2.3) mg/dL Total Bilirubin (0.30-1.20) mg/dL Albumin (3.8-4.9) g/dL Globulin (1.6-3.3) g/dL Albumin/Globulin Ratio (1.60-3.17) g/dL Ur Specific [place] (1.001-1.035) Urine Protein (Negative) Urine Blood (Negative) Ur Leukocyte Esterase (Negative) Urine RBC (0-5) /hpf Urine WBC (0-5) /hpf Urine WBC Clumps (None) /hpf Urine Bacteria (None) /hpf Hyaline Casts (0-2) /lpf Urine Mucus (None) /hpf Urine Yeast (Budding) (None) /hpf Coronavirus (PCR) (Not Detectd) 09/17/21 09/17/21 09/17/21 Range/Units 18:35 20:52 23:37 RBC (4.30-5.90) m/uL Hgb (13.0-17.5) gm/dL Hct (39.0-53.0) % Neutrophils # (1.3-7.7) k/uL Sodium (137-145) mmol/L Potassium (3.5-5.1) mmol/L Carbon Dioxide (22-30) mmol/L BUN (9-20) mg/dL Creatinine (0.66-1.25) mg/dL Est GFR (CKD-EPI)AfAm (60.0-200.0) Est GFR (CKD-EPI)NonAf (60.0-200.0) Glucose (74-99) mg/dL POC Glucose (mg/dL) 260 H (75-99) mg/dL Magnesium (1.6-2.3) mg/dL Total Bilirubin (0.30-1.20) mg/dL Albumin (3.8-4.9) g/dL Globulin (1.6-3.3) g/dL Albumin/Globulin Ratio (1.60-3.17) g/dL Ur Specific [place] 1.042 H (1.001-1.035) Urine Protein 2+ H (Negative) Urine Blood Small H (Negative) Ur Leukocyte Esterase Large H (Negative) Urine RBC 11 H (0-5) /hpf Urine WBC >182 H (0-5) /hpf Urine WBC Clumps Few H (None) /hpf Urine Bacteria Few H (None) /hpf Hyaline Casts 7 H (0-2) /lpf Urine Mucus Rare H (None) /hpf Urine Yeast (Budding) Few H (None) /hpf Coronavirus (PCR) Detected A (Not Detectd) 09/18/21 09/18/21 09/18/21 Range/Units 04:43 06:56 11:42 RBC (4.30-5.90) m/uL Hgb (13.0-17.5) gm/dL Hct (39.0-53.0) % Neutrophils # (1.3-7.7) k/uL Sodium 134 L (137-145) mmol/L Potassium (3.5-5.1) mmol/L Carbon Dioxide 19.6 L (22-30) mmol/L BUN 30.6 H (9-20) mg/dL Creatinine 1.6 H (0.66-1.25) mg/dL Est GFR (CKD-EPI)AfAm 54.0 L (60.0-200.0) Est GFR (CKD-EPI)NonAf 46.6 L (60.0-200.0) Glucose (74-99) mg/dL POC Glucose (mg/dL) 115 H 211 H (75-99) mg/dL Magnesium (1.6-2.3) mg/dL Total Bilirubin 0.20 L (0.30-1.20) mg/dL Albumin 3.4 L (3.8-4.9) g/dL Globulin 3.7 H (1.6-3.3) g/dL Albumin/Globulin Ratio 0.92 L (1.60-3.17) g/dL Ur Specific [place] (1.001-1.035) Urine Protein (Negative) Urine Blood (Negative) Ur Leukocyte Esterase (Negative) Urine RBC (0-5) /hpf Urine WBC (0-5) /hpf Urine WBC Clumps (None) /hpf Urine Bacteria (None) /hpf Hyaline Casts (0-2) /lpf Urine Mucus (None) /hpf Urine Yeast (Budding) (None) /hpf Coronavirus (PCR) (Not Detectd) Microbiology - Last 24 Hours (Table) 09/17/21 23:37 Urine Culture - Preliminary Urine,Voided
[2021-09-18 16:46] LABS: Glucose,Whole Blood 211 mg/dL (75-99)
--- NOTE | 2021-09-18 20:16 | ECHOF ---
Referral Reason:syncope MEASUREMENTS -------- HEIGHT: 152.4 cm WEIGHT: 104.3 kg BP: RVIDd: 3.6 cm (< 3.3) IVSd: 1.6 cm (0.6 - 1.1) LVIDd: 6.0 cm (3.9 - 5.3) LVPWd: 1.4 cm (0.6 - 1.1) IVSs: 1.9 cm LVIDs: 3.6 cm LVPWs: 1.5 cm LA Diam: 4.2 cm (2.7 - 3.8) Ao Diam: 3.8 cm (2.0 - 3.7) AV Cusp: 1.7 cm (1.5 - 2.6) LA Diam: 4.2 cm (2.7 - 3.8) MV EXCURSION: 20.576 mm (> 18.000) MV EF SLOPE: 55 mm/s (70 - 150) EPSS: 0.2 cm FINDINGS -------- Sinus rhythm. Limited Echo due to Covid-19 protocol. The left ventricular size is normal. There is moderate concentric left ventricular hypertrophy. O verall left ventricular systolic function is low-normal with, an EF between 50 - 55 %. The right ventricle is mildly enlarged. The left atrial size is normal. The right atrial size is normal. There is no pericardial effusion. CONCLUSIONS -------- 1. Sinus rhythm. 2. Limited Echo due to Covid-19 protocol. 3. The left ventricular size is normal. 4. There is moderate concentric left ventricular hypertrophy. 5. Overall left ventricular systolic function is low-normal with, an EF between 50 - 55 %. 6. The right ventricle is mildly enlarged. 7. The left atrial size is normal. 8. The right atrial size is normal. 9. There is no pericardial effusion. MASTICATOR: Luz Marina Victor RDCS
[2021-09-18 21:04] LABS: Glucose,Whole Blood 197 mg/dL (75-99)
[2021-09-19 07:06] LABS: Glucose,Whole Blood 97 mg/dL (75-99)
[2021-09-19 07:25] VITALS: BP 151/79; PULSE 70; RESP 20; TEMP 99.1
[2021-09-19] MEDS: INSULIN ASPART (NovoLOG) 100 UNIT/ML VIAL SQ SCH ×2 (09:44→12:27)
[2021-09-19] MEDS: HEPARIN SODIUM,PORCINE/PF 5,000 UNIT/0.5 ML SYRINGE SQ SCH (09:51)
--- NOTE | 2021-09-19 11:22 | P.CNOR ---
History of Present Illness - [facility] Consult date: 09/19/21 Consult reason: joint pain (Right shoulder pain) History of present illness: Patient is a 61-year-old male who was admitted to [facility] a few days ago after a syncopal episode. Since being admitted, he did test positive for COVID-19. During the fall he did hit the right shoulder, our orthopedic team was consulted for this. He is also being followed by cardiology at this time and a workup is pending. Patient was evaluated today at bedside, he is resting comfortably. He's had chronic issues with his right shoulder. He states that he is actually scheduled for a procedure with Dr. Street in the coming weeks for the right shoulder. He states he's had previous falls on the shoulder over the last year or so. He has very limited range of motion with the shoulder. Since this most recent fall it is exacerbated his symptoms. He has a difficult time with range of motion of the shoulder and it is quite painful. He denies any elbow pain, hand or wrist pain. He has no other orthopedic complaints at this time. Review of Systems Constitutional: Reports as per HPI Past Medical History Past Medical History: Diabetes Mellitus, Hypertension History of Any Multi-Drug Resistant Organisms: None Reported Past Surgical History: Cholecystectomy Additional Past Surgical History / Comment(s): march 2018 left 5th toe amputation, cataract surgery and retina repair Past Anesthesia/Blood Transfusion Reactions: No Reported Reaction Past Psychological History: No Psychological Hx Reported Smoking Status: Never smoker Past Alcohol Use History: None Reported Past Drug Use History: None Reported - Past Family History Father Family Medical History: AFIB, Hypertension Mother Family Medical History: Rheumatoid Arthritis (RA) Medications and Allergies Home Medications Medication Instructions Recorded Confirmed Type glipiZIDE [Glucotrol] 5 mg PO AC-BID 04/02/18 09/17/21 History Brimonidine Tartrate/Timolol 1 drop BOTH EYES BID 02/26/21 09/17/21 History [Combigan 0.2%-0.5% Eye Drops] Latanoprost [Xalatan 0.005%] 1 drop BOTH EYES HS 02/26/21 09/17/21 History metFORMIN HCL [Glucophage] 1,000 mg PO BID 02/26/21 09/17/21 History Losartan Potassium 100 mg PO DAILY 09/17/21 09/17/21 History Allergies Allergy/AdvReac Type Severity Reaction Status Date / Time No Known Allergies Allergy Verified 09/17/21 17:22 Physical Examination Right upper extremity: Mild soft tissue swelling present over the anterior and lateral aspect of the shoulder, there is no areas of erythema there is no open lesions, there is no areas of fluctuance He demonstrates tenderness with palpation to the lateral aspect of the shoulder and also glenohumeral joint line. Patient is nontender with palpation of the lower arm, elbow, forearm, hand or wrist. He demonstrates adequate range of motion with extension and flexion at the wrist and elbow. He is able wiggle all the fingers and make a fist with no difficulty. Range of motion of the shoulder was very limited due to pain. Sensation to light touch is intact throughout the extremity, no focal neurological deficits. The skin is warm to touch, his radial and ulnar pulses are 2+ Results - Labs Labs: Abnormal Lab Results - Last 24 Hours (Table) 09/18/21 09/18/21 09/18/21 Range/Units 11:42 16:45 21:03 POC Glucose (mg/dL) 211 H 211 H 197 H (75-99) mg/dL Microbiology - Last 24 Hours (Table) 09/17/21 23:37 Urine Culture - Preliminary Urine,Voided H & H 09/17/21 Range/Units 15:52 Hgb 12.2 L (13.0-17.5) gm/dL Hct 38.1 L (39.0-53.0) % Result Diagrams: 09/17/21 15:52 09/18/21 04:43 - Diagnostic results Shoulder x-ray: report reviewed, image reviewed (X-rays were reviewed of the right shoulder. No acute fractures or dislocations. Moderate acromioclavicular joint arthritis noted. Cortical breakdown noted in the greater tuberosity) Assessment and Plan Assessment: Right shoulder pain Right shoulder acromioclavicular joint arthritis Right shoulder rotator cuff pathology Other medical comorbidities Plan: I was able to discuss the case, including the physical exam findings and imaging studies my attending Dr. Hooker. No emergent orthopedic surgical intervention recommended. Discussed conservative management at this time, this to include anti- inflammatories along with resting of the shoulder. Patient advised to follow-up with Dr. Street in the next week or so to discuss treatment options. I would anticipate that his surgery may be postponed due to his most recent syncopal episode and cardiac workup that is currently pending. Recommended use of anti-inflammatories/Tylenol. If this does not control pain, recommend contacting our office to discuss other options. Other medical specialty recommendations Plan for follow-up in the outpatient setting in the next 7-10 days Time with Patient: Less than 30
[2021-09-19 12:24] LABS: Glucose,Whole Blood 118 mg/dL (75-99)
--- NOTE | 2021-09-19 13:26 | P.DS ---
Providers Date of admission: 09/17/21 17:34 Expected date of discharge: 09/19/21 Attending physician: Rodger Boswell MD Consults: 09/18/21 04:36 Consult Physician Routine Consulting Provider: Joseph White Consult Reason/Comments: aortic aneurysm , syncope Do you want consulting provider notified?: Yes, Notify in am 09/18/21 09:38 Consult Physician Routine Consulting Provider: Ras Sauceda Consult Reason/Comments: right shoulder imflammation Do you want consulting provider notified?: Yes Primary care physician: [facility] Course: 61-year-old male with diabetes mellitus hypertension presented with 2 episodes of syncope as well as with pain in his right shoulder. In the ED CTA of chest performed, and was negative for PE, no d-dimer was done, CTA showed mild infiltrates or fibrosis, ascending thoracic aortic aneurysm of 4.2 cm and inflammatory arthritis of the right shoulder. CT head showed moderate scalp contusion over the right parietal convexity , no fractures. Blood work showed hyperkalemia , EMERITA, and hypomagnesemia. Trops were negative and remained so. COVID was positive. 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 cardiology eval completed and patient cleared. echocardiogram showed EF 50-55%, RVE, no diastolic dysfunction, no WMA No further episodes of syncope EMERITA hyperkalemia monitored K level. Provided IVF hydration with normal saline resolved EMERITA avoid nephro toxic meds monitor urine output COVID positive supportive care provided incidental findings of thoracic aortic aneurysm cardiology eval and echocardiogram noted above Diabetes mellitus with A1c of 8.3 hypertension Right shoulder pain with supraspinatus tendon injury Ortho surgery consulted, and recommended outpatient follow up and pain control Gen: awake, alert HEENT: normocephalic, atraumatic, good hearing acuity, moist mucous membranes Resp: good air exchange, breathing comfortably with no accessory muscle use CVS: good distal perfusion x 4, GI: soft, NTTP, ND : no SPT, no CVAT, briceno catheter not present MSK: no pitting edema, no clubbing Neuro: non-focal, moving all extremities Psych: cooperative, euthymic mood Patient Condition at Discharge: Good Plan - Discharge Summary Discharge Rx Participant: No New Discharge Prescriptions: New Acetaminophen Tab [Tylenol] 650 mg PO Q4H #30 tab Continue glipiZIDE [Glucotrol] 5 mg PO AC-BID metFORMIN HCL [Glucophage] 1,000 mg PO BID Latanoprost [Xalatan 0.005%] 1 drop BOTH EYES HS Losartan Potassium 100 mg PO DAILY Brimonidine Tartrate/Timolol [Combigan 0.2%-0.5% Eye Drops] 1 drop BOTH EYES BID Discharge Medication List glipiZIDE [Glucotrol] 5 mg PO AC-BID 04/02/18 [History] Brimonidine Tartrate/Timolol [Combigan 0.2%-0.5% Eye Drops] 1 drop BOTH EYES BID 02/26/21 [History] Latanoprost [Xalatan 0.005%] 1 drop BOTH EYES HS 02/26/21 [History] metFORMIN HCL [Glucophage] 1,000 mg PO BID 02/26/21 [History] Losartan Potassium 100 mg PO DAILY 09/17/21 [History] Acetaminophen Tab [Tylenol] 650 mg PO Q4H #30 tab 09/19/21 [Rx] Follow up Appointment(s)/Referral(s): Anthony Potter [Primary Care Provider] - 1-2 days Discharge Disposition: HOME SELF-CARE
--- NOTE | 2021-09-19 15:27 | P.CRDCN ---
History of Present Illness Consult date: 09/19/21 History of present illness: HISTORY OF PRESENT ILLNESS This is a 61-year-old male patient with past medical history of diabetes mellitus type 2, hypertension, glaucoma, diabetic complications including the fifth toe amputation, previous visits to the wound healing center for left foot ulcer. 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 Patient gives history that he had 2 syncopal episodes while playing cards and the second time he ended up on the floor. He denies having a chest pain or shortness of breath. He states on Monday morning he woke up and had a little cold symptoms with cough. He gives history that his PCP recently increase his losartan to 100 mg a day approximately 4 weeks ago. He is also scheduled for right shoulder surgery with Dr. Street on 09/29. He denies any recent medication changes. He has had syncopal episodes in the past 15 years ago when he was working in [place] and was diagnosed with heat stroke at that time. Hemoglobin 12.2 otherwise CBC unremarkable. Sodium 132, potassium 5.9 with repeat of 4.9. CO2 18 and repeat 19.6. BUN 20 7 repeat 30. Creatinine 1. 7 repeat 1.6. Blood sugar 260. Magnesium 1.4. Liver function tests were normal. Troponin negative 1. Urinalysis revealed leukoesterase large, RBCs 11, wbc's greater than 182, urine drug screen negative, serum alcohol level less than 10. Carotid virus PCR detected. CT angiogram of the chest reveals no evidence of pulmonary embolism. Cardiomegaly. Mild interstitial pulmonary infiltrates could be some pulmonary fibrosis. No pleural fluid seen to suggest heart failure. Thoracic aortic aneurysm. Changes on the right humeral head related to inflammatory arthritis. 5 cm aneurysm of the ascending aorta. CAT scan of the brain and cervical spine revealed moderate scalp contusion the right parietal convexity. No underlying fracture or acute intracranial abnormality. No acute fracture of the cervical spine. Moderate to advanced multilevel spondylotic change with degenerative grade 1 spondylolisthesis. Moderate chronic ethmoid and maxillary sinus disease. 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 Large dental caries involving the right maxillary molars. Echocardiogram reveals EF of 50-55%. X-ray of the right shoulder reveals osteopenia, large erosions of the lesser and greater tuberosities. We have been asked to see the patient regarding thoracic aortic aneurysm. Patient has a brother with history of aneurysm in his chest and is monitored. He is a non-smoker. Films reviewed by Dr. Leija, 4.85 centimeter ascending aortic aneurysm. REVIEW OF SYSTEMS Constitutional: No fever, no chills. No weakness, fatigue or lethargy. EENT: No headache. No dizziness. Lungs: No shortness of breath, cough, no sputum production. No wheezing. Cardiovascular: No chest pain, no lower extremity edema. No palpitations. No paroxysmal nocturnal dyspnea. No orthopnea. No lightheadedness or dizziness. Reported to syncopal episodes. Abdominal: No abdominal pain. No nausea, vomiting. No diarrhea. No constipation. No bloody or tarry stools.. No loss of appetite. Genitourinary: No dysuria.. No urinary retention. Musculoskeletal: No myalgias. No muscle weakness, no gait dysfunction, no frequent falls. No back pain. No neck pain. Integumentary: No wounds, no lesions. No rash or pruritus. No unusual bruising. Neurologic: No aphasia. No facial droop. No change in mentation. No head injury. No headache. No paralysis. No paresthesia. Psychiatric: No depression. No anxiety. Endocrine: No abnormal blood sugars. PHYSICAL EXAMINATION Gen: This is a a 61-year-old male patient sitting up in a recliner appears to be comfortable and in no acute distress. VS reviewed HEENT: Head is atraumatic, normocephalic. Pupils equal, round. Sclerae is anicteric. NECK: Supple. No JVD. No lymphadenopathy. No thyromegaly. LUNGS: Clear to auscultation. No wheezes or rhonchi. No intercostal retractions. HEART: Regular rate and rhythm. No murmur. ABDOMEN: Soft. Bowel sounds are present. No masses. No tenderness. EXTREMITIES: No pedal edema. No calf tenderness. NEUROLOGICAL: Patient is awake, alert and oriented x3. Cranial nerves 2 through 12 are grossly intact. ASSESSMENT Thoracic aortic aneurysm read out as 5.0 cm on radiology report. Measured at 4.7 x 4.8cm on personal review. Syncopal episode of unclear etiology Diabetes mellitus type 2 Hypertension Glaucoma Diabetic foot ulcer COVID 19 PLAN Patient with syncopal episode of unclear etiology. Do not feel thoracic aortic aneurysm is related and this should be monitored as an outpatient. No current indication for surgery. Echo shows preserved ejection fraction without significant valvular disease. Incidental COVID-19 infection which may have exacerbated syncopal episode. Would recommend 30 day event monitor as an outpatient. Patient is cleared for discharge Follow-up in the office for cardiac monitoring outpatient Thank you kindly for this consultation. Nurse practitioner note has been reviewed, I agree with documented findings and plan of care. Patient was seen and examined. Past Medical History Past Medical History: Diabetes Mellitus, Hypertension History of Any Multi-Drug Resistant Organisms: None Reported Past Surgical History: Cholecystectomy Additional Past Surgical History / Comment(s): march 2018 left 5th toe amputation, cataract surgery and retina repair Past Anesthesia/Blood Transfusion Reactions: No Reported Reaction Past Psychological History: No Psychological Hx Reported Smoking Status: Never smoker Past Alcohol Use History: None Reported Past Drug Use History: None Reported - Past Family History Father Family Medical History: AFIB, Hypertension Mother Family Medical History: Rheumatoid Arthritis (RA) Medications and Allergies Home Medications Medication Instructions Recorded Confirmed Type glipiZIDE [Glucotrol] 5 mg PO AC-BID 04/02/18 09/17/21 History Brimonidine Tartrate/Timolol 1 drop BOTH EYES BID 02/26/21 09/17/21 History [Combigan 0.2%-0.5% Eye Drops] Latanoprost [Xalatan 0.005%] 1 drop BOTH EYES HS 02/26/21 09/17/21 History metFORMIN HCL [Glucophage] 1,000 mg PO BID 02/26/21 09/17/21 History Losartan Potassium 100 mg PO DAILY 09/17/21 09/17/21 History Acetaminophen Tab [Tylenol] 650 mg PO Q4H #30 tab 09/19/21 Rx Allergies Allergy/AdvReac Type Severity Reaction Status Date / Time No Known Allergies Allergy Verified 09/17/21 17:22 Physical Exam Vitals: Vital Signs Temp Pulse Resp BP Pulse Ox 09/19/21 07:00 99.1 F 70 20 151/79 97 09/19/21 02:42 97.4 F L 65 18 126/76 95 09/18/21 20:00 67 18 09/18/21 19:33 97.5 F L 67 17 137/77 98 09/18/21 15:00 98.0 F 71 18 157/84 97 09/18/21 14:00 71 18 Intake and Output 09/18/21 09/19/21 09/19/21 22:59 06:59 14:59 Intake Total 118 118 Balance 118 118 Intake: Oral 118 118 Other: # Voids 1 Results 09/17/21 15:52 09/18/21 04:43 Current Medications Generic Name Dose Route Start Last Admin Trade Name Freq PRN Reason Stop Dose Admin Hydrocodone Bitart/Acetaminophen 1 each 09/18/21 04:08 09/19/21 00:04 Hydrocodone/Apap 7.5-325mg 1 Each Tab PO 1 each Q6HR PRN Administration Pain Clonidine 0.2 mg 09/17/21 19:55 Clonidine Hcl 0.2 Mg Tab PO QID PRN Blood Pressure - High Heparin Sodium (Porcine) 5,000 unit 09/18/21 08:00 09/18/21 21:26 Heparin Sodium,Porcine/Pf 5,000 Unit/0.5 Ml Syringe SQ 5,000 unit Q8HR [place] Administration Insulin Aspart 0 unit 09/17/21 21:00 09/18/21 21:26 Insulin Aspart (Novolog) 100 Unit/Ml Vial SQ 2 unit ACHS [place] Administration Protocol Miscellaneous Information 1 each 09/17/21 17:32 Rx Info: Iv Contrast Was Given 1 Each Misc MISCELLANE 09/19/21 17:33 DAILY PRN Per Protocol Intake and Output 09/18/21 09/19/21 09/19/21 22:59 06:59 14:59 Intake Total 118 118 Balance 118 118 Intake: Oral 118 118 Other: # Voids 1 09/17/21 15:52 09/18/21 04:43
== END 2021-09-19 14:07 | disposition home or self-care (01) ==
LOC: EC 14:50 → 6NMEDSUR 17:34
PROVIDERS: ADMIT Internal Medicine; ATTEND Internal Medicine
DX: R55 Syncope and collapse (principal); E87.5 Hyperkalemia; N17.9 Acute kidney failure, unspecified; E83.42 Hypomagnesemia; U07.1 COVID-19; J00 Acute nasopharyngitis [common cold]; I71.2 Thoracic aortic aneurysm, without rupture; E11.621 Type 2 diabetes mellitus with foot ulcer; L97.529 Non-pressure chronic ulcer of other part of left foot with unspecified severity; I11.9 Hypertensive heart disease without heart failure; M19.011 Primary osteoarthritis, right shoulder; M06.4 Inflammatory polyarthropathy; S46.901A Unspecified injury of unspecified muscle, fascia and tendon at shoulder and upper arm level, right arm, initial encounter; H40.9 Unspecified glaucoma; R91.8 Other nonspecific abnormal finding of lung field; M43.10 Spondylolisthesis, site unspecified; K02.9 Dental caries, unspecified; J32.2 Chronic ethmoidal sinusitis; J32.0 Chronic maxillary sinusitis; M85.80 Other specified disorders of bone density and structure, unspecified site; E87.1 Hypo-osmolality and hyponatremia; S00.03XA Contusion of scalp, initial encounter; Z71.9 Counseling, unspecified; Z79.899 Other long term (current) drug therapy; Z79.84 Long term (current) use of oral hypoglycemic drugs; W07.XXXA Fall from chair, initial encounter; Y93.89 Activity, other specified; Y92.009 Unspecified place in unspecified non-institutional (private) residence as the place of occurrence of the external cause; Z91.81 History of falling; Z90.49 Acquired absence of other specified parts of digestive tract; Z82.49 Family history of ischemic heart disease and other diseases of the circulatory system; Z82.61 Family history of arthritis
CPT/HCPCS: 96360; 96361 ×2; 96372; 99285; 36415; 93005; 93306; 80053 ×2; 83735 ×2; 84484; 85025; 81001; 80306; 87086; 87077; 87186; 87635; 73030; 73060; 72125; 70450; 71275; G0378 ×3; G0480; Q9967; J1644; 80320

== ENCOUNTER → 2021-10-12 | Outpatient (CLI) | payer OTHER ==
[~2021-10-12] MED LIST: REGADENOSON 0.4 MG/5 ML SYRINGE IV PRN
--- NOTE | 2021-10-12 12:32 | NM ---
EXAMINATION TYPE: NM stress lexiscan cardiolite DATE OF EXAM: 10/12/2021 COMPARISON: NONE HISTORY: 61-year-old male syncope TECHNIQUE: After the intravenous administration of 9.59 mCi Tc 99m Sestamibi - Cardiolite resting SP ECT images acquired 45 minutes post injection. The patient received 0.4mg Lexiscan, 24.5 mCi Tc 99m Sestamibi - Stress images obtained [address] injection FINDINGS: Review of stress and rest SPECT images demonstrates no distinct perfusion abnormality. Gated analysi s shows normal wall motion with an estimated left ventricular ejection fraction of 57 %. TID is calc ulated at 0.88, within normal limits. IMPRESSION: No scintigraphic evidence for reversible ischemia.
--- NOTE | 2021-10-12 13:29 | P.STRESS ---
- Stress Test Note Stress Test Results/Findings: Exam Performed: NM stress lexiscan cardiolite Exam Date: 10/12/21 Reason for Exam: Syncope Height: 5 ft 10 in Weight: 104.326 kg Protocol: Lexiscan Stage: na Duration of Exercise: na Resting Heart Rate: 67 Resting Blood Pressure: 144/86 Maximum Achieved Heart Rate: 79 Maximum Achieved Blood Pressure: 144/86 85% PMHR: 124 100% PMHR: 158 METS: na Technologist Comment: Stress Test Results/Findings: At baseline EKG showed normal sinus rhythm, normal axis, no significant ST or T- wave abnormalities. Patient recieved IV infusion of Lexiscan 0.4mg and at peak infusion EKG showed no significant change from baseline. Conclusions: 1. Normal EKG response to Lexiscan infusion 2. Nuclear imaging to be reported separately.
--- NOTE | 2021-10-13 12:00 | ECHOS ---
Stress Test Results/Findings: Exam Performed: NM stress lexiscan cardiolite Exam Date: 10/12/21 Reason for Exam: Syncope Height: 5 ft 10 in Weight: 104.326 kg Protocol: Lexiscan Stage: na Duration of Exercise: na Resting Heart Rate: 67 Resting Blood Pressure: 144/86 Maximum Achieved Heart Rate: 79 Maximum Achieved Blood Pressure: 144/86 85% PMHR: 124 100% PMHR: 158 METS: na Technologist Comment: Stress Test Results/Findings: At baseline EKG showed normal sinus rhythm, normal axis, no significant ST or T- wave abnormalities. Patient received IV infusion of Lexiscan 0.4mg and at peak infusion EKG showed no significant change from baseline. Conclusions: 1. Normal EKG response to Lexiscan infusion 2. Nuclear imaging to be reported separately. MTDD
== END | disposition home or self-care (01) ==
LOC: RADNMMAIN 08:21
PROVIDERS: ATTEND Internal Medicine
DX: Z01.810 Encounter for preprocedural cardiovascular examination (principal); R55 Syncope and collapse; R06.02 Shortness of breath
CPT/HCPCS: 93017; 78452; A9500; J2785

== ENCOUNTER 2021-10-21 09:04 | Day surgery (SDC) | payer OTHER ==
[2021-08-17 14:20] VITALS: BMI 33.0
--- NOTE | 2021-10-20 14:16 | HP ---
HISTORY AND PHYSICAL DATE OF SURGERY: 10/21/2021 Bassam Alicea is a 61-year-old gentleman seen with progressive right shoulder pain. We discussed options. He elected to proceed with arthroscopy. Consent was obtained. Medical clearance was provided by Dr. Potter. PAST MEDICAL HISTORY: Hypertension, [id number] diabetes. PAST SURGICAL HISTORY: Cataract surgery. DAILY MEDICATIONS: Glipizide, losartan, metformin. ALLERGIES: NONE. SOCIAL HISTORY: He denies tobacco use. PHYSICAL EVALUATION OF THE RIGHT SHOULDER: Flexion is 10 degrees. Abduction is 20 degrees. External rotation zero degrees with significant pain and weakness. Tenderness along the anterolateral acromion and rotator cuff insertion. Impingement is positive 30 degrees. Drop-arm sign is positive. Distal neurovascular exam is intact. Radiographs of the right shoulder revealed a healed tuberosity fracture with severe acromioclavicular joint osteoarthritis. MRI right shoulder revealed a large rotator cuff tear along with a healing tuberosity fracture. IMPRESSION: 1. Right shoulder impingement with rotator cuff tear. 2. Right shoulder acromioclavicular joint osteoarthritis. 3. History of previous tuberosity fracture. 4. Hypertension. 5. [id number] diabetes. PLAN: Right shoulder arthroscopy with subacromial decompression, arthroscopic rotator cuff repair, Abilio procedure and debridement. MMODL / IJN: [id number] /
[~2021-10-21 09:04] MED LIST changes: +DEXAMETHASONE SOD PHOSPHATE 4 MG/ML 1 ML VIAL IV ONE; +HYDROmorphone 0.5 MG/0.5 ML SYRINGE IVP PRN; +LACTATED RINGERS 1,000 ML IV SCH; +LIDOCAINE 1% (10MG/ML) FOR IV START INTRADERMA PRN; +MIDAZOLAM 2 MG/2 ML VIAL IV PRN; +ONDANSETRON 4 MG/2 ML VIAL IVP ONE; -REGADENOSON 0.4 MG/5 ML SYRINGE IV PRN
[2021-10-21] MEDS ORDERED: ONDANSETRON 4 MG/2 ML VIAL IVP ONE (10:18)
[2021-10-21] MEDS ORDERED: DEXAMETHASONE SOD PHOSPHATE 4 MG/ML 1 ML VIAL IVP ONE (10:19)
[2021-10-21 10:23] LABS: Glucose,Whole Blood 115 mg/dL (75-99)
[2021-10-21 10:31] LABS: Basophils # (A) 0.1 k/uL (0-0.2); Basophils % (A) 1 %; Eosinophils # (A) 0.5 k/uL (0-0.7); Eosinophils % (A) 6 %; HCT 39.2 % (39.0-53.0); HGB 12.9 gm/dL (13.0-17.5); Lymphocytes # (A) 1.7 k/uL (1.0-4.8); Lymphocytes % (A) 20 %; MCH 29.4 pg (25.0-35.0); MCHC 32.9 g/dL (31.0-37.0); MCV 89.4 fL (80.0-100.0); Mean Platelet Volume 7.2; Monocytes # (A) 0.5 k/uL (0-1.0); Monocytes % (A) 6 %; Neutrophils # (A) 5.6 k/uL (1.3-7.7); Neutrophils % (A) 65 %; Platelet Count 405 k/uL (150-450); RBC 4.39 m/uL (4.30-5.90); RDW 14.1 % (11.5-15.5); WBC 8.6 k/uL (3.8-10.6)
[2021-10-21] MEDS ORDERED: MIDAZOLAM 2 MG/2 ML VIAL IVP ONE (10:40)
[2021-10-21] MEDS ORDERED: LIDOCAINE 1% INJ 10MG/ML (20 ML MDV) ONE (11:02)
[2021-10-21] MEDS ORDERED: ROPIVACAINE 5 MG/ML 30 ML VIAL ONE (11:02)
[2021-10-21] MEDS ORDERED: SUCCINYLCHOLINE CHLORIDE 100 MG/5 ML SYR IV ONE (11:02)
[2021-10-21] MEDS ORDERED: PHENYLEPHRINE-0.9% NACL SYG 1,000 MCG/10 ML SYRINGE ONE (11:02)
[2021-10-21] MEDS ORDERED: fentaNYL (PF) 50 MCG/ML 2 ML AMP ONE (11:02)
[2021-10-21] MEDS ORDERED: PROPOFOL 10 MG/ML 20 ML VIAL IV ONE (11:02)
[2021-10-21 11:03] LABS: Potassium 5.5 mmol/L (3.5-5.1)
--- NOTE | 2021-10-21 12:10 | P.OP ---
Date of Procedure: 10/21/21 Preoperative Diagnosis: Left shoulder impingement Postoperative Diagnosis: 1. Left shoulder impingement 2. Left shoulder massive retracted unrepairable rotator cuff tendon tear 3. Left shoulder superficial labral tear 4. Left shoulder large bony defect involving the greater tuberosity Procedure(s) Performed: 1. Left shoulder arthroscopic subacromial decompression 2. Left shoulder arthroscopic debridement labral tear Implants: None Anesthesia: GETA, regional (Interscalene block) Surgeon: Theron Street Estimated Blood Loss (ml): 8 Pathology: none sent Condition: stable Disposition: PACU Indications for Procedure: 61-year-old patient seen with progressive right shoulder pain. After having treatment options discussed elected to proceed with arthroscopy. Operative Findings: see description of procedure Description of Procedure: Patient underwent an interscalene block by department of anesthesia. The patient was then taken to the operative suite. The patient underwent a general anesthetic by the department of anesthesia. The patient was placed into a lateral position and secured. There was appropriate padding of the bony prominence. Right shoulder was then prepped and draped in normal sterile orthopedic fashion. We placed the extremity in 10 pounds of longitudinal traction. A posterior incision was now made for a posterior working portal site. The trocar and cannula were inserted into the glenohumeral joint. Arthroscopy was initiated. Spinal needle was now inserted anteriorly, to ascertain the anterior working portal site. An incision was now made in that area, a trocar was inserted followed by a probe. There was superficial tearing of the anterior superior labrum. The biceps tendon was absent. I conveyed I could not visualize any intact rotator cuff tendon. I introduced a motorized shaver and debrided the superficial labral tears. The residual labrum was stable. Instruments were now removed from the glenohumeral joint. Utilizing the posterior working portal site, the trocar and cannula were inserted into the subacromial space. Arthroscopy initiated. I made an incision 2 fingerbreadths lateral to the acromion. I introduced my trocar followed by my ArthroCare ablator. I now began ablating thick subacromial bursal tissue, which exposed the undersurface of the anterior acromion. There was diminished subacromial space. There was a very prominent anterior acromion. A motorized bur was introduced and a subacromial decompression was performed. I also excised some osteophytes off the inferior aspect of the distal clavicle. The AC joint was visualized and noted to be moderately arthritic, not enough toward a Abilio procedure. I now turned my attention to the rotator cuff. I could not visualize any rotator cuff well. There was a large extensive bony defect involving the greater tuberosity. This bony defect went from the margin of the articular surface distally approximately 2 cm and it spanned the anterior lateral aspect of the humeral head. The articular cartilage was stable. I now began probing the proximal area looking for any tendon tissue. I could not find any viable tendon tissue. I spent quite a bit of time trying to explore the medial aspect try to find any intact tendon tissue. There was no tendon tissue to attempt a repair. Instruments now removed from the portal sites. All portal sites were approximated with nylon suture. Sterile dressings were applied followed by a shoulder sling. The patient was awakened, transferred to a bed, and taken to recovery in stable condition. The patient's prognosis obvious guarded given the fact that he had no tendon tissue to attempt a repair.
[2021-10-21 12:11] VITALS: TEMP 97.9
[2021-10-21 12:47] VITALS: BP 137/77; RESP 16
[2021-10-21 13:11] VITALS: PULSE 72
--- NOTE | 2021-10-21 20:17 | P.ANPRN ---
Procedure Note - Anesthesia - Nerve Block Performed Right Interscalene Single Time Out Performed: Yes Date of Procedure: 10/21/21 Procedure Start Time: 10:30 Procedure Stop Time: 10:39 Location of Patient: PreOp Indication: Acute Post-Operative Pain, Dx/Pain Location, Requested by Surgeon Specifically requested for management of pain by : Theron Street Sedation Type: Sedate with meaningful contact maintained Preparation: Sterile Prep Position: Supine Catheter: None Needle Types: Facet Needle Gauge: 20 Ultrasound used to visualize needle placement: Yes Ultrasound used to observe medication spread: Yes Injectate: 0.5% Ropivacaine (see comment for volume) Blood Aspirated: No Pain Paresthesia on Injection Noted: No Resistance on Injection: Normal Image Stored and Saved: Yes Events: Uneventful and Well Tolerated (20cc)
--- NOTE | 2021-11-02 12:03 | CDI ---
[facility] [place] [address] [place] [address] Date: 10/28/2021 04:32:00 PM From: Consuelo Strong Phone: Admit Date: 10/21/2021 09:04:00 AM Patient Name: Bassam Alicea Visit Number: [id number] Discharge Date: Payor: [facility] [place]. Street, Please provide clarification on the laterality of he procedure performed. H&P states right and procedure not states left. Please clarify. Thank you for your kind consideration. Right shoulder MTDD
== END 2021-10-21 13:34 | disposition home or self-care (01) ==
LOC: OR 09:04
PROVIDERS: ATTEND Orthopaedic Surgery
DX: M75.121 Complete rotator cuff tear or rupture of right shoulder, not specified as traumatic (principal); M25.811 Other specified joint disorders, right shoulder; S43.431A Superior glenoid labrum lesion of right shoulder, initial encounter; X58.XXXA Exposure to other specified factors, initial encounter; M19.011 Primary osteoarthritis, right shoulder; M89.9 Disorder of bone, unspecified; M25.711 Osteophyte, right shoulder; E11.9 Type 2 diabetes mellitus without complications; I10 Essential (primary) hypertension; H40.9 Unspecified glaucoma; R55 Syncope and collapse; Z86.16 Personal history of COVID-19; I71.2 Thoracic aortic aneurysm, without rupture; Z98.49 Cataract extraction status, unspecified eye; Z82.49 Family history of ischemic heart disease and other diseases of the circulatory system; Z79.84 Long term (current) use of oral hypoglycemic drugs; Z79.899 Other long term (current) drug therapy
CPT/HCPCS: 29826; 29827; 64415; 76942; 80051; 85025; J2250; J1100; J0690; J2405; J2001; J3010; J2795; J2370; J0330; J2704

== ENCOUNTER 2022-01-18 11:47 | Emergency (ER) | payer OTHER ==
[2022-01-18 11:51] VITALS: TEMP 98.5
[2022-01-18] MEDS ORDERED: MORPHINE SULFATE 4 MG/ML SYRINGE IVP STA (12:16)
--- NOTE | 2022-01-18 12:18 | ED ---
General Adult HPI - General Chief complaint: Back Pain/Injury Stated complaint: Back Pain Time Seen by Provider: 01/18/22 11:57 Source: patient, RN notes reviewed Mode of arrival: EMS Limitations: no limitations - History of Present Illness Initial comments: Patient is a pleasant 61-year-old male presenting to the emergency department with concerns with lower back pain. Onset of symptoms was around a week ago. Patient was going from sitting to standing. Discomfort has been moderate but significantly increases with movement. Patient has had some mild lower back comes in the past however not significant. Patient denies any weakness or loss of sensation. No loss of control of bowel or bladder function. No fever. No abdominal pain. - Related Data Home Medications Medication Instructions Recorded Confirmed glipiZIDE [Glucotrol] 5 mg PO AC-BID 04/02/18 10/21/21 Brimonidine Tartrate/Timolol 1 drop BOTH EYES BID 02/26/21 10/21/21 [Combigan 0.2%-0.5% Eye Drops] Latanoprost [Xalatan 0.005%] 1 drop BOTH EYES HS 02/26/21 10/21/21 metFORMIN HCL [Glucophage] 1,000 mg PO BID 02/26/21 10/21/21 Losartan Potassium 100 mg PO QAM 09/17/21 10/21/21 Acetaminophen Tab [Tylenol] 650 mg PO Q4H PRN 10/20/21 10/21/21 Previous Rx's Medication Instructions Recorded HYDROcodone/APAP 7.5-325MG [[place] 1 each PO Q6HR PRN #28 tab 10/21/21 7.5] Cyclobenzaprine [Flexeril] 10 mg PO TID PRN #12 tablet 01/18/22 predniSONE [Deltasone] 20 mg PO BID #10 tab 01/18/22 Allergies Allergy/AdvReac Type Severity Reaction Status Date / Time No Known Allergies Allergy Verified 01/18/22 11:51 Review of Systems ROS Statement: Those systems with pertinent positive or pertinent negative responses have been documented in the HPI. ROS Other: All systems not noted in ROS Statement are negative. Constitutional: Denies: fever Eyes: Denies: eye pain ENT: Denies: ear pain Respiratory: Denies: cough, dyspnea Cardiovascular: Denies: chest pain Endocrine: Denies: fatigue Gastrointestinal: Denies: abdominal pain Genitourinary: Denies: dysuria Musculoskeletal: Denies: back pain Skin: Denies: rash Neurological: Denies: weakness Past Medical History Past Medical History: Diabetes Mellitus, Eye Disorder, Hypertension, Syncope Additional Past Medical History / Comment(s): BILATERAL GLAUCOMA. "2 episodes of passing out in early/mid , had Cardiology work up and everything checked out ok." Tested positive for Covid 09/17/21, had no symptoms. Aneurysm " not big enough to need surgery." History of Any Multi-Drug Resistant Organisms: None Reported Past Surgical History: Cholecystectomy, Orthopedic Surgery Additional Past Surgical History / Comment(s): Left 5th toe amputation, cataract surgery and retina repair. Past Anesthesia/Blood Transfusion Reactions: No Reported Reaction Past Psychological History: No Psychological Hx Reported Smoking Status: Never smoker Past Alcohol Use History: None Reported Past Drug Use History: None Reported - Past Family History Father Family Medical History: AFIB, Hypertension Mother Family Medical History: Rheumatoid Arthritis (RA) General Exam Limitations: no limitations General appearance: alert, in no apparent distress Head exam: Present: normocephalic Eye exam: Present: normal appearance Neck exam: Present: normal inspection Respiratory exam: Present: normal lung sounds bilaterally Cardiovascular Exam: Present: regular rate, normal rhythm Expanded Peripheral pulses: 2+: Posterior Tibialis (R), Posterior Tibialis (L), Dorsalis Pedis (R), Dorsalis Pedis (L) GI/Abdominal exam: Present: soft. Absent: tenderness, pulsatile mass Extremities exam: Present: normal inspection Back exam: Present: vertebral tenderness (Mild tenderness lower lumbar spine) Neurological exam: Present: alert. Absent: motor sensory deficit Expanded Sensory exam: Lower Extremity Light Touch: Normal Motor strength exam: RLE: 5, LLE: 5 Psychiatric exam: Present: normal affect, normal mood Skin exam: Present: normal color Course Vital Signs 01/18/22 01/18/22 11:48 12:56 Temperature 98.5 F Pulse Rate 89 86 Respiratory 20 18 Rate Blood Pressure 120/74 95/77 O2 Sat by Pulse 98 99 Oximetry Medical Decision Making - Medical Decision Making Reevaluated and updated - Radiology Data Radiology results: image reviewed (Severe degenerative disc disease L5-S1 with facet arthropathy. Suspect foraminal encroachment.) Disposition Clinical Impression: Low back pain Disposition: HOME SELF-CARE Condition: Stable Instructions (If sedation given, give patient instructions): Acute Low Back Pain (ED) Additional Instructions: Please follow-up with primary care physician as well as back doctor in the next couple days for recheck, number given. Descriptions have been sent to pharmacy. If symptoms continue consider physical therapy. Return for fever, weakness, loss of control of bowel or bladder, loss of sensation, worsening symptoms or other concerns. Prescriptions: predniSONE [Deltasone] 20 mg PO BID #10 tab Cyclobenzaprine [Flexeril] 10 mg PO TID PRN #12 tablet PRN Reason: Pain Is patient prescribed a controlled substance at d/c from ED?: No Referrals: Anthony Potter [Primary Care Provider] - 1-2 days Chris Whitfield DO [Doctor of Osteopathic Medicine] - 1-2 days Time of Disposition: 13:16
--- NOTE | 2022-01-18 12:57 | XR ---
EXAM TYPE: LUMBAR SPINE X RAY SERIES COMPARISON: NONE HISTORY: Pain TECHNIQUE: 3 views are submitted. FINDINGS: Alignment is anatomic. The pedicles are intact. The transverse processes are intact. There is karly re degenerative disc disease L5-S1 with multilevel facet arthropathy most marked at L5-S1. Suspect fo raminal encroachment. Diffuse osteopenia. IMPRESSION: 1. Severe degenerative disc disease L5-S1 with facet arthropathy. Suspect bilateral foraminal encroac hment.
[2022-01-18 12:58] VITALS: RESP 18
[2022-01-18 13:41] VITALS: BP 92/67; PULSE 74
== END 2022-01-18 14:25 | disposition home or self-care (01) ==
LOC: EC 11:47
DX: M54.50 Low back pain, unspecified (principal); E11.9 Type 2 diabetes mellitus without complications; I10 Essential (primary) hypertension; Z79.84 Long term (current) use of oral hypoglycemic drugs; Z79.899 Other long term (current) drug therapy
CPT/HCPCS: 72100; 99283; 96374; J2270